=== PATIENT | female | born 1940 | race Caucasian/White ===

== ENCOUNTER → 2018-03-20 11:52 | Outpatient (CLI) | payer MEDICARE, OTHER, SELFPAY ==
[2018-03-20 12:52] LABS: Add Manual Diff / Slide Review NO; Basophils Percent Auto 1.1 % (0-2); Eosinophils Percent Auto 0.6 % (2-4); Hematocrit 41.7 % (36-46); Lymphocytes Percent Auto 20.7 % (25-40); Mean Corpuscular HGB Conc 33.5 % (30-36); Mean Corpuscular Hemoglobin 30.6 PG (26-34); Mean Corpuscular Volume 91.2 fL (80-100); Monocytes Percent Auto 4.8 % (3-14); Neutrophils Absolute Auto 6200 /uL (3000-5900); Neutrophils Percent Auto 72.8 % (50-75); Platelet Count 319 X10^3/uL (150-400); Red Blood Cell Count 4.58 X10^6/uL (4.0-5.2); White Blood Cell Count 8.6 X10^3/uL (4.5-11.0)
[2018-03-20 13:06] LABS: BUN Creatinine Ratio 25.7 (6-22); Blood Urea Nitrogen 18 mg/dL (7-17); C-Reactive Protein Quant < 0.5 mg/dL (<1.0); Carbon Dioxide 24 mmol/L (22-32); Chloride 102 mmol/L (98-107); Estimated Glomerular Filt Rate > 60.0 mL/min (>60); Glucose 119 mg/dL (80-110); HEMOLYSIS < 15 (0-50); Potassium 4.5 mmol/L (3.4-5.1); Sodium 136 mmol/L (137-145)
[2018-03-20 13:39] LABS: Erythrocyte Sedimentation Rate 5 MM/HR (0-20)
== END ==
PROVIDERS: PCP Physician Assistant Medical; Visit Provider Orthopaedic Surgery
DX: M25.551 Pain in right hip (principal)
CPT/HCPCS: 36415; 80048; 85025; 85651; 86140

== ENCOUNTER → 2018-04-17 10:44 | Outpatient (CLI) | payer MEDICARE, OTHER, SELFPAY | PROVIDERS: PCP Physician Assistant Medical; Visit Provider Orthopaedic Surgery | DX: M79.645 Pain in left finger(s) (principal); Z01.812 Encounter for preprocedural laboratory examination ==

== ENCOUNTER → 2018-05-06 09:58 | Outpatient (CLI) | payer MEDICARE, OTHER, SELFPAY ==
--- NOTE | 2018-05-06 | DI.MRI.S_ITS ---
PROCEDURE: MR HAND LT WO/W CON INDICATIONS: LEFT HAND PAIN TECHNIQUE: Coronal and axial T1 spin echo and T2 fast spin echo with fat saturation. Post-contrast coronal and axial T1 spin echo with fat saturation images through the left hand and wrist. COMPARISON: None. FINDINGS: Image quality: Excellent. Bones and cartilage: There is lateral subluxation of left thumb at the level of first CMC joint. There is complete loss of first CMC joint space with extensive subchondral sclerosis and cyst formation. Mild to moderate osteoarthritic changes are noted throughout first through fifth interphalangeal joints and MCP joints most prominent first and second MTP joints. Moderate osteophytic changes also noted throughout radiocarpal, ulnar carpal and intercarpal joints particularly involving the scaphotrapezial joint. Intraosseous cysts are noted within the trapezium, trapezoid, capitate, scaphoid and lunate. No fracture or dislocation is seen. Edema in first metacarpal base, trapezium and scaphoid are seen suggestive of changes secondary to osteoarthritis. There is suggestion of subtle bony erosive changes involving ulnar aspect of triquetrum and proximal portion of the scaphoid. Subtle erosive changes also likely present at the first CMC joint. After IV contrast infusion, no areas of intraosseous abnormal enhancement is seen. Synovium: Small amount of fluid is seen throughout wrist joints, CMC joints and MCP joints with mild contrast enhancement of the synovium suggestive of inflammatory changes. Soft tissues: Flexor and extensor tendons of left hand are grossly intact. Limited evaluation of intrinsic and extrinsic ligaments of left wrist shows no definite wrist ligament tear. Collateral ligaments of the MCP joints and interphalangeal joints are grossly intact. IMPRESSION: 1. Extensive joint space narrowing throughout left hand and wrist joints as described in detail above most prominent involving the first CMC joint with lateral subluxation. Subtle erosive changes are noted involving radiocarpal, ulnocarpal, as well as first CMC joint and scaphotrapezial joint. Enhancement of synovium throughout wrist joints suspicious for inflammatory arthropathy superimposed on extensive osteoarthritic changes in the wrist and hand. 2. Visualized tendons and ligaments are grossly intact. Dictated by: Manuel Malloy M.D. on 05/06/2018 at 14:54 Approved by: Manuel Malloy M.D. on 05/06/2018 at 15:12
[2018-05-06 10:21] LABS: BUN Creatinine Ratio 18.8 (6-22); Blood Urea Nitrogen 15 mg/dL (7-17); Estimated Glomerular Filt Rate > 60.0 mL/min (>60)
== END ==
PROVIDERS: PCP Physician Assistant Medical; Visit Provider Orthopaedic Surgery
DX: M79.645 Pain in left finger(s) (principal); Z01.812 Encounter for preprocedural laboratory examination
CPT/HCPCS: 36415; 73220; 82565; 84520

== ENCOUNTER 2019-04-29 14:08 | Observation (INO) | payer MEDICARE, OTHER, SELFPAY ==
[2019-04-29] VITALS (12 sets, daily range): BP systolic 124–157; BP diastolic 47–65; PULSE 61–80; RESP 14–23; TEMP 36.2–37.1; O2SAT 92–96; BMI 24.1
--- NOTE | 2019-04-29 15:15 | SUR.OPER ---
Supine on padded OR bed, head on pillow, right arm secured on padded arm board at <90 degrees abduction, left arm on hand table, legs uncrossed, safety belt at thigh, pillow under knees, tape over blanket over lower legs.
--- NOTE | 2019-04-29 15:30 | PM.PREOP ---
Pre-operative Note Interval Note History & Physical reviewed/Exam performed by Physician: Yes Changes to H&P: No
--- NOTE | 2019-04-29 15:36 | PM.HP.1 ---
History of Present Illness Date Patient Seen: 04/29/19 Time Patient Seen: 15:36 Chief complaint: Incision and Drainage Wound/Extremity Narrative: Patient with a 4 day history of redness and swelling and pain to the left hand. Patient gives a history of some drainage coming from the area around her basal joint Patient History Surgical History History of tonsillectomy Status post appendectomy Social History household members: none Family & Social History Social History: household members none Meds Home Medications Medication Instructions Recorded Confirmed Type Tirosint 50 mcg PO QDAY #0 cap 04/17/16 04/29/19 History leflunomide [Arava] 20 mg PO QDAY #0 04/17/16 04/29/19 History hydroxychloroquine 200 mg PO BIDCC #0 tab 07/10/16 04/29/19 History OMEGA-3 FATTY ACIDS (FISH OIL) 500 mg PO QDAY #0 09/18/16 04/29/19 History prednisone 5 mg PO QDAY #0 09/18/16 04/29/19 History acetaminophen [Tylenol Extra 2 tab PO BIDP PRN #0 12/22/17 04/29/19 History Strength] carvedilol 25 mg PO DAILY 04/29/19 04/29/19 History cephalexin 1 tab PO QID 04/29/19 04/29/19 History losartan 75 mg PO BID 04/29/19 04/29/19 History potassium chloride 10 meq PO DAILY 04/29/19 04/29/19 History spironolactone 25 mg PO DAILY 04/29/19 04/29/19 History Allergies Allergy/AdvReac Type Severity Reaction Status Date / Time celecoxib [From CELEBREX] AdvReac Severe GI UPSET Verified 04/29/19 15:12 hydrocodone [HYDROCODONE] AdvReac Severe DIZZY, GI Verified 04/29/19 15:12 UPSET levetiracetam [LEVETIRACETAM] AdvReac Severe I WAS Verified 04/29/19 15:12 BOUNCING OFF THE VILLA primidone [PRIMIDONE] AdvReac Severe DIZZY, GI Verified 04/29/19 15:12 UPSET sulfadiazine [SULFADIAZINE] AdvReac Unknown DIZZINESS, Verified 04/29/19 15:12 GI UPSET, FATIGUE Review of Systems Review of Systems All systems reviewed & are unremarkable except as noted in HPI and below Exam Vital Signs (past 8 hours): - 04/29/19 15:02 Temperature 98.3 F Pulse Rate 67 Respiratory Rate 20 Blood Pressure 144/65 H Pulse Oximetry 96 Oxygen Delivery Method Room Air Narrative Exam Narrative: Redness and swelling involving the hand. Patient is able to move the wrist but does have some difficulty moving the fingers mainly due to swelling and pain. No sign of any infection into the fingers themselves. Seems to be isolated from a possible ganglion cyst coming from the wrist. Assessment & Plan Assessment & Plan narrative: Patient with possible left hand infection. Due to the swelling and pain, patient is interested in a irrigation and debridement of the left hand. Fully understands the risks and limitations associated with the procedure.
[2019-04-29] MEDS: CEFAZOLIN 2 GM/100 ML FROZ.PIGGY IV (16:30)
[2019-04-29] MEDS: BUPIVACAINE 0.25% W/ EPI 30 ML VIAL INJ (16:36)
--- NOTE | 2019-04-29 16:54 | PM.OP.1 ---
Operative Date/Time/Diagnoses Date of procedure: 04/29/19 Time of procedure: 16:00 Pre-op diagnosis: Left hand infection Post-op diagnosis: same Procedure & Clinicians Procedure: Irrigation and debridement of left hand Same procedure as scheduled: Yes Indications: Patient with a history swelling and pain to the hand that started on Friday. Started to notice drainage yesterday. Surgeon: Truman Blevins Click Yes if Unassisted: Yes Anesthesia Type: General Operative Notes Findings: Superficial infection coming from the radial aspect of the wrist. With some tracking of both volarly and dorsally. No sign of any bony involvement. No sign of any involvement of the basal joint or radiocarpal joint. Closure Type: primary Specimen(s): other (Specimen sent for cultures and sensitivities) Applied: drain(s) Estimated Blood Loss (mL): 10 Blood products transfused: none Procedure in detail: On date of service, patient was met in the holding area. The surgeries once again discussed with the patient in remaining questions or concerns she had were answered fully. Patient was taken back to the operating theater and placed on the operating table in a supine position. Great care was taken to ensure that all bony prominences were appropriately padded. Time-out was performed verifying patient's name, procedure, and operative site. The left arm was prepped and draped in the normal sterile fashion. Patient already had a open wound to the radial aspect of the wrist just distal to the radial styloid. There was positive drainage from this open wound. This fluid was swabbed and sent to microbiology. Fifteen blade was used to extend the opening both distally and proximally. Was also used to excise some of the skin around the open wound. Bipolar electrocautery was used to achieve hemostasis. Pickups and tenotomies were then used to bluntly dissect both dorsally and volarly. There was no sign of any abscess formations or any other pockets of fluid. The wound was copiously irrigated with a L of saline. No sign of any additional drainage and no sign of any additional purulence. The wound was then packed with iodoform and then closed loosely. The hand was then cleaned, dried, and dressed patient was placed into a splint and taken to the PACU in stable condition. Complications: none Condition: stable Disposition: PACU Plan for aftercare: Patient will be admitted for IV antibiotics. Once we get final cultures results patient can be discharged home.
[2019-04-29] MEDS: LACTATED RINGERS 1,000 ML 42 ML IV (17:21)
[2019-04-29] MEDS: OXYCODONE IR 10 MG TABLET PO (18:00)
[2019-04-29] MEDS: LACTATED RINGERS 1,000 ML 125 ML IV (18:21)
[2019-04-29 19:22] LABS: Estimated Glomerular Filt Rate > 60.0 mL/min (>60)
[2019-04-29] MEDS: VANCOMYCIN 1,000 MG/200 ML PIGGYBACK 200 MG IV (19:28)
[2019-04-29] MEDS: LOSARTAN 50 MG TABLET 75 MG PO (20:58)
[2019-04-29] MEDS: DOCUSATE 100 MG CAPSULE PO (20:58)
[2019-04-30] VITALS (7 sets, daily range): BP systolic 114–163; BP diastolic 50–77; PULSE 56–74; RESP 15–20; TEMP 35.9–36.8; O2SAT 91–95
[2019-04-30] MEDS: OXYCODONE IR 10 MG TABLET PO (04:23)
[2019-04-30] MEDS: LEVOTHYROXINE 50 MCG TABLET PO (04:23)
[2019-04-30 05:18] LABS: Hematocrit 34.6 % (36-46); Hemoglobin 11.7 g/dL (12.0-16.0); Mean Corpuscular HGB Conc 33.7 % (30-36); Mean Corpuscular Hemoglobin 31.8 PG (26-34); Mean Corpuscular Volume 94.2 fL (80-100); Platelet Count 209 X10^3/uL (150-400); Red Blood Cell Count 3.68 X10^6/uL (4.0-5.2); Red Cell Distribution Width 14.3 % (11.6-14.8); White Blood Cell Count 16.5 X10^3/uL (4.5-11.0)
[2019-04-30] MEDS: VANCOMYCIN 1,000 MG/200 ML PIGGYBACK 200 MG IV (06:47)
[2019-04-30] MEDS: METOCLOPRAMIDE 10 MG/2 ML INJ IV ×2 (07:54→14:48)
--- NOTE | 2019-04-30 08:43 | P.PN_ITS ---
Subjective Date Patient Seen: 04/30/19 Time Patient Seen: 08:41 Interval history: Patient is postoperative day 1. Of an I&D of her left hand. Patient states that she has noticed significant improvement in pain. Patient was in a considerable amount of pain before surgery and right now is relatively pain-free and has not required any pain medication. Patient has also noticed a marked improvement in range of motion of her fingers. Patient's Gram stain did not show any organisms. Still waiting on cultures and sensitivities. Patient still has an elevated white count. Exam Vital Signs (past 8 hours): - 04/30/19 03:09 04/30/19 04:27 04/30/19 07:28 Temperature 98.0 F 98.2 F 97.8 F Pulse Rate 71 73 62 Respiratory Rate 16 18 18 Blood Pressure 120/50 L 137/69 163/77 H Pulse Oximetry 95 94 95 Oxygen Delivery Method Room Air Narrative Exam Narrative: On physical exam, swelling to the fingers is decreased. Patient can easily flex and extend the fingers without any pain or discomfort. Motion is greatly improved compared to preoperatively. Patient's splint is intact. Th e dressing is clean and dry. Objective Labs Result Diagrams: 04/30/19 05:05 04/29/19 19:08 Labs: Laboratory Results - last 24 hr 04/29/19 04/29/19 04/30/19 18:30 19:08 05:05 WBC 16.5 H RBC 3.68 L Hgb 11.7 L Hct 34.6 L MCV 94.2 MCH 31.8 MCHC 33.7 RDW 14.3 Plt Count 209 Creatinine 0.80 Estimated GFR > 60.0 Nasal Screen MRSA (PCR) Negative for mrsa Assessment & Plan Post-op Postoperative Procedures Operation Date: 04/29/19 15:15 Actual Procedures Side Surgeon p Incision and Drainage hand Left Truman Blevins MD Postoperative day: 1 Postoperative status: doing well Postoperative status narrative: Patient doing well after I&D of the left hand. We are awaiting culture results. Once those come back week and then discharge patient home on oral medication. Quality VTE Deep Vein Thrombosis/Pulmonary Embolism Present on Admission: No
[2019-04-30] MEDS: LEFLUNOMIDE 20 MG TABLET PO (08:45)
[2019-04-30] MEDS: CARVEDILOL 25 MG TABLET PO (08:45)
[2019-04-30] MEDS: HYDROXYCHLOROQUINE 200 MG TABLET PO (08:46)
[2019-04-30] MEDS: POTASSIUM CHLORIDE 10 MEQ TAB PO (08:46)
[2019-04-30] MEDS: DOCUSATE 100 MG CAPSULE PO (08:46)
[2019-04-30] MEDS: predniSONE 5 MG TABLET PO (08:46)
[2019-04-30] MEDS: SPIRONOLACTONE 25 MG TABLET PO (08:46)
[2019-04-30] MEDS: LOSARTAN 50 MG TABLET 75 MG PO (08:46)
[2019-04-30] MEDS: ACETAMINOPHEN 325 MG TABLET 975 MG PO (08:49)
--- NOTE | 2019-04-30 09:25 | CM.DANOTE ---
Addendum entered by Hue Mojica LPN 05/01/19 09:06: Checked on case this morning as d/c to home and HH orders noted from last night. Will alert [facility] by phone of the d/c. No d/c summary is available in EMR from Dr. Blevins so am sending the Provider dc Instructions and the Home medication list plus the specific HH orders/now clarified for RN/PT/OT/CLEAN OUT DRILLER via fax to [facility]. They plan to see pt tomorrow/05/02. Addendum entered by Hue Mojica LPN 04/30/19 13:53: Met again with pt as planned. She is now up eating lunch and nursing staff confirm that she has been able to get to the bathroom by herself. She is asking for toiletries so that she can do her basic sink hygiene/ENVIRONMENTAL SCIENTIST is updated and will provide this. Pt says she is very much hoping to stay on until Friday but knows this is likely not possible. She is considering asking another person in her community who works as a massage therapist if she can help her. Went over caregiver agency specifics/resources given Discussed specifics of HH services: choice list: given: 1: [facility] . (referral to Cas who says first opening would be [facility]. She suggested looking at other agencies first. Called [facility] with: no answer Called [facility]: Andra answered, accepted referral, can go out Friday if pt d/c's by Friday. Pt is updated and agreeable to same. Will fax initial clinical plus orders and Face/Face when obtained. Discussed Meals on Wheels and provided the specifics of this program in pt's area:[facility]: Deliveries: [id number]: hot and frozen meals. Volunteers also check on the safety of the homebound individuals and alert the office if further senior services are needed. Contacts: [facility] in [place]: [phone] or [phone]: [place]: Meals on Wheels Junior Systems Analyst or Li Hicks: Ct Manager. Pt is updated and plans to follow up on this Friday. She says that her friend Mikhail Tinoco will be picking her up at d/c and is coming later to hospital to bring her fresh clothes and some personal items. Asked about adult children: she says all of them live in different states. She does say that she had designated Jyoti Coley: son: John as her DPOA. . He does not know she is in the hospital and is in midst of traveling to be with his adult son and DIL who are expecting first child momentarily. This info provided to [facility] to include on pt's demographic information. P: at this point: likely home when stable for same....[facility]: RN/OT/PT/CLEAN OUT DRILLER (pd for by Medicare benefit) and other resource options as stated: paid for privately by patient. Addendum entered by Hue Mojica LPN 04/30/19 11:06: Met with pt as planned, introduced self and role. Pt is found lying in bed, L hand with large wrapped bandage in place, emesis bag next to her. Pt says I just threw up for the 3rd time this morning. Pt says that she does get around well at baseline without any assistive device. She has had prior hip and knee surgeries and does own a FWW. Pt also noted she has Rheumatoid Arthritis and is on medication for same. Pt confirms she is not (it's been over 6 years now...will alert [facility] to update the face sheet info) and that she does not have anyone to assist her at home during her recovery. Her primary contact Mikhail Tinoco is a friend who also lives in [place] but who is currently dealing with issues re her house a and not available to help her. Pt said she was under the impression from the care team members that Medicare would pay for caregivers in her home. Explained pvt caregiving vs the Medicare coverage for [facility] (pt would qualify for RN/OT/PT and CLEAN OUT DRILLER). Meals on Wheels may be a possibility: [facility]: [phone]. Also let her know that a short snf setting was only a possibility if she paid privately: Have now confirmed with [facility]: admission status: OBServation services. Pt did express shock that she would need to be paying privately for any services. Pt would benefit from seeing PT/OT in the hospital to help determine the extent of the services she will need at home. (not for specific work with her infected hand but to help her learn to use the rest of her body with any helpful tips and equipment as she figures out how to function safely in her home setting.) Have talked with RN Sid rascon same and she agrees to alert this DCPlanner when Dr. Blevins comes back in today. Have also discussed this with RN Cathleen Amaya: at his advice have left a vm for Dr. Blevins via triage nurse line at clinic: [phone] requesting above orders. Will be following... Addendum entered by Hue Mojica LPN 04/30/19 09:59: Just discussed case in Team Rounds. Confirmed PT/OT are not ordered. DONOR RELATIONS COORDINATOR also indicates pt wants resources to help her in the home setting. Will plan to see her now. Admission status: in review: per [facility] Original Note: Discharge Planning/Care Management DCP: assessment: case received, EMR reveiwed. Pt is a 79 year old female who admitted 04/29 to care of orthopedic team: Dr. lBevins Pt was taken to surgery 04/29 for an I & D of left hand: on antibiotics with culture and sensitivities pending.. PCP: Marilyn Lyle Payer: Medicare and [facility] Discharge Assessment Start: 04/30/19 09:24 Freq: Status: Active Protocol: Document 04/30/19 09:25 ITV (Rec: 04/30/19 09:25 ITV [id number]) Discharge Planning Assessment Advance Directives? Yes History Provided By Patient Medical Record Prior Living Arrangements House Household Members none Review Status In Process
[2019-04-30] MEDS: ONDANSETRON 4 MG ODT PO (11:28)
--- NOTE | 2019-04-30 13:42 | PC.NURSE ---
Pt c/o generalized abd achiness that is causing n/v. She relates this to taking oxycodone on an empty stomach. She reports the same thing happens with she takes hydrocodone. Her PMH includes a dx of IBS. Asked pt if symptoms felt similar to IBS. She acknowledges that it is a similar feeling. Administered IV reglan and ODT zofran without much relief in abd ache or improvement with nausea. Pt states she normally takes a home medication, librax, twice daily for IBS. Updated home med rec. Pharmacist states we do not carry this medication. Pt states she is unable to obtain from home supply as no one would be able to bring it to her. Repositioned pt for comfort and provided pt with requested osmin trena. Plan is for pt to potentially d/c home today pending cultures. On AM rounds, Dr. Blevins states he will be back to round later today. Will monitor.
--- NOTE | 2019-04-30 18:47 | PC.NURSE ---
183- Patient having difficulty finding a ride home. [employer] called and they state they do not have enough drivers to send here for a tile picker. We are currently looking for a ride for the patient.
== END 2019-04-30 19:00 | disposition home health service (06) ==
LOC: OR 14:11 → ICU 04-30 11:10
PROVIDERS: Admitting Provider Orthopaedic Surgery; PCP Physician Assistant Medical; Visit Provider Orthopaedic Surgery
PROC: (CPT 25028; principal; 2019-04-29 15:15)
DX: B99.8 Other infectious disease (principal); E03.9 Hypothyroidism, unspecified; I50.9 Heart failure, unspecified; I11.0 Hypertensive heart disease with heart failure; M18.12 Unilateral primary osteoarthritis of first carpometacarpal joint, left hand; M05.79 Rheumatoid arthritis with rheumatoid factor of multiple sites without organ or systems involvement
CPT/HCPCS: 25028; 36415; 82565; 85027; 87070; 87075; 87077; 87147; 87186; 87205; 87797; 93005; 93010; G0378; J0330; J0690; J1100; J2405; J2704; J2765; J3010

== ENCOUNTER → 2020-06-07 11:13 | Outpatient (CLI) | payer MEDICARE, OTHER, SELFPAY ==
[2019-04-29 18:30] VITALS: BMI 24.1
--- NOTE | 2020-06-07 | DI.MRI.S_ITS ---
PROCEDURE: MR LUMBAR SPINE WO CON INDICATIONS: Radiculopathy, lumbar region TECHNIQUE: Noncontrast sagittal T1 spin echo and T2 fast echo, sagittal STIR, axial T1 and T2 fast spin echo through the lumbar spine. In cases with scoliosis, additional coronal T2 fast spin echo may be performed. COMPARISON: [facility] [place], CR, XR LUMBAR SPINE 2 OR 3 VIEWS, 02/20/2018, 11:09. FINDINGS: Image quality: Excellent. Alignment and Curvature: 5 lumbar type vertebral bodies are present by plain film. There is loss of normal lumbar lordosis. There is moderate rightward curvature of the mid lumbar spine. There is mild grade 1 retrolisthesis of T11 on T12, T12 on L1, and L4 on L5. Mild grade 1 anterolisthesis of L5 on S1. Bone Marrow: Marrow is of normal overall signal. No acute vertebral body compression fractures. Bilateral L5-S1 pars interarticularis defects. Mild reactive signal throughout the endplates of the lumbar and lower thoracic spine. Spinal Cord: Conus medullaris terminates at the mid L2 level. Visualized cord demonstrates normal signal and size. Paraspinous Soft Tissues: No paravertebral masses. L1-L2: Moderate disc height loss and desiccation. Moderate diffuse disc bulge. Mild bilateral facet hypertrophy. Mild epidural lipomatosis. Mild canal stenosis. Moderate right and mild left foraminal stenosis. L2-L3: Moderate disc height loss and desiccation. Mild diffuse disc bulge/osteophyte. Mild bilateral facet hypertrophy. Mild epidural lipomatosis. Mild canal stenosis. Moderate left and mild right foraminal stenosis. L3-L4: Moderate disc height loss and desiccation. Mild diffuse disc bulge with superimposed broad-based left posterolateral protrusion. Mild bilateral facet hypertrophy. Mild epidural lipomatosis. Mild canal stenosis. Mild left greater than right foraminal stenosis. L4-L5: Moderate disc height loss and desiccation. Mild diffuse disc bulge with small superimposed broad-based right posterolateral protrusion/osteophyte. Mild bilateral facet hypertrophy. Mild canal stenosis. Mild bilateral foraminal stenosis. L5-S1: Severe disc height loss and desiccation. Mild diffuse disc bulge. Mild bilateral facet hypertrophy. Mild canal stenosis. Severe bilateral foraminal stenosis with bilateral L5 nerve root compression. IMPRESSION: 1. Multilevel degenerative disc and facet disease, as well as ligamentum flavum hypertrophy and epidural lipomatosis. 2. Grade 1 isthmic spondylolisthesis at L5-S1. 3. Mild multilevel canal stenosis. 4. Multilevel foraminal stenosis, worst at L5-S1 bilaterally where there is associated intraforaminal nerve root compression. Recommend correlation with clinical symptoms to ascertain relevance of this finding. Dictated by: Whitney Huntley M.D. on 06/07/2020 at 13:34 Approved by: Whitney Huntley M.D. on 06/07/2020 at 13:39
== END ==
PROVIDERS: PCP Physician Assistant Medical; Referring Provider Physician Assistant Medical; Visit Provider Orthopaedic Surgery
DX: M51.16 Intervertebral disc disorders with radiculopathy, lumbar region (principal); M51.17 Intervertebral disc disorders with radiculopathy, lumbosacral region; M43.17 Spondylolisthesis, lumbosacral region; M48.061 Spinal stenosis, lumbar region without neurogenic claudication; M48.07 Spinal stenosis, lumbosacral region; E88.2 Lipomatosis, not elsewhere classified
CPT/HCPCS: 72148

== ENCOUNTER → 2020-07-21 13:33 | Outpatient (CLI) | payer MEDICARE, OTHER, SELFPAY ==
[2019-04-29 18:30] VITALS: BMI 24.1
--- NOTE | 2020-07-21 | DI.MRI.S_ITS ---
PROCEDURE: MR SHOULDER RT WO CON INDICATIONS: Primary osteoarthritis, right shoulder TECHNIQUE: Noncontrast oblique coronal T2 fast spin echo with fat saturation, oblique sagittal T1 spin echo and T2 fast spin echo with fat saturation, axial T1 spin echo and T2 fast spin echo with fat saturation through the shoulder. COMPARISON: [facility], CT, CT SHOULDER RIGHT WITHOUT CONTRAST, 07/13/2020, 12:05. [facility] [place], CR, XR SHOULDER 2+ VIEWS BILATERAL, 06/12/2020, 13:51. FINDINGS: Image quality: Excellent. Rotator cuff: There is full-thickness tearing of the entire supraspinatus, infraspinatus, and subscapularis tendons, with medial retraction and atrophy the supraspinatus, infraspinatus, and subscapularis muscles. Teres minor is intact. Bones and bursae: A large, debris containing glenohumeral joint effusion is present. No acute bone marrow contusions or fractures. There is marked remodeling of the glenoid. Humeral head is subluxed superiorly. Severe acromioclavicular joint degeneration. The acromion demonstrates conventional anatomy, without an os acromiale. No pathologic subacromial-subdeltoid or subcoracoid bursal fluid is present. Capsule and soft tissues: Chronic full-thickness biceps tendon tearing. Remaining posterior glenoid labrum demonstrates severe degenerative tearing.. The rotator interval appears normal, without fibrosis. The coracohumeral ligament is normal in thickness. IMPRESSION: 1. Chronic full-thickness tearing and atrophy involving the subscapularis, supraspinatus, and infraspinatus tendons. 2. Chronic remodeling of the bony glenoid. 3. Large, debris containing glenohumeral joint effusion. 4. Severe acromioclavicular joint osteoarthritis. 5. Biceps tendon tearing. Dictated by: Whitney Huntley M.D. on 07/21/2020 at 15:37 Approved by: Whitney Huntley M.D. on 07/21/2020 at 15:42
== END ==
PROVIDERS: PCP Physician Assistant Medical; Referring Provider Orthopaedic Surgery; Visit Provider Orthopaedic Surgery
DX: M19.011 Primary osteoarthritis, right shoulder (principal); M75.121 Complete rotator cuff tear or rupture of right shoulder, not specified as traumatic; S46.211A Strain of muscle, fascia and tendon of other parts of biceps, right arm, initial encounter; M25.411 Effusion, right shoulder
CPT/HCPCS: 73221

== ENCOUNTER → 2020-08-21 13:01 | Outpatient (CLI) | payer MEDICARE, OTHER, SELFPAY ==
[2019-04-29 18:30] VITALS: BMI 24.1
[2020-08-21 14:04] LABS: COVID19 -Nasal RAPID Negative (Negative)
== END ==
PROVIDERS: PCP Physician Assistant Medical; Visit Provider Physician Assistant
DX: Z11.59 Encounter for screening for other viral diseases (principal)
CPT/HCPCS: 87635

== ENCOUNTER 2020-08-24 07:47 | Inpatient (IN) | payer MEDICARE, OTHER, SELFPAY ==
[2019-04-29 18:30] VITALS: BMI 24.1
[2020-08-09 09:44] VITALS: BMI 23.2
[2020-08-24] VITALS (16 sets, daily range): BP systolic 125–161; BP diastolic 56–99; PULSE 59–78; RESP 14–20; TEMP 36.1–36.9; O2SAT 93–98; BMI 23.2
[2020-08-24] MEDS: MELOXICAM 7.5 MG TABLET 15 MG PO (08:41)
[2020-08-24] MEDS: LACTATED RINGERS 1,000 ML 42 ML IV ×2 (09:34→12:37)
[2020-08-24] MEDS: VANCOMYCIN 1,000 MG/200 ML PIGGYBACK 200 MG IV (09:39)
--- NOTE | 2020-08-24 09:49 | PM.PREOP ---
Pre-operative Note COVID-19 COVID-19 status: Negative Result date/Date tested (Pos, Neg/Pending): 08/21/20 Interval Note History & Physical reviewed/Exam performed by Physician: Yes Changes to H&P: No
[2020-08-24] MEDS: fentaNYL 100 MCG/2 ML INJ 50 MCG IV (09:52)
--- NOTE | 2020-08-24 09:59 | PC.NURSE ---
Day shift: Dr Mon informed about Pt stating that she does not feel good (1000). Pt stated I feel the worse than I have in a few days.
--- NOTE | 2020-08-24 10:11 | SUR.PREOP ---
Block start time [0953] . Monitoring initiated and maintained throughout procedure. Oxygen and medications given per anesthesiologist instructions. Patient remained stable throughout procedure, no adverse reactions noted. Block end time [1006 ].
--- NOTE | 2020-08-24 10:12 | PC.NURSE ---
Day shift: Pt not on AC unit at this time (1015).
[2020-08-24] MEDS: GENTAMICIN 200 MG in SODIUM CHLORIDE 0.9% 100 ML 105 ML IV (10:25)
--- NOTE | 2020-08-24 10:48 | SUR.OPER ---
Beach chair with Maquet shoulder positioner. Lower body on padded OR bed. Head in foam padded head cradle, secured with straps. Non-operative arm secured <90 degrees abduction. Pillow under knees. Safety belt at thigh. Cloth tape over blanket over lower legs.
[2020-08-24] MEDS: LIDOCAINE 1% W/EPI 20 ML INJ (10:53)
--- NOTE | 2020-08-24 12:42 | PM.OP.1 ---
Operative Date/Time/Diagnoses Date of procedure: 08/24/20 Time of procedure: 10:45 Pre-op diagnosis: Right shoulder rotator cuff arthropathy Post-op diagnosis: same Procedure & Clinicians Procedure: Right reverse total shoulder arthroplasty Same procedure as scheduled: Yes Indications: Right right shoulder rotator cuff arthropathy Surgeon: Truman Blevins Chemical Preparer: Josefa Pimentel Click Yes if Unassisted: No Anesthesia Type: General and Peripheral nerve block Operative Notes Findings: Significant arthropathy to the right shoulder. Significant deformity of the glenoid as well as the humeral head. Signs of wear to the superior portion of the humeral head as well as the glenohumeral joint. Extensive reactive synovitis involving the capsule. Very large bursa to the anterior aspect of the shoulder due to the massive rotator cuff tear. Complete loss of the entire rotator cuff with a high-riding humeral head. No significant loose bodies. Limited bone stock involving the glenoid. Closure Type: primary Specimen(s): none sent Applied: implant(s) (24 mm base plate, 20 degree fully augmented, +2 lateralized; 36 neutral cup, 36+ 6 humeral insert, 30 3+4 lateralized/24 glenosphere size 6 stem) Estimated Blood Loss (mL): 100 Blood products transfused: none Procedure in detail: On date of service, Patient was met in the holding area. The operative site was signed and witnessed by the OR staff. The surgeries once again discussed with the patient and any remaining questions they had were answered fully. Patient was taken back to the operating theater and placed on the operating table in a supine position. Great care was taken to ensure that all bony prominences were properly padded. Patient was then placed into the beach chair position. The head and neck were properly positioned and secured. A timeout was performed verifying patient's name, procedure, and the operative site. The upper extremity was then prepped and draped in the normal sterile fashion. Previously, the bony anatomy and incision were marked out as well as injected with Marcaine with epinephrine. A deltopectoral approach was performed. 10 blade was used to incise the skin and fascial tissue. A deep knife was used to continue sharp dissection until the cephalic vein was visualized. The cephalic vein was dissected free allowing us to expose the deltopectoral interval. This interval was then developed. A Walters elevator was used to free up the deltoid of any scarring both superficially as well as deeply. The vein and the deltoid were taken laterally while the pectoralis was taken medially. This gave us good visualization of the strap muscles. The clavipectoral fascia was removed and the strap muscles were then retracted medially with the pectoralis. Patient had a significant high riding humeral head with articulation with the acromial arch. Patient had complete loss of the entire rotator cuff except for teres minor. The entire head was free of any soft tissue attachment. Patient had end-stage arthritic changes to the humeral head as well as the glenoid with large osteophytes anterior inferiorly as well as posteriorly. A Ronger was then used to remove the osteophytes. Patient had significant reactive synovitis involving the capsule. Quite a bit of degenerative changes throughout the entire capsule. Most of this capsular tissue was sharply excised and removed. An intramedullary guide was placed for the humeral cut. The head was removed. In a protective plate was placed to protect the osteotomy site. We then turned our attention to the glenoid. Patient has a significant deformity to the glenoid. Due to this deformity customized implants been ordered based on the CT scan templating. The degenerative anterior and inferior capsular tissue was removed. This was followed by removing the degenerative labral tissue from around the glenoid as well as the biceps insertion. This gave us good visualization of the glenoid. Using the customized glenoid guide a guide pin was placed. A customized glenoid guide allowed for the appropriate positioning on the glenoid face based on the CT scan. Once the guide pin was placed the glenoid was reamed with a customized glenoid Reamer. The glenoid was copiously irrigated removing any bony fragments in the central peg hole was drilled. The wedged glenoid base plate was impacted in position and screws were placed superiorly inferiorly as well as anteriorly. Not enough bone stock to place a screw posteriorly. Combination of locking and nonlocking screws were used. Once the base placed was securely fixated to the glenoid the glenoid sphere was impacted into place in the center screw was placed for additional fixation. The area was then copiously irrigated and we turned our attention to the humerus. We Return to our attention back to the humerus. The humerus was then reamed and broached. Trial stem was placed and then reamed for the placement of the cup. Trial liners were trialed as well and the shoulder was reduced and taken through range of motions. The +6 liner provided the most optimal stability. The trial components were removed and the final components were impacted into the humerus. A +6 liner was placed in the shoulders was reduced and taken through range of motion and was felt to be quite stable. The shoulder was copiously irrigated with pulse lavage and a drain was placed. The shoulder was closed in layered fashion and patient was extubated and taken to the PACU in stable condition. Complications: none Post-operative Condition: stable Disposition: PACU Plan for aftercare: Sling just for comfort. Since there is no subscapularis repair there was no rotator cuff repair that needs to be protected. Patient can engage in gentle range of motion mainly focusing on forward flexion and abduction. Okay to do external and internal rotation with the arm at the side. No significant extension of the shoulder.
[2020-08-24] MEDS: LACTATED RINGERS 1,000 ML 125 ML IV ×3 (13:20→22:03)
--- NOTE | 2020-08-24 13:28 | SUR.PHASEI ---
Report called to SANDEEP Mcleod on floor. Pt will be transferred to room 224 in stable condition with no c/o
[2020-08-24] MEDS: ONDANSETRON 4 MG ODT PO ×2 (13:34→18:32)
--- NOTE | 2020-08-24 14:18 | PC.NURSE ---
Pt has arrived to the AC floor at approx. 1350 via PACU. Pt is A X O x3 but sleepy. Aquacell dressing to right shoulder is CDI. Pt's right arm is in a sling and elevated on a pillow. She is currently on 2L O2 with sats 96%. She has been oriented to the room and the call light. Pt. has been instructed to call for assistance if she needs to get out of bed, Call light is within reach.
[2020-08-24] MEDS: OXYCODONE IR 10 MG TABLET PO ×2 (15:02→23:46)
--- NOTE | 2020-08-24 16:50 | PT.IIE ---
Current Diagnoses Rheumatoid arthritis with rheumatoid factor, unspecified (08/24/20) Primary osteoarthritis, right shoulder (08/24/20) Surgery Performed Operation Date: 08/24/20 09:45 Actual Procedures p Total Shoulder Arthroplasty - Reverse(Right) - Truman Blevins MD Surgical History (Last Updated 08/09/20 @ 10:39 by Michelle Silva, RN) History of arthroplasty of left knee History of bunionectomy of left great toe History of carpal tunnel release of both wrists History of reduction surgery of right breast History of tonsillectomy History of total right hip arthroplasty Hx of left mastectomy (1983) Hx of removal of cyst (04/29/19) Status post appendectomy Medical History (Last Updated 08/09/20 @ 10:32 by Michelle Silva RN) Anxiety Asthma (2019) Breast cancer, left (1982) CHF (congestive heart failure) HTN (hypertension) Pneumonia TIA (transient ischemic attack) Physical Therapy Inpatient Evaluation/Re-Eval M1 PT/OT-IP Prior Functional Status Start: 08/24/20 13:55 Freq: NEEDED Status: Active Protocol: Document 08/24/20 16:19 AW (Rec: 08/24/20 16:50 AW [id number]) Medical Review Prior Functional Status Medical History Reviewed Yes Communication WNL. Pt is an effective verbal communicator. Mobility and Gait Pt does not use any assistive device for household mobility. In the community, she ambulates from the car to the grocery store entrance and then uses a motorized cart for shopping. She states her mobility is limited by right knee pain. Activities of Daily Living and IADL's Independent with all I/ADL's Prior Functional Level (Other details) Pt reports at least two falls in the past one year. She is right hand dominant. She has history of ganglion cyst in her left thenar eminence. PMH also includes left breast cancer s/p mastectomy, CHF, and rheumatoid arthritis. Social History Household Members none Living Arrangements Mobile home Number of Floors (Floors) One Floor Number of Stairs To Enter/Railing? There is a ramp at the front entrance but pt tends to park near back entrance which has three TRISTAN with R rail ascending. Home Environment High Toilet,Walk in Shower, Built-In Shower Seat Home Equipment Front Wheel Walker,Four Wheel Walker,Straight Cane,Hand Held Shower,Business Director,Grab Bars Near Toilet,Grab Bars In Shower Additional Social History Comment Pt lives alone in a modular home in [place]. She has an adjustable bed. Her friend, Mikhail, lives nearby and will stay with the pt to provide assist until Friday. M2 PT-IP Current Condition Start: 08/24/20 13:55 Freq: NEEDED Status: Active Protocol: Document 08/24/20 16:19 AW (Rec: 08/24/20 16:50 AW [id number]) Physical Therapy Current Condition Current Condition Evaluation Date 08/24/20 Treatment Diagnosis R reverse TSA, impaired bilateral shoulder strength, dec indep with ADL's Onset Date 08/24/20 Precautions Shoulder Precautions Sling,PROM,Internal Rotation to Body,No External Rotation, Forward Flexion to 90 degrees, Pendulums Brace soft sling for comfort Other Precautions Per op note: Sling just for comfort. Since there is no subscapularis repair there was no rotator cuff repair that needs to be protected. Patient can engage in gentle range of motion mainly focusing on forward flexion and abduction. Okay to do external and internal rotation with the arm at the side. No significant extension of the shoulder. M3 PT-IP Subjective Start: 08/24/20 13:55 Freq: NEEDED Status: Active Protocol: Document 08/24/20 16:19 AW (Rec: 08/24/20 16:50 AW [id number]) Subjective Physical Therapy Visit Type Type Initial Evaluation Visit Start Time 15:54 Visit Stop Time 16:16 Total Visit Minutes 22 Physical Therapy Visit Comments Patient Comments Pt is willing to participate with PT Patient Goals To be able to take care of herself with less pain and difficulty. Therapy Pain Assessment Pain When Pain Assessed At Rest Location Right Shoulder Intensity 7 Scale Used Numeric (0 - 10) Pain Management Techniques Apply Cold,Timing of Activity with Medications M4 PT-IP Mobility and Gait Start: 08/24/20 13:55 Freq: NEEDED Status: Active Protocol: Document 08/24/20 16:19 AW (Rec: 08/24/20 16:50 AW [id number]) PT-Bed Mobility Assessment Sit to Supine Sit to Supine Standby Assistance,Head of Bed Elevated Scooting Scooting Up and Down in Bed Standby Assistance PT-Transfer Assessment Sit to and From Stand Sit to and from Stand Contact Guard Assistance,1 Person Assistance,Use of Upper Extremities Equipment Transfer Assistive Device None,Gait Belt Orthotic/Prosthetic Devices or Brace: Yes Transfers Transfer Destination Bed Transfer Technique pt ambulated without AD Transfer Ability Level of Assist Contact Guard Assistance Comments Mobility Comments Pt was sitting on the BSC as PT arrived. She completed pericare SBA and stood CGA without AD, transferring to the bedside chair set up in front of the commode CGA. She was unsteady on her feet with short steps and significant lateral lean in ipsilateral stance. BP was 141/76. Pt then stood and ambulated to the sink, reaching for the bed and countertop to steady herself with her left hand. Pt stood with UE support on the countertop as PT provided education on proper sling fitting with pt verbalizing understanding. Pt requested return to bed, reporting new onset nausea. With CGA, she ambulated to the bed and completed sit to supine SBA. Pt was positioned with HOB elevated and call light in reach. Bed alarm was armed for safety. Gait Assessment Gait Gait Assistance Required: Contact Guard Assist Distance (Feet) 10 Assistive Devices Assistive Device None,Gait Belt Orthotic/Prosthetic Devices or Brace: Yes Gait Deviations General Gait Pattern Antalgic,Decreased Stride Length,Decreased Feet Clearance,Flexed Trunk,Lateral Trunk Lean,Wide Based Gait Factors Limiting Gait Function Factors Limiting Gait Function Decreased Strength,Limited Range of Motion,Pain,Poor Balance,Poor Safety Awareness Comments Gait Comments See mobility comments for details. Pt states her gait today is close to her baseline . Stair Climbing Assessment Comments Stair Climbing Comments Not assessed. Pt will need to clear stairs prior to discharge. PT-Balance Assessment Sitting Balance and Reactions Static Sitting Balance Ability Good Dynamic Sitting Balance Ability Good Standing Balance and Reactions Static Standing Balance Ability Fair Dynamic Standing Balance Ability Fair Device Used none M5 PT-IP Objective Assessments Start: 08/24/20 13:55 Freq: NEEDED Status: Active Protocol: Document 08/24/20 16:19 AW (Rec: 08/24/20 16:50 AW [id number]) Orientation Orientation/Cognition Level of Alertness Alert Orientation Name,Age,Birthday,Month,Date, Year,Day of Week,Place, Situation Language Function Ability No Deficits Noted Safety Awareness Decreased Safety Awareness Gross Range of Motion Upper Extremity ROM Assessment Bilaterally Impaired Lower Extremity ROM Assessment Within Functional Limits Strength Upper Extremity Strength Assessment Bilaterally Impaired Shoulder L 4/5 Elbow L 4+/5 Wrist L 4-/5 Hand L 4-/5 Lower Extremity Strength Assessment Bilaterally Impaired Comments Strength Comments BLE grossly 4/5 Sensation Assessment Sensation Gross Sensation WNL Comments Sensation Comments Pt denies pain, tingling, numbness in bilateral arms. Muscle Tone Muscle Tone WNL Yes M6 PT-IP Treatment Start: 08/24/20 13:55 Freq: NEEDED Status: Active Protocol: Document 08/24/20 16:19 AW (Rec: 08/24/20 16:50 AW [id number]) Physical Therapy Treatment Exercises Exercises Shoulder Pendulums,Shoulder Flexion,Elbow Flexion/ Extension,Wrist ROM,Hand ROM Education Education Provided Precautions,Post-Op Packet, Safety Other Treatments Other Treatment Performed Provided education on role of PT, plan of care, ADL management, and shoulder precautions. M7 PT-IP Assessment and Plan Start: 08/24/20 13:55 Freq: NEEDED Status: Active Protocol: Document 08/24/20 16:19 AW (Rec: 08/24/20 16:50 AW [id number]) PT Summary Assessment and Plan Potential Rehabilitation Potential Good Status of Condition at Evaluation Evolving Summary Impairments Pain,ROM,Strength,Balance,Bed Mobility,Transfers,Gait, Activity Tolerance Assessment Summary Alize is a right-handed 80 yo woman seen for PT evaluation on POD0 following R reverse TSA. At baseline, she is independent with household mobility and uses an electric cart for shopping. She is limited in mobility due to right knee pain. On evaluation , pt required CGA for all out- of-bed mobility due to unsteadiness which pt states is near her baseline. She admits to at least two falls in the past one year. Pt was educated on sling management but will need at least one more acute PT session to review sling and precautions. She will also need to clear stairs prior to discharge. PT anticipates pt will be safe to discharge home with her friend, Mikhail, providing assist once medically cleared. She will also benefit from outpatient PT to improve shoulder ROM and strength. Goals Bed Mobility Goal Independent Transfer Goal Standby Assistance Gait Goal Standby Assistance Gait Distance 100 Other Goals - up/down 3 steps with right rail ascending with or without SPC Days to Meet Goals 3 Frequency of Treatment Frequency Of Treatment Twice a Day Treatment Plan Physical Therapy Treatment Plan Bed Mobility Training,Transfer Training,Gait Training, Therapeutic Exercise,Balance Retraining,Post Op Education, Discharge Planning,Hot or Cold Pack,Neuromuscular Re-ed Other Recommendations and Next Treatment review precautions and sling Focus management; stairs; assess gait/stairs with SPC Recommendations To Nursing Amount of Assist Needed 1 Person Assist Discharge Recommendations PT Discharge Recommendations Home with Assistance, Outpatient PT Transportation Needs at Discharge Private Vehicle
[2020-08-24] MEDS: MAGNESIUM HYDROXIDE 30 ML UDC PO (20:25)
[2020-08-24] MEDS: DOCUSATE 100 MG CAPSULE PO (20:25)
[2020-08-24] MEDS: LOSARTAN 50 MG TABLET 75 MG PO (20:26)
[2020-08-24] MEDS: carvediloL 12.5 MG TABLET PO (20:26)
[2020-08-24] MEDS: FLUTICASONE 120 SPRAY/16 GM SPRAY.SUSP NASAL (20:26)
[2020-08-24] MEDS: METOCLOPRAMIDE 10 MG/2 ML INJ IV (23:46)
[2020-08-25] VITALS (7 sets, daily range): BP systolic 109–132; BP diastolic 44–73; PULSE 61–73; RESP 13–17; TEMP 36.1–37.3; O2SAT 93–96
[2020-08-25] MEDS: ONDANSETRON 4 MG ODT PO ×2 (04:45→08:28)
[2020-08-25 05:10] LABS: Hematocrit 28.9 % (36-46); Hemoglobin 9.7 g/dL (12.0-16.0); Mean Corpuscular HGB Conc 33.4 % (30-36); Mean Corpuscular Hemoglobin 30.9 PG (26-34); Mean Corpuscular Volume 92.5 fL (80-100); Platelet Count 271 X10^3/uL (150-400); Red Blood Cell Count 3.13 X10^6/uL (4.0-5.2); Red Cell Distribution Width 14.4 % (11.6-14.8); White Blood Cell Count 11.5 X10^3/uL (4.5-11.0)
[2020-08-25] MEDS: LEVOTHYROXINE 50 MCG TABLET PO (05:35)
[2020-08-25] MEDS: LACTATED RINGERS 1,000 ML 125 ML IV (06:09)
[2020-08-25] MEDS: METOCLOPRAMIDE 10 MG/2 ML INJ IV (07:39)
[2020-08-25] MEDS: VANCOMYCIN 1,000 MG/200 ML PIGGYBACK 125 MG IV (08:29)
[2020-08-25] MEDS: FISH OIL 1,000 MG CAPSULE 1000 MG PO (08:49)
[2020-08-25] MEDS: POTASSIUM CHLORIDE 10 MEQ TAB PO (08:49)
[2020-08-25] MEDS: HYDROXYCHLOROQUINE 200 MG TABLET PO (08:50)
[2020-08-25] MEDS: FUROSEMIDE 20 MG TABLET PO (08:50)
[2020-08-25] MEDS: predniSONE 5 MG TABLET PO (08:50)
[2020-08-25] MEDS: carvediloL 12.5 MG TABLET PO ×2 (08:50→20:24)
[2020-08-25] MEDS: LOSARTAN 50 MG TABLET 75 MG PO ×2 (08:50→20:23)
[2020-08-25] MEDS: DOCUSATE 100 MG CAPSULE PO ×2 (08:50→20:23)
[2020-08-25] MEDS: SPIRONOLACTONE 25 MG TABLET PO (08:50)
--- NOTE | 2020-08-25 09:07 | P.PN_ITS ---
Subjective Subjective Date Patient Seen: 08/25/20 Time Patient Seen: 09:07 Interval history: POD #1 s/p right reverse TSA with Dr. Blevins. She has had significant nausea and vomiting since surgery. Unable to keep food down. Her pain is well controlled with oxycodone. She has been wearing her sling. Exam Vital Signs (past 8 hours): - 08/25/20 04:25 08/25/20 07:44 Temperature 96.9 F L 98.3 F Pulse Rate 66 66 Respiratory Rate 16 13 Blood Pressure 119/73 109/44 L Pulse Oximetry 93 94 Oxygen Delivery Method Room Air Oxygen Flow Rate 0 Narrative Exam Narrative: Patient sitting up in bed no acute distress. She is alert and oriented x3. Calves are soft, compressible, nontender bilaterally. Right shoulder dressingCDI. Drain in place. Radial pulses symmetrical. Special Needs Librarian strength strong and equal. Objective Labs Result Diagrams: 08/25/20 04:44 Labs: Laboratory Results - last 24 hr 08/25/20 04:44 WBC 11.5 H RBC 3.13 L Hgb 9.7 L Hct 28.9 L MCV 92.5 MCH 30.9 MCHC 33.4 RDW 14.4 Plt Count 271 PFSH Medical History Anxiety Asthma (2019) Breast cancer, left (1982) CHF (congestive heart failure) HTN (hypertension) Pneumonia TIA (transient ischemic attack) Surgical History History of arthroplasty of left knee History of bunionectomy of left great toe History of carpal tunnel release of both wrists History of reduction surgery of right breast History of tonsillectomy History of total right hip arthroplasty Hx of left mastectomy (1983) Hx of removal of cyst (04/29/19) Status post appendectomy Social History household members: none Smoking Status: Former smoker alcohol intake: former Assessment & Plan Post-op Postoperative Procedures: Procedures Operation Date: 08/24/20 09:45 Actual Procedures Side Surgeon p Total Shoulder Arthroplasty - Reverse Right Truman Blevins MD patient can mobilize with physical therapy today. Will try to get patient's nausea and vomiting under control today. Continue IV fluids well vomiting. Can DC drain today. Patient can discharge home tonight if she is feeling better, but anticipate her staying another night.
--- NOTE | 2020-08-25 09:48 | PC.NURSE ---
Day shift: Pt was not able to eat breakfast. Approx 10 minutes after having AM PO meds Pt had nausea and emesis. KLAUDIA [place] is aware of this. KLAUDIA has ordered IV Zofran. Will give if/when needed. Pt is now feeling better and is going to take a nap. Will continue to monitor and will give IV Zofran. Call light in reach. Pt agrees to not get OOB w/o help from staff. HAs not been impulsive.
[2020-08-25] MEDS: ONDANSETRON 4 MG/2 ML INJ IV ×2 (10:35→15:37)
[2020-08-25] MEDS: ACETAMINOPHEN 325 MG TABLET 975 MG PO ×2 (11:21→20:31)
[2020-08-25] MEDS: ASPIRIN EC 81 MG TABLET PO ×2 (11:59→20:23)
--- NOTE | 2020-08-25 12:06 | PT.IPTN ---
Current Diagnoses Rheumatoid arthritis with rheumatoid factor, unspecified (08/24/20) Primary osteoarthritis, right shoulder (08/24/20) Surgery Performed Operation Date: 08/24/20 09:45 Actual Procedures p Total Shoulder Arthroplasty - Reverse(Right) - Truman Blevins MD Physical Therapy Treatment Note M2 PT-IP Current Condition Start: 08/24/20 13:55 Freq: NEEDED Status: Active Protocol: Document 08/24/20 16:19 AW (Rec: 08/24/20 16:50 AW [id number]) Physical Therapy Current Condition Current Condition Evaluation Date 08/24/20 Treatment Diagnosis R reverse TSA, impaired bilateral shoulder strength, dec indep with ADL's Onset Date 08/24/20 Precautions Shoulder Precautions Sling,PROM,Internal Rotation to Body,No External Rotation, Forward Flexion to 90 degrees, Pendulums Brace soft sling for comfort Other Precautions Per op note: Sling just for comfort. Since there is no subscapularis repair there was no rotator cuff repair that needs to be protected. Patient can engage in gentle range of motion mainly focusing on forward flexion and abduction. Okay to do external and internal rotation with the arm at the side. No significant extension of the shoulder. M3 PT-IP Subjective Start: 08/24/20 13:55 Freq: NEEDED Status: Active Protocol: Document 08/25/20 11:38 KS (Rec: 08/25/20 13:36 KS [id number]) Subjective Physical Therapy Visit Type Type Treatment Note Visit Start Time 11:38 Visit Stop Time 12:06 Total Visit Minutes 28 Notes Pts friend Coralee present during treatment. Number of RIDES ATTENDANT Visits 1 Physical Therapy Visit Comments Patient Comments Pt is willing to participate with PT Patient Goals To be able to take care of herself with less pain and difficulty. M4 PT-IP Mobility and Gait Start: 08/24/20 13:55 Freq: NEEDED Status: Active Protocol: Document 08/25/20 11:38 KS (Rec: 08/25/20 13:36 KS [id number]) PT-Bed Mobility Assessment Sit to Supine Sit to Supine Standby Assistance,Head of Bed Elevated Scooting Scooting to Edge of Bed Standby Assistance Scooting Up and Down in Bed Moderate Assistance PT-Transfer Assessment Sit to and From Stand Sit to and from Stand Contact Guard Assistance,1 Person Assistance,Use of Upper Extremities Equipment Transfer Assistive Device None,Gait Belt Orthotic/Prosthetic Devices or Brace: Yes Transfers Transfer Destination Bed Transfer Technique Stand Step Pivot Transfer Ability Level of Assist Contact Guard Assistance Comments Mobility Comments Pt sitting EOB upon arrival from therapy w/ friend in room and sling donned. Pt CGA for sit<>stand w/o AD, pt used IV pole occasionally for balance when standing. Reviewed precautions and donning doffing of sling w/ pt and pts friend. Pt unable to scott/ doff sling for R shoulder d/t weakness and pain in L hand. Provided written instruction and illustration of correct way to scott sling. Pt and friend verbalized understanding. Pt c/o of slight nausea and did not want to ambulate today, but was able to take two small lateral steps towards HOB and stated she has been ambulating to the bathroom w/o assistance. Gait Assessment Gait Gait Assistance Required: Contact Guard Assist Distance (Feet) 2 Assistive Devices Assistive Device None,Gait Belt Orthotic/Prosthetic Devices or Brace: Yes Comments Gait Comments Please refer to mobility section for details. 2 small lateral steps only this AM. Stair Climbing Assessment Comments Stair Climbing Comments Not assessed. Pt will need to clear stairs prior to discharge. PT-Balance Assessment Sitting Balance and Reactions Static Sitting Balance Ability Good Dynamic Sitting Balance Ability Good Standing Balance and Reactions Static Standing Balance Ability Fair Dynamic Standing Balance Ability Fair Device Used none M5 PT-IP Objective Assessments Start: 08/24/20 13:55 Freq: NEEDED Status: Active Protocol: Document 08/24/20 16:19 AW (Rec: 08/24/20 16:50 AW [id number]) Orientation Orientation/Cognition Level of Alertness Alert Orientation Name,Age,Birthday,Month,Date, Year,Day of Week,Place, Situation Language Function Ability No Deficits Noted Safety Awareness Decreased Safety Awareness Gross Range of Motion Upper Extremity ROM Assessment Bilaterally Impaired Lower Extremity ROM Assessment Within Functional Limits Strength Upper Extremity Strength Assessment Bilaterally Impaired Shoulder L 4/5 Elbow L 4+/5 Wrist L 4-/5 Hand L 4-/5 Lower Extremity Strength Assessment Bilaterally Impaired Comments Strength Comments BLE grossly 4/5 Sensation Assessment Sensation Gross Sensation WNL Comments Sensation Comments Pt denies pain, tingling, numbness in bilateral arms. Muscle Tone Muscle Tone WNL Yes M6 PT-IP Treatment Start: 08/24/20 13:55 Freq: NEEDED Status: Active Protocol: Document 08/25/20 11:38 KS (Rec: 08/25/20 13:36 KS [id number]) Physical Therapy Treatment Exercises Exercises Elbow Flexion/Extension,Wrist ROM,Hand ROM Education Education Provided Precautions,Post-Op Packet, Safety Other Treatments Other Treatment Performed Provided sling donning/doffing education to pt and friend who will be staying w/ her temporarily. M7 PT-IP Assessment and Plan Start: 08/24/20 13:55 Freq: NEEDED Status: Active Protocol: Document 08/25/20 11:38 KS (Rec: 08/25/20 13:36 KS [id number]) PT Summary Assessment and Plan Potential Rehabilitation Potential Good Status of Condition at Evaluation Evolving Summary Impairments Pain,ROM,Strength,Balance,Bed Mobility,Transfers,Gait, Activity Tolerance Assessment Summary Pt CGA for transfers, Mod A for scooting up in bed. Pt unable to scott/doff her own sling at this time d/t pain and weakness in L hand. Provided reivew of donning/ doffing to pt and pts friend who will be staying w/ her temporarily as well as written instructions and illustrations for donning sling. Pt unwilling to ambulate or complete stair training today d/t nausea, but able to perform wrist and elbow flexion and extension and IR ER w/ some increase in pain. Pt verbalized understanding of no shoulder extension or excessive flexiob /abduction. Pt will need to complete stair training and will need to assess carryover/ friends ability to assist pt w / sling prior to d/c. Goals Bed Mobility Goal Independent Transfer Goal Standby Assistance Gait Goal Standby Assistance Gait Distance 100 Other Goals - up/down 3 steps with right rail ascending with or without SPC Days to Meet Goals 3 Frequency of Treatment Frequency Of Treatment Twice a Day Treatment Plan Physical Therapy Treatment Plan Bed Mobility Training,Transfer Training,Gait Training, Therapeutic Exercise,Balance Retraining,Post Op Education, Discharge Planning,Hot or Cold Pack,Neuromuscular Re-ed Other Recommendations and Next Treatment review precautions and sling Focus management; stairs; assess gait/stairs with SPC Recommendations To Nursing Amount of Assist Needed 1 Person Assist Discharge Recommendations PT Discharge Recommendations Home with Assistance, Outpatient PT Transportation Needs at Discharge Private Vehicle
--- NOTE | 2020-08-25 12:24 | CM.DANOTE ---
Discharge Planning/Care Management DCP: assessment: case received, EMR reviewed and occupational health manager d/c order was noted. This was then cancelled late morning by marjorie Kim as pt was continuing to have nausea/vomiting and this was slowing her ability to work with therapy. Met now with pt and her friend Mikhail Tinoco. Introduced self and role. Pt is an 80 year old female who admitted 08/24 for a scheduled R shoulder surgery. She is R hand dominent and has a sling in place. Per Dr. Humphrey: for comfort. Medicare and [employer] Admission status: INPT: confirmed by UR SANDEEP Adler Pt and Mikhail confirm the dc plan as home and with Mikhail planning to stay with pt for about 3 days. She says she does live only 10 minutes away and that she can extend her stay if needed. PT has worked just now with pt and Mikhail and notes that she is progressing toward home plan but that sling management is very difficult for pt at this time. Asked about OT need, especially to give pt pointer on ADL specific (to include toileting). PT agreed this would be helpful. Have left a vm now with Marjorie Kim to request OT order if appropriate. SANDEEP Yee is updated P: home when stable for same. Mikhail will take pt home at d/c. Pt has a ramp in front her manufacture home and a few steps with rail in back. Pt says he has an Outpt PT appt set up for Tuesday 08/28. Advanced directive, confirm from FAMILY Start: 08/24/20 14:41 Freq: Q24H Status: Active Protocol: Document 08/24/20 14:41 YAD (Rec: 08/24/20 14:42 YAD [id number]) Advance Directive, confirm on record Time 14:42 Person contacted patient Copy received No CM Discharge Assessment Start: 08/25/20 12:21 Freq: Status: Active Protocol: Document 08/25/20 12:22 ITV (Rec: 08/25/20 12:24 ITV [id number]) Discharge Planning Assessment Advance Directives? Yes History Provided By Patient,Medical Record Prior Living Arrangements Mobile home Household Members none Type of transportation used prior to Drives own vehicle admit Independent with ADL's Yes Is patient alert and oriented? Yes DME Already Rented / Owned FWW / Walker,Cane,Other Comment uses no assistive device in her home. uses motorized scooter at store Patient/Family Preference OP PT Therapy Review Status In Process Pre-Anesthesia Assessment Start: 08/09/20 09:44 Freq: Status: Active Protocol: Document 08/09/20 09:44 [facility] (Rec: 08/09/20 10:48 CAB [id number]) Pre-Anesthesia Assessment Preferred Name [facility]ize Patient Information Reviewed Via Phone Assessment Assessment Completed With Patient Comment Pt needs to do labs/EKG, COVID screen @ 08/21/20 Primary Care Provider Marilyn Lyle Seen Specialist in Last 12 Months Yes Specialist Seen Mass Spectrometry Specialist,Orthopedist,Other Comment Rheumatology Primary Language Telugu Preferred Language Telugu Core Java Software Engineer Required No Height 160.02 cm Weight 59.421 kg Body Mass Index (BMI) 23.2 Hearing Ability Normal Visual Assist Glasses Dentition Type Teeth, Natural Present,Partial - Lower,Full- Upper Barriers to Learning None,Memory Hx Anesthesia Reactions Yes: PONV Hx Family Anesthesia Reaction No Hx Malignant Hyperthermia No Hx Blood Transfusions No Hx Blood Transfusion Reaction No Anesthesia Review Requested No alcohol intake former Smoking Status Former smoker how long ago did patient quit smoking Quit in the 60's Substance Use Type does not use Pain Present Pain Reported Musculoskeletal Symptoms Abnormal Gait,Difficulty Walking,Joint Pain,Joint Stiffness,Limited Range of Motion,Neck Pain,Radiating Pain into Limb History of Falling (Recent or History of Yes ) Patient is completely paralyzed or No completely immobile Prosthesis or Orthotic Device Cane,Front Wheel Walker Mental Status Oriented to own ability Is patient on oxygen? No Does patient have TODD/SOB Yes: r/t Asthma Hx Sleep Apnea No CPAP/BIPAP use not prescribed Currently Taking a Beta Ayush Yes: Carvedilol Can You Climb a Flight of Stairs Without No SOB Hx Chest Pain No Hx SOB Yes: r/t Asthma Hx Syncope or Dizziness Yes: Occasional dizziness Anti-Coagulant Therapy No Has a Mass Spectrometry Specialist Yes: Dr. Perez Hx Pacemaker/ICD No Pacemaker Rep Required? No Cardiac Clearance Received Yes Comment Cardiac records scanned Diet Type At Home Regular dysphagia No Gastrointestinal Symptoms Abdominal Pain,Constipation, Diarrhea,Reflux Comment Hx IBS Urinary Catheter Present No Hx Urinary Self Catheterization No Diabetes No Patient No Presence of External or Internal Medical Yes: Lt knee, Rt hip Devices prosthesis Have you had any close contact with No someone diagnosed with COVID-19? Marital Status / Lives With none Prior Living Arrangements Mobile home Support System Friend(s) Does the Patient Have Assistance After Yes: Friend will stay w/pt to Surgery assist w/care Patient Discharge Plan Description Return Home Comment Pt advised overnight length of stay per surgeon Feels Safe in Current Environment Yes Been Physically Hurt or Threatened By a No Person in Current Environment Do you have thoughts of harming yourself None or others? Are you currently considering suicide? No Do you have a plan to hurt yourself or No Plan others? Do You Have Any Spiritual Beliefs That No May Affect Your HC Choices? Do You Have Any Cultural Practices That No May Affect Your HC Choices? Comment [employer] Who Can We Speak to About Patient's Care Family, friends Identifying Code for Release of Patient Declines to issue Information Health Care Proxy/Next of Kin Devyn (son) Health Care Proxy Emergency Contact Name [facility] Emergency Contact or [phone] Advance Directives? Yes Power of Box Covering Machine Operator No PAC Instructions Durable medical equipment, Medications to take/avoid, Nasal antibiotic,No ETOH/ petroleum product on skin DOS, NPO,Post-op transportation, Sturdy shoes/comfortable clothes,Do not bring valuables and remove jewelry
--- NOTE | 2020-08-25 13:27 | PC.NURSE ---
Day shift: Pt tolerated her lunch ok today. Reports some nausea but able to not have any emesis. Pt does have Hx of CHF and IV fluids stopped at approx 1330. KLAUDIA Salinas called and left message regaurding Pt Hx CHF. Pt not having any trouple breathing. No SOB. Lung sounds clear at this time. Encouraged Pt to take PO fluids as tolerated. Will continue to monitor. Call light in reach. Aquacel remains CDI. Pt's CMS intact with good radial pulse and cap refill. Pt's RUE is warm to the touch.
--- NOTE | 2020-08-25 14:23 | OT.IP.TRT ---
Current Diagnoses Rheumatoid arthritis with rheumatoid factor, unspecified (08/24/20) Primary osteoarthritis, right shoulder (08/24/20) Surgery Performed Operation Date: 08/24/20 09:45 Actual Procedures p Total Shoulder Arthroplasty - Reverse(Right) - Truman Blevins MD Occupational Therapy Treatment Note M3 OT- IP Subjective and Pain Start: 08/25/20 14:22 Freq: Status: Active Protocol: Document 08/25/20 14:22 CGR (Rec: 08/25/20 14:23 CGR [id number]) OT- Subjective Occupational Therapy Visit Type Type Administrative Note Notes Attempted to see pt for OT services. Pt declined stating that she wanted a nap. Will hold at this time and follow up tomorrow.
[2020-08-25] MEDS: ALBUTEROL HFA MDI 60 PUFF/8 GM INHALER INH (14:46)
--- NOTE | 2020-08-25 14:55 | PT.IPTN ---
Current Diagnoses Rheumatoid arthritis with rheumatoid factor, unspecified (08/24/20) Primary osteoarthritis, right shoulder (08/24/20) Surgery Performed Operation Date: 08/24/20 09:45 Actual Procedures p Total Shoulder Arthroplasty - Reverse(Right) - Truman Blevins MD Physical Therapy Treatment Note M2 PT-IP Current Condition Start: 08/24/20 13:55 Freq: NEEDED Status: Active Protocol: Document 08/24/20 16:19 AW (Rec: 08/24/20 16:50 AW [id number]) Physical Therapy Current Condition Current Condition Evaluation Date 08/24/20 Treatment Diagnosis R reverse TSA, impaired bilateral shoulder strength, dec indep with ADL's Onset Date 08/24/20 Precautions Shoulder Precautions Sling,PROM,Internal Rotation to Body,No External Rotation, Forward Flexion to 90 degrees, Pendulums Brace soft sling for comfort Other Precautions Per op note: Sling just for comfort. Since there is no subscapularis repair there was no rotator cuff repair that needs to be protected. Patient can engage in gentle range of motion mainly focusing on forward flexion and abduction. Okay to do external and internal rotation with the arm at the side. No significant extension of the shoulder. M3 PT-IP Subjective Start: 08/24/20 13:55 Freq: NEEDED Status: Active Protocol: Document 08/25/20 14:20 KS (Rec: 08/25/20 15:40 KS [id number]) Subjective Physical Therapy Visit Type Type Treatment Note Visit Start Time 14:20 Visit Stop Time 14:55 Total Visit Minutes 25 Number of ACRYLIC FABRICATOR Visits 2 Physical Therapy Visit Comments Patient Comments Pt is willing to participate with PT Patient Goals To be able to take care of herself with less pain and difficulty. M4 PT-IP Mobility and Gait Start: 08/24/20 13:55 Freq: NEEDED Status: Active Protocol: Document 08/25/20 14:20 KS (Rec: 08/25/20 15:40 KS [id number]) PT-Bed Mobility Assessment Supine to Sit Supine to Sit Standby Assistance,Head of Bed Elevated Sit to Supine Sit to Supine Standby Assistance,Head of Bed Elevated Scooting Scooting to Edge of Bed Standby Assistance PT-Transfer Assessment Sit to and From Stand Sit to and from Stand Contact Guard Assistance,1 Person Assistance,Use of Upper Extremities Equipment Transfer Assistive Device None,Gait Belt Orthotic/Prosthetic Devices or Brace: Yes Transfers Transfer Destination Bed Transfer Technique pt ambulated w/ FWW Transfer Ability Level of Assist Contact Guard Assistance Comments Mobility Comments Pt in bed upon arrival from therapy. SBA for sup<>sit and scooting EOB. CGA for sit<> Stand w/ FWW. Pt then ambulated ~50 ft w/o AD and CGA. Pt expressed fatigue and slight shortness of breath, but able to return to bed CGA. Nursing notifed and pt left in room w/ all needs in reach and SCDs on. Gait Assessment Gait Gait Assistance Required: Contact Guard Assist Distance (Feet) 50 Assistive Devices Assistive Device None,Gait Belt Orthotic/Prosthetic Devices or Brace: Yes Gait Deviations General Gait Pattern Antalgic,Decreased Stride Length,Decreased Feet Clearance,Flexed Trunk,Lateral Trunk Lean,Wide Based Gait Factors Limiting Gait Function Factors Limiting Gait Function Decreased Strength,Limited Range of Motion,Pain,Poor Balance,Poor Safety Awareness Comments Gait Comments Pt ambulated ~50 ft w/o AD and CGA. Stair Climbing Assessment Comments Stair Climbing Comments Not assessed. Pt will need to clear stairs prior to discharge. PT-Balance Assessment Sitting Balance and Reactions Static Sitting Balance Ability Good Dynamic Sitting Balance Ability Good Standing Balance and Reactions Static Standing Balance Ability Fair Dynamic Standing Balance Ability Fair Device Used none M5 PT-IP Objective Assessments Start: 08/24/20 13:55 Freq: NEEDED Status: Active Protocol: Document 08/24/20 16:19 AW (Rec: 08/24/20 16:50 AW [id number]) Orientation Orientation/Cognition Level of Alertness Alert Orientation Name,Age,Birthday,Month,Date, Year,Day of Week,Place, Situation Language Function Ability No Deficits Noted Safety Awareness Decreased Safety Awareness Gross Range of Motion Upper Extremity ROM Assessment Bilaterally Impaired Lower Extremity ROM Assessment Within Functional Limits Strength Upper Extremity Strength Assessment Bilaterally Impaired Shoulder L 4/5 Elbow L 4+/5 Wrist L 4-/5 Hand L 4-/5 Lower Extremity Strength Assessment Bilaterally Impaired Comments Strength Comments BLE grossly 4/5 Sensation Assessment Sensation Gross Sensation WNL Comments Sensation Comments Pt denies pain, tingling, numbness in bilateral arms. Muscle Tone Muscle Tone WNL Yes M6 PT-IP Treatment Start: 08/24/20 13:55 Freq: NEEDED Status: Active Protocol: Document 08/25/20 14:20 KS (Rec: 12/04/20 15:40 KS [id number]) Physical Therapy Treatment Exercises Exercises Elbow Flexion/Extension,Wrist ROM,Hand ROM Education Education Provided Precautions,Post-Op Packet, Safety Other Treatments Other Treatment Performed Reviewed UE exercises M7 PT-IP Assessment and Plan Start: 08/24/20 13:55 Freq: NEEDED Status: Active Protocol: Document 08/25/20 14:20 KS (Rec: 08/25/20 15:40 KS [id number]) PT Summary Assessment and Plan Potential Rehabilitation Potential Good Status of Condition at Evaluation Evolving Summary Impairments Pain,ROM,Strength,Balance,Bed Mobility,Transfers,Gait, Activity Tolerance Assessment Summary Pt SBA to CGA for bed mobility and transfers. Pt able to tolerate ~50 ft ambulation w/ CGA and no AD but reported fatigue and SOB following. Reviewed appropriate UE exercises w/ pt to complete w/ o sling. Will need to complete stairs and assess carryover w / friend for donning/doffing sling prior to d/c. Goals Bed Mobility Goal Independent Transfer Goal Standby Assistance Gait Goal Standby Assistance Gait Distance 100 Other Goals - up/down 3 steps with right rail ascending with or without SPC Days to Meet Goals 3 Frequency of Treatment Frequency Of Treatment Twice a Day Treatment Plan Physical Therapy Treatment Plan Bed Mobility Training,Transfer Training,Gait Training, Therapeutic Exercise,Balance Retraining,Post Op Education, Discharge Planning,Hot or Cold Pack,Neuromuscular Re-ed Other Recommendations and Next Treatment review precautions and sling Focus management; stairs; assess gait/stairs with SPC Recommendations To Nursing Amount of Assist Needed 1 Person Assist Discharge Recommendations PT Discharge Recommendations Home with Assistance, Outpatient PT Transportation Needs at Discharge Private Vehicle
[2020-08-25] MEDS: FLUTICASONE 120 SPRAY/16 GM SPRAY.SUSP NASAL (20:23)
[2020-08-25] MEDS: SODIUM CHLORIDE 0.9% FLUSH 10 ML IV (20:23)
[2020-08-25] MEDS: MAGNESIUM HYDROXIDE 30 ML UDC PO (20:23)
[2020-08-26 00:02] VITALS: BP 100/56; PULSE 64; RESP 18; TEMP 36.3; O2SAT 94
[2020-08-26] MEDS: LORazepam 2 MG/ML INJ 0.5 MG IV (02:22)
[2020-08-26] MEDS: LEVOTHYROXINE 50 MCG TABLET PO (05:02)
[2020-08-26] MEDS: ACETAMINOPHEN 325 MG TABLET 975 MG PO (05:02)
[2020-08-26 05:15] VITALS: BP 131/69; PULSE 62; RESP 16; TEMP 35.9; O2SAT 93
[2020-08-26 08:08] VITALS: PULSE 78; RESP 16; O2SAT 96
[2020-08-26] MEDS: ALBUTEROL HFA MDI 60 PUFF/8 GM INHALER INH (08:12)
[2020-08-26 08:15] VITALS: BP 133/76; PULSE 70; RESP 16; TEMP 36.7; O2SAT 95
--- NOTE | 2020-08-26 08:43 | P.DS_ITS ---
History of Present Illness History of Present Illness Date Patient Seen: 08/26/20 Time Patient Seen: 08:43 Chief complaint: INPT Narrative: Right right shoulder rotator cuff arthropathy Discharge Providers Provider Date of admission: 08/24/20 07:47 Discharge Date: 08/26/20 Primary care physician: Marilyn Lyle PA-C Consults: 08/24/20 12:35 Consult to Discharge Planning Routine Comment: Consult to Physical Therapy Evaluate & Treat Comment: Patient is status post reverse TSA Physician Instructions: Evaluate and Treat Consult to Respiratory Therapy Evaluate & Treat Comment: Physician Instructions: Evaluate and treat 08/25/20 12:43 Consult to Occupational Therapy Evaluate & Treat Comment: Physician Instructions: Evaluate and treat Discharge provider: Ruby Salinas PA-C Summary Hospital Course Discharge Diagnosis: s/p Reverse TSA Hospital Course: Shelbi was admitted for a right reverse total shoulder a rthroplasty wtih Dr. Blevins. Hospital course was remarkable for significant nausea and vomiting. This resolved POD #1 afternoon but limited how much she was able to do during the day. On POD #2 she was feeling much better and ready to DC home. Exam Vital Signs (past 8 hours): - 08/26/20 05:15 08/26/20 08:08 Temperature 96.6 F L Pulse Rate 62 78 Respiratory Rate 16 16 Blood Pressure 131/69 Pulse Oximetry 93 96 Oxygen Delivery Method Room Air Oxygen Flow Rate 0 Narrative Exam Narrative: Patient sitting in bedside chair in NAD. She is alert and oriented X3. Calves are soft, compressible, and nontender bilaterally. Radial pulses are symmetrical. 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 Aquacel over right shoulder is CDI. Drain was removed with tegederm over drain site. She is feeling much better this morning. Objective Labs Result Diagrams: 08/25/20 04:44 COUNTS INCLUDE 234 BEDS AT THE [facility] Medical History Anxiety Asthma (2019) Breast cancer, left (1982) CHF (congestive heart failure) HTN (hypertension) Pneumonia TIA (transient ischemic attack) Surgical History History of arthroplasty of left knee History of bunionectomy of left great toe History of carpal tunnel release of both wrists History of reduction surgery of right breast History of tonsillectomy History of total right hip arthroplasty Hx of left mastectomy (1983) Hx of removal of cyst (04/29/19) Status post appendectomy Social History household members: none Smoking Status: Former smoker alcohol intake: former Discharge Plan Discharge Plan Patient Disposition: Home Discharge orders & Medications Prescriptions: New acetaminophen 325 mg Tablet 975 mg PO TID PRN (Reason: Headache) Qty: 30 RF: 0 docusate sodium [DOK] 100 mg Capsule 100 mg PO BID Qty: 30 RF: 0 ondansetron HCl [Zofran] 4 mg tablet 4 mg PO Q6H PRN (Reason: nausea and vomiting) Qty: 20 RF: 0 hydrocodone-acetaminophen [Ralls] 5-325 mg tablet 1 tab PO Q4-6H PRN (Reason: pain) Qty: 40 RF: 0 aspirin 81 mg Tablet,Delayed Release (Dr/Ec) 81 mg PO BID Qty: 20 RF: 0 Continued leflunomide [Arava] 20 MG tablet 20 mg PO QDAY Qty: 0 RF: 0 hydroxychloroquine 200 MG tablet 200 mg PO DAILY Qty: 0 RF: 0 prednisone 5 MG tablet 5 mg PO QDAY Qty: 0 RF: 0 omega-3 fatty acids Capsule 1,000 mg PO DAILY Qty: 0 RF: 0 acetaminophen [Tylenol Extra Strength] 500 MG tablet 2 tab PO BIDP PRN (Reason: Pain (Scale Score 1-3)) Qty: 0 RF: 0 amitriptyline 10 mg Tablet 10 mg PO BEDTIME RF: 0 albuterol sulfate 90 mcg/actuation Hfa Aerosol Inhaler 1 inh INHALATION TID PRN (Reason: Shortness Of Breath) RF: 0 fluticasone propionate 50 mcg/actuation [place],Suspension 2 spray INTRANASAL BID RF: 0 levothyroxine 50 mcg Capsule 50 mcg PO DAILY RF: 0 PreserVision AREDS-2 [id number] Capsule 1 tab PO BID RF: 0 carvedilol 25 mg Tablet 12.5 mg PO BID RF: 0 potassium chloride 10 mEq Tablet Extended Release 10 meq PO DAILY RF: 0 spironolactone 25 mg Tablet 25 mg PO DAILY RF: 0 losartan 100 mg Tablet 75 mg PO BID RF: 0 chlordiazepoxide-clidinium [Librax (with clidinium)] 5-2.5 mg Capsule 1 cap PO BID RF: 0 furosemide 20 mg Tablet 1 tab PO DAILY RF: 0 Discontinued hydrocodone-acetaminophen 5-325 mg Tablet 1 tab PO Q4-6H PRN (Reason: Pain) RF: 0 Follow up/Referrals: Truman Blevins MD [Physician] - Marilyn Lyle PA-C [Primary Care Provider] - Skin/Wound/Dressing Care Dressing: leave in place until appointment Visit Report/Discharge Packet Instructions: How to Use a Sling, DI for Heart Failure, DI for Constipation, How to Prevent Falls, DI for Shoulder Replacement Discharge Data Primary Care Provider: Marilyn Lyle
[2020-08-26] MEDS: SPIRONOLACTONE 25 MG TABLET PO (08:56)
[2020-08-26] MEDS: FISH OIL 1,000 MG CAPSULE 1000 MG PO (08:56)
[2020-08-26] MEDS: POTASSIUM CHLORIDE 10 MEQ TAB PO (08:56)
[2020-08-26] MEDS: DOCUSATE 100 MG CAPSULE PO (08:56)
[2020-08-26] MEDS: predniSONE 5 MG TABLET PO (08:56)
[2020-08-26] MEDS: carvediloL 12.5 MG TABLET PO (08:56)
[2020-08-26] MEDS: LOSARTAN 50 MG TABLET 75 MG PO (08:57)
[2020-08-26] MEDS: HYDROXYCHLOROQUINE 200 MG TABLET PO (08:57)
[2020-08-26] MEDS: ASPIRIN EC 81 MG TABLET PO (08:57)
[2020-08-26] MEDS: FUROSEMIDE 20 MG TABLET PO (08:57)
--- NOTE | 2020-08-26 10:25 | PT.IPTN ---
Current Diagnoses Rheumatoid arthritis with rheumatoid factor, unspecified (08/24/20) Primary osteoarthritis, right shoulder (08/24/20) Surgery Performed Operation Date: 08/24/20 09:45 Actual Procedures p Total Shoulder Arthroplasty - Reverse(Right) - Truman Blevins MD Physical Therapy Treatment Note M2 PT-IP Current Condition Start: 08/24/20 13:55 Freq: NEEDED Status: Active Protocol: Document 08/24/20 16:19 AW (Rec: 08/24/20 16:50 AW [id number]) Physical Therapy Current Condition Current Condition Evaluation Date 08/24/20 Treatment Diagnosis R reverse TSA, impaired bilateral shoulder strength, dec indep with ADL's Onset Date 08/24/20 Precautions Shoulder Precautions Sling,PROM,Internal Rotation to Body,No External Rotation, Forward Flexion to 90 degrees, Pendulums Brace soft sling for comfort Other Precautions Per op note: Sling just for comfort. Since there is no subscapularis repair there was no rotator cuff repair that needs to be protected. Patient can engage in gentle range of motion mainly focusing on forward flexion and abduction. Okay to do external and internal rotation with the arm at the side. No significant extension of the shoulder. M3 PT-IP Subjective Start: 08/24/20 13:55 Freq: NEEDED Status: Active Protocol: Document 08/26/20 10:05 KS (Rec: 08/26/20 11:43 KS [id number]) Subjective Physical Therapy Visit Type Type Treatment Note Visit Start Time 10:05 Visit Stop Time 10:25 Total Visit Minutes 20 Number of FLOORWALKER Visits 3 Physical Therapy Visit Comments Patient Comments Pt is willing to participate with PT Patient Goals To be able to take care of herself with less pain and difficulty. M4 PT-IP Mobility and Gait Start: 08/24/20 13:55 Freq: NEEDED Status: Active Protocol: Document 08/26/20 10:05 KS (Rec: 08/26/20 11:43 KS [id number]) PT-Bed Mobility Assessment Scooting Scooting to Edge of Bed Standby Assistance PT-Transfer Assessment Sit to and From Stand Sit to and from Stand Standby Assistance,1 Person Assistance,Use of Upper Extremities Equipment Transfer Assistive Device None,Gait Belt Orthotic/Prosthetic Devices or Brace: Yes Transfers Transfer Destination Chair Transfer Technique Pt ambulated w/o AD Transfer Ability Level of Assist Standby Assistance Comments Mobility Comments Pt in chair upon arrival from therapy. SBA for scooting to EOC and sit<>stand w/o AD. Pt then ambulated ~20 ft to w/c in hallway to be taken to stairs for energy conservation SBA. Pt ascended/descended 3 steps w/ R rail and step to pattern SBA w/ no LOB. Pt taken back to room in w/c and ambulated additional 20 ft back to chair SBA. Pt left in chair w/ OT in room. Gait Assessment Gait Gait Assistance Required: Standby Assistance Distance (Feet) 50 Assistive Devices Assistive Device None,Gait Belt Orthotic/Prosthetic Devices or Brace: Yes Gait Deviations General Gait Pattern Antalgic,Decreased Stride Length,Decreased Feet Clearance,Flexed Trunk,Lateral Trunk Lean,Wide Based Gait Factors Limiting Gait Function Factors Limiting Gait Function Decreased Strength,Limited Range of Motion,Pain,Poor Balance Comments Gait Comments Please refer to mobility section for details. Stair Climbing Assessment Evaluation Level of Assist On Stairs Standby Assistance Devices Stair Climbing Assistive Devices Right Railing Technique/Endurance Stair Climbing Direction Ascend and Descend Stair Climbing Technique Step to Step Number of Steps Climbed 3 Stair Climbing Set # Repetitions (reps) 1 Comments Stair Climbing Comments Pt ascended/descended 3 steps w/ R rail and step to pattern SBA. Pt able to hold onto R rail w/ L hand ascending and when descending L hand on L rail. Pt stated she does not need to perform stairs to enter home, only to feed her cats. Pt states she feels safe to complete stairs at home when necessary. PT-Balance Assessment Sitting Balance and Reactions Static Sitting Balance Ability Good Dynamic Sitting Balance Ability Good Standing Balance and Reactions Static Standing Balance Ability Fair Dynamic Standing Balance Ability Fair Device Used none M5 PT-IP Objective Assessments Start: 08/24/20 13:55 Freq: NEEDED Status: Active Protocol: Document 08/24/20 16:19 AW (Rec: 08/24/20 16:50 AW [id number]) Orientation Orientation/Cognition Level of Alertness Alert Orientation Name,Age,Birthday,Month,Date, Year,Day of Week,Place, Situation Language Function Ability No Deficits Noted Safety Awareness Decreased Safety Awareness Gross Range of Motion Upper Extremity ROM Assessment Bilaterally Impaired Lower Extremity ROM Assessment Within Functional Limits Strength Upper Extremity Strength Assessment Bilaterally Impaired Shoulder L 4/5 Elbow L 4+/5 Wrist L 4-/5 Hand L 4-/5 Lower Extremity Strength Assessment Bilaterally Impaired Comments Strength Comments BLE grossly 4/5 Sensation Assessment Sensation Gross Sensation WNL Comments Sensation Comments Pt denies pain, tingling, numbness in bilateral arms. Muscle Tone Muscle Tone WNL Yes M6 PT-IP Treatment Start: 08/24/20 13:55 Freq: NEEDED Status: Active Protocol: Document 08/26/20 10:05 KS (Rec: 08/26/20 11:43 MO [id number]) Physical Therapy Treatment Education Education Provided Precautions,Post-Op Packet, Safety Other Treatments Other Treatment Performed Reviewed UE exercises and safety M7 PT-IP Assessment and Plan Start: 08/24/20 13:55 Freq: NEEDED Status: Active Protocol: Document 08/26/20 10:05 KS (Rec: 08/26/20 11:43 MO [id number]) PT Summary Assessment and Plan Potential Rehabilitation Potential Good Status of Condition at Evaluation Evolving Summary Impairments Pain,ROM,Strength,Balance,Bed Mobility,Transfers,Gait, Activity Tolerance Progress Towards Goals Progressing Toward Goals Assessment Summary Pt is SBA for all bed mobility , transfers, and ambulation as well as stairs. Pt ambulated ~50 ft total and ascended/ descended 3 steps w/ R rail ascending/L rail descending SBA w/ step to pattern. Pt states she feels safe to return home w/ friend supporting her and is scheduled to begin outpatient rehab next week. Goals Bed Mobility Goal Independent Transfer Goal Standby Assistance Gait Goal Standby Assistance Gait Distance 100 Other Goals - up/down 3 steps with right rail ascending with or without SPC Days to Meet Goals 3 Frequency of Treatment Frequency Of Treatment Twice a Day Treatment Plan Physical Therapy Treatment Plan Bed Mobility Training,Transfer Training,Gait Training, Therapeutic Exercise,Balance Retraining,Post Op Education, Discharge Planning,Hot or Cold Pack,Neuromuscular Re-ed Other Recommendations and Next Treatment review precautions and sling Focus management; stairs; assess gait/stairs with SPC Recommendations To Nursing Amount of Assist Needed 1 Person Assist Discharge Recommendations PT Discharge Recommendations Home with Assistance, Outpatient PT Transportation Needs at Discharge Private Vehicle
--- NOTE | 2020-08-26 10:37 | OT.IP.EVAL ---
Current Diagnoses Rheumatoid arthritis with rheumatoid factor, unspecified (08/24/20) Primary osteoarthritis, right shoulder (08/24/20) Surgery Performed Operation Date: 08/24/20 09:45 Actual Procedures p Total Shoulder Arthroplasty - Reverse(Right) - Truman Blevins MD Past Medical History (Last Reviewed 08/26/20 @ 08:47 by Ruby Salinas PA-C) Anxiety Asthma (2019) Breast cancer, left (1982) CHF (congestive heart failure) HTN (hypertension) Pneumonia TIA (transient ischemic attack) Surgical History (Last Reviewed 08/26/20 @ 08:47 by Ruby Salinas PA-C) History of arthroplasty of left knee History of bunionectomy of left great toe History of carpal tunnel release of both wrists History of reduction surgery of right breast History of tonsillectomy History of total right hip arthroplasty Hx of left mastectomy (1983) Hx of removal of cyst (04/29/19) Status post appendectomy Occupational Therapy Inpatient Evaluation/Re-Eval M1 PT/OT-IP Prior Functional Status Start: 08/24/20 13:55 Freq: NEEDED Status: Active Protocol: Document 08/26/20 12:05 CGR (Rec: 08/26/20 12:18 CGR [email or web address]) Medical Review Prior Functional Status Medical History Reviewed Yes Communication WNL. Pt is an effective verbal communicator. Mobility and Gait Pt does not use any assistive device for household mobility. In the community, she ambulates from the car to the grocery store entrance and then uses a motorized cart for shopping. She states her mobility is limited by right knee pain. Activities of Daily Living and IADL's Independent with all I/ADL's Prior Functional Level (Other details) Pt reports at least two falls in the past one year. She is right hand dominant. She has history of ganglion cyst in her left thenar eminence. PMH also includes left breast cancer s/p mastectomy, CHF, and rheumatoid arthritis. Social History Household Members none Living Arrangements Mobile home Number of Floors (Floors) One Floor Number of Stairs To Enter/Railing? Pt has 3 stairs to enter with railing on R from the back of her home but has a ramp on the front. Home Environment High Toilet,Walk in Shower, Built-In Shower Seat Home Equipment Front Wheel Walker,Four Wheel Walker,Straight Cane,Hand Held Shower,Ophthalmic Asst,Sock Aid,Grab Bars Near Toilet,Grab Bars In Shower Employment Status Retired Additional Social History Comment Pts friend Mikhail plans to stay with her for a few days after her sx. M2 OT-IP Current Condition Start: 08/25/20 14:22 Freq: Status: Active Protocol: Document 08/26/20 12:05 CGR (Rec: 08/26/20 12:18 CGR [email or web address]) Occupational Therapy Current Condition Current Condition Evaluation Date 08/26/20 Treatment Diagnosis R reverse total shoulder Diagnosis Onset Date 08/24/20 Post Operative Precautions Shoulder Precautions Sling,Internal Rotation to Body,Forward Flexion to 90 degrees,Pendulums Other Precautions Restrict shld extention M3 OT- IP Subjective and Pain Start: 08/25/20 14:22 Freq: Status: Active Protocol: Document 08/26/20 12:05 CGR (Rec: 08/26/20 12:18 CGR [email or web address]) OT- Subjective Occupational Therapy Visit Type Type Initial Evaluation Visit Start Time 09:08 Visit Stop Time 09:42 Total Visit Minutes 43 Notes 2 part session, second session [id number] OT Pain Assessment Pain When Pain Assessed At Rest Pain Present Pain Present Pain Reported Location Right Shoulder Intensity 4 Scale Used Numeric (0 - 10) Management Techniques Distraction,Modification of Treatment,Re-positioning M4 OT- IP ADL's Start: 08/25/20 14:22 Freq: Status: Active Protocol: Document 08/26/20 12:05 CGR (Rec: 08/26/20 12:18 CGR [email or web address]) OT [id number] General Evaluation Self-Feeding Ability Independent Comments OT Self-Feeding Comments breakfast OT ADL-Grooming General Evaluation Grooming Ability Standby Assistance Areas Needing Assistance Retrieving/Set-up of Grooming Items,Combing/Brushing Hair, Face Washing OT ADL-Oral Care Comments Oral Care Comments Not performed OT ADL-Dressing General Eval Upper Body Dressing Ability Minimal Assistance Lower Body Dressing Ability Minimal Assistance,Maximum Assistance Areas Needing Assistance Retrieving/Set-up of Clothing, Pull-Over Shirt,Pants/Shorts, Socks Comments OT Dressing Comments Pt educated on dressing given R shld sling. Pt able to perform with very little help and states that she will have help for the first few days at home. Pt states and demonstrates understanding of LB dressing, UE dressing, and donning/doffing of the sling. Pt was unable to don socks without max a and unable to use the sock aid given her R arm and states she is ok with using house shoes till she can perform her socks without assist. OT ADL-Toileting General Evaluation Toileting Ability Standby Assistance OT ADL-Bathing Comments OT Bathing Comments Not performed M5 OT- IP IADL's Start: 08/25/20 14:22 Freq: Status: Active Protocol: Document 08/26/20 12:05 CGR (Rec: 08/26/20 12:18 CGR [email or web address]) OT-Instrumental Activities of Daily Living Deficits IADL Deficits Identified No Deficits Home Safety Awareness Awareness of Need for Assistance at Home Good Awareness Ability to Problem Solve Emergency Able to Problem Solve Situations Medication Management Medication Management No Deficits Identified Money Management Money Management No Deficits Identified Meal Preparation Meal Preparation Caregiver Provides Assist Medicaid Plan Compliance Director Medicaid Plan Compliance Director Caregiver Provides Assist Driving Driving Caregiver Provides Assist M6 OT- IP Functional Cognition Start: 08/25/20 14:22 Freq: Status: Active Protocol: Document 08/26/20 12:05 CGR (Rec: 08/26/20 12:18 CGR [email or web address]) Cognitive Factors Limiting Selfcare Function Cognitive Ability Level of Alertness Alert Patient Orientation Name,Age,Birthday,Month,Date, Year,Day of Week,Place, Situation Attention Span Ability Capable of Focused Attention, Capable of Sustained Attention Ability to Follow Commands Able to Follow One Step Commands with Increased Time, Able to Follow One Step Commands with Repetition Memory Description No Deficits Noted Safety Awareness No Deficits Noted Problem Solving Ability No deficits Noted OT- Vision and Hearing OT- Hearing Assessment OT- Hearing Assessment WFL OT- Vision Assessment Visual Acuity Glasses All The Time Visual Attentiveness WFL Occular Pursuits WFL Visual Convergence WFL Vision Assessment Comments Pt wears bifocals M7 OT- IP Mobility and Balance Start: 08/25/20 14:22 Freq: Status: Active Protocol: Document 08/26/20 12:05 CGR (Rec: 08/26/20 12:18 CGR [email or web address]) OT-Transfer Assessment Sit to and From Stand Sit to and from Stand Standby Assistance Transfers Transfer Ability Standby Assistance Technique Transfer Destination Chair,Toilet Transfer Technique Stand Step Pivot Devices Transfer Assistive Devices Gait Belt Comments Mobility Comments Mobility around the room without AD. OT- Balance Assessment Sitting Balance and Reactions Static Sitting Balance Ability Normal Dynamic Sitting Balance Ability Good M8 OT- IP Objective Assessments Start: 08/25/20 14:22 Freq: Status: Active Protocol: Document 08/26/20 12:05 CGR (Rec: 08/26/20 12:18 CGR [email or web address]) OT Gross Range of Motion Upper Extremity Range of Motion Assessment Right Impaired OT Strength Upper Extremity Strength Assessment Right Impaired OT- Coordination Assessment Upper Extremity Finger to Nose Test Right UE Impaired Finger Tapping Test Right UE Impaired OT-Muscle Tone Assessment Muscle Tone WNL Yes OT Sensation Assessment Edema Edema Absent M9 OT- IP Assessment and Plan Start: 08/25/20 14:22 Freq: Status: Active Protocol: Document 08/26/20 12:05 CGR (Rec: 08/26/20 12:18 CGR [email or web address]) OT Summary Assessment and Plan Potential Rehabilitation Potential Excellent Analytic Complexity at Evaluation Low Summary OT Impairments Pain,Range of Motion,Strength, Dressing,Bathing Progress Towards Goals Progressing Toward Goals Assessment Summary Pt presents as a low complexity evaluation s/p admit for R reverse total shoulder arthroplasty. Pt educated on toileting, dressing, and other ADLs. Pt states understanding and is planned for discharge home with a friend for assist. Pt is safe for home discharge. Goals Dressing Goal Independent Toileting Goal Independent Bathing Goal Independent Days to Meet Goals 1 Frequency of Treatment Frequency Of Treatment Once a Day Treatment Plan OT Treatment Plan ADL Training,Patient/Family Education,Discharge Planning Discharge Recommendations OT Discharge Recommendations Home with Assistance Home Equipment Needs None at this time Transportation Needs at Discharge Private Vehicle
--- NOTE | 2020-08-26 12:42 | PC.NURSE ---
Discharge: Pt feels ready to d/c home. Seen by OT/PT and given their final instructions. Seen by KLAUDIA Kim and given d/c instructions. Pt has no nausea today and has been able to tolerate diet. No use of pain meds, however pt reports the block is wearing off and she can feel her shoulder now. Enc pt when she goes home the block will wear off more and more and she should consider taking something sooner rather than later even if it is tylenol. Reviewed d/c packet and rx scripts given. Questions answered. Pt d/c home via auto w/a friend.
== END 2020-08-26 12:30 | disposition home or self-care (01) | DRG 483 ==
PROVIDERS: Admitting Provider Orthopaedic Surgery; PCP Physician Assistant Medical; Referring Provider Physician Assistant Medical; Visit Provider Orthopaedic Surgery
PROC: 0RRJ00Z Replacement of Right Shoulder Joint with Reverse Ball and Socket Synthetic Substitute, Open Approach (ICD-10-PCS; CPT 23472; principal; 2020-08-24 09:45)
DX: M12.811 Other specific arthropathies, not elsewhere classified, right shoulder (principal); I11.0 Hypertensive heart disease with heart failure; I50.9 Heart failure, unspecified; F41.9 Anxiety disorder, unspecified; M65.811 Other synovitis and tenosynovitis, right shoulder; M05.9 Rheumatoid arthritis with rheumatoid factor, unspecified; E03.9 Hypothyroidism, unspecified; J45.909 Unspecified asthma, uncomplicated; R11.2 Nausea with vomiting, unspecified; Z87.891 Personal history of nicotine dependence; Z85.3 Personal history of malignant neoplasm of breast; Z86.73 Personal history of transient ischemic attack (TIA), and cerebral infarction without residual deficits; Z11.59 Encounter for screening for other viral diseases
CPT/HCPCS: 36415; 64450; 85027; 87635; 94640; 94760; 97110; 97116; 97162; 97165; 97530; 97535; C1776; A9270; J0330; J1100; J2060; J2250; J2405; J2704; J2765; J3010

== ENCOUNTER → 2020-11-20 14:26 | Outpatient (CLI) | payer MEDICARE, OTHER, SELFPAY ==
[2020-08-24 14:27] VITALS: BMI 23.2
[2020-11-20 17:07] LABS: COVID19 -Nasal RAPID Negative (Negative)
== END ==
PROVIDERS: PCP Physician Assistant Medical; Visit Provider Nurse Practitioner
DX: Z01.812 Encounter for preprocedural laboratory examination (principal); Z20.822 Contact with and (suspected) exposure to COVID-19
CPT/HCPCS: 87635

== ENCOUNTER 2020-11-23 08:24 | Inpatient (IN) | payer MEDICARE, OTHER, SELFPAY ==
[2020-08-24 14:27] VITALS: BMI 23.2
[2020-11-23] VITALS (15 sets, daily range): BP systolic 112–140; BP diastolic 50–86; PULSE 60–77; RESP 10–21; TEMP 36.1–37.1; O2SAT 92–98; BMI 21.6
--- NOTE | 2020-11-23 | DI.RAD.S_ITS ---
PROCEDURE: XR SHOULDER RT MIN 2V INDICATIONS: POST OP RIGHT SHOULDER TECHNIQUE: 2 views of the shoulder were acquired. COMPARISON: [facility], XR SHOULDER MIN 2VW RT, 04/23/2017, 15:40. FINDINGS: Bones: Postsurgical changes are seen from shoulder arthroplasty with hardware components in expected positions. There is postsurgical widening of the acromioclavicular joint. Dextroconvex curvature is noted in the included portions of the spine. Soft tissues: Postsurgical changes are seen in the soft tissues overlying the shoulder. IMPRESSION: Status post right shoulder arthroplasty with expected postoperative findings. Dictated by: Cole Patel M.D. on 11/23/2020 at 14:18 Approved by: Cole Patel M.D. on 11/23/2020 at 14:21
--- NOTE | 2020-11-23 | PATH_ITS ---
[facility] Accession Number: [id number] . 01 Material submitted: . shoulder - RIGHT SHOULDER TISSUE . 01 Clinical history: . INPT . 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 Note: The findings are not entirely specific. Crystal deposition disease is not definitively identified in sections examined. Please note, evaluation of fresh material is the most sensitive test for crystalline arthropathies. Clinical and radiographic correlation is recommended. MRV 12/01/2020 1054 Local . 01 Comment: This case has been reviewed by Dr. Francisca Chan. . 01 Electronically signed: . eYmi Mancia MD, Dermatopathologist NPI- [id number] . 01 Gross description: . Received in formalin, labeled right shoulder tissue, are two pieces bah, friable tissue measuring 2.0 x 1.5 x 0.5 cm to 0.7 x 0.4 x 0.2 cm. The first piece is inked, serially sectioned into six slices, and entirely submitted in cassettes A1 and A2, with three slices per cassette. The tissue may further fragment during processing. The second piece is inked, trisected, and entirely submitted in cassette A3. The tissue may further fragment during processing. ([id number]) /FRR 11/28/2020 0228 Local . 01 Pathologist provided ICD-10: M12.9 . 01 CPT . 220221 Performed at: [address] [facility], [place], [place] [id number] MD Mp Dean MD Phone: [phone]
[2020-11-23] MEDS: LACTATED RINGERS 1,000 ML 42 ML IV ×2 (09:33→11:56)
--- NOTE | 2020-11-23 09:43 | PM.PREOP ---
Pre-operative Note COVID-19 COVID-19 status: Negative Result date/Date tested (Pos, Neg/Pending): 11/21/20 Interval Note History & Physical reviewed/Exam performed by Physician: Yes Changes to H&P: No
[2020-11-23] MEDS: VANCOMYCIN 1,000 MG/200 ML PIGGYBACK 200 MG IV ×2 (09:47→22:09)
[2020-11-23] MEDS: APREPITANT 40 MG CAPSULE PO (10:25)
[2020-11-23] MEDS: SCOPOLAMINE 1 PATCH TOP (10:25)
--- NOTE | 2020-11-23 10:34 | SUR.PREOP ---
Block start time [0956] . Monitoring initiated and maintained throughout procedure. Oxygen and medications given per anesthesiologist instructions. Patient remained stable throughout procedure, no adverse reactions noted. Block end time [1010].
[2020-11-23] MEDS: GENTAMICIN 200 MG in SODIUM CHLORIDE 0.9% 100 ML 105 ML IV (10:52)
[2020-11-23] MEDS: LIDOCAINE 1% W/EPI 20 ML INJ (11:21)
--- NOTE | 2020-11-23 12:13 | P.OP_ITS ---
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 Patient had loosening of the glenosphere and base plate. No broken screws. The glenoid component were still attached to the glenoid but had loosened and the glenosphere was rotated superiorly. Closure Type: primary Specimen(s): other (Tissue sent for pathology as well as microbiology) Estimated Blood Loss (mL): 20 Blood products transfused: none Procedure in detail: On date of service, Patient was met in the holding area. The operative site was signed and witnessed by the OR staff. The surgeries once again discussed with the patient and any remaining questions they had were answered fully. Patient was taken back to the operating theater and placed on the operating table in a supine position. Great care was taken to ensure that all bony prominences were properly padded. Patient was then placed into the beach chair position. The head and neck were properly positioned and secured. A timeout was performed verifying patient's name, procedure, and the operative site. The upper extremity was then prepped and draped in the normal sterile fashion. Previously, the bony anatomy and incision were marked out as well as injected with Marcaine with epinephrine. The previous incision was used. Ten blade was used to incise through skin and fascial tissue. Patient had nonabsorbable sutures that were used to close the deltopectoral interval and those were easily identified. This allowed us to reopen the deltopectoral interval giving us good exposure to the proximal humerus. The humerus was displaced superiorly and anteriorly. We were able to dissect the tissue off the humerus giving us good visualization of the humeral component. Using an osteotome we were able to remove the poly cup from the humeral component. The rest of the humeral component was left and did not need to be removed. Next we turned our attention to the glenoid. The humerus was retracted using a posterior glenoid retractor giving us good visualization of the glenoid. The screw in the glenosphere was removed in 1 piece and then we were able to screw in a impactor guide and then removed the glenosphere without any difficulty or damage to the base plate or glenoid. The glenosphere and base plate before removal was loose and had been displaced and angulated superiorly. No sign of any bending or breaking of any of the screws. Next, the screws in the base plates were removed and they came out all in 1 piece. Once the screws were out we were able to remove the base plate without any difficulty. Patient had central hole from where the PEG from the base plate was located. This was then debrided and irrigated and then packed with bony allograft to fill up the central hole. This was tamped down with the tamp to compress the allograft until that whole area was filled with allograft bone chips. Next we turned our attention back to the humerus. We trialed various sizes of a CTA head and the 47 mm provided the best fit and stability. So at this point a CTA head was impacted onto the humeral component shoulder was reduced taken through range of motion was felt to be rather stable with a CTA head. The wound was copiously irrigated and the wounds closed in a layered fashion with 2. Ethibond followed by 3-0 Vicryl and 4-0 Monocryl. The shoulder was cleaned, dried, and dressed and patient was taken to the PACU in stable condition. Patient being in the sling for the next 4-6 weeks. Initially we will do is have her work on pendulum motions to the shoulder. Active and passive range of motion to the elbow is allowed as well. No extension of the shoulder joint in order to protect the anterior structures. Complications: none Post-operative Disposition: Acute Care Plan for aftercare: Due to patient's multiple medical issues and fragile state patient will need to go to SNF after surgery. Patient at this point is unsafe to be discharged home after surgery. Due to Medicare rules patient will be admitted and kept for 72 hours before being transferred to a fpc facility. Patient is scheduled to go to [facility].
--- NOTE | 2020-11-23 15:50 | PT.IIE ---
Current Diagnoses Rheumatoid arthritis with rheumatoid factor, unspecified (11/23/20) Primary osteoarthritis, right shoulder (11/23/20) Surgery Performed Operation Date: 11/23/20 09:45 Actual Procedures p Removal of reverse total shoulder arthroplasty w/replacement w/total shoulder w/cuff tear arthropathy head(Right) - Truman Blevins MD Surgical History (Last Updated 11/08/20 @ 13:16 by Florencia Flynn, RN) History of arthroplasty of left knee History of bunionectomy of left great toe History of carpal tunnel release of both wrists History of reduction surgery of right breast History of tonsillectomy History of total right hip arthroplasty Hx of left mastectomy (1983) Hx of removal of cyst (04/29/19) Status post appendectomy Status post total shoulder arthroplasty Medical History (Last Updated 11/08/20 @ 13:40 by Florencia Flynn, SANDEEP) Anxiety Asthma (2019) Breast cancer, left (1982) CHF (congestive heart failure) History of left breast cancer HTN (hypertension) Pneumonia Primary osteoarthritis, right shoulder Rheumatoid arthritis with rheumatoid factor TIA (transient ischemic attack) Physical Therapy Inpatient Evaluation/Re-Eval M1 PT/OT-IP Prior Functional Status Start: 11/23/20 15:17 Freq: NEEDED Status: Active Protocol: Document 11/23/20 15:50 AW (Rec: 11/23/20 16:54 AW [id number]) Medical Review Prior Functional Status Medical History Reviewed Yes Communication WNL. Pt is an effective verbal communicator. Mobility and Gait Pt uses no assistive device for household mobility. In the community, she is able to walk parking lot distances and then uses a motorized cart for shopping. Her mobility is limited by hip and knee pain - right worse than left. Pt reports two falls in the past year but she states she has not fallen since surgery in August. Activities of Daily Living and IADL's Independent with all I/ADL's. Prior Functional Level (Other details) Pt had right reverse TSA on . She had assist from a friend staying with her for two weeks following that surgery and she was attending outpatient PT. As her components failed, she discharged from PT and began to plan for surgical revision. Pt is RHD. She has history of ganglion cyst on her left thenar eminence. PMH also includes left breast cancer s/ p mastectomy, CHF, and rheumatoid arthritis. Social History Household Members none Living Arrangements Mobile home Number of Floors (Floors) One Floor Number of Stairs To Enter/Railing? Ramped entry at the front of the house. Home Environment High Toilet,Walk in Shower, Built-In Shower Seat,Ramp Home Equipment Front Wheel Walker,Four Wheel Walker,Bedside Commode,Hand Held Shower,Bung Sewer,Grab Bars Near Toilet,Grab Bars In Shower Additional Social History Comment Pt has a tripod cane and an adjustable bed at home. She lives alone in [place]. M2 PT-IP Current Condition Start: 11/23/20 15:17 Freq: NEEDED Status: Active Protocol: Document 11/23/20 15:50 AW (Rec: 11/23/20 16:54 AW [id number]) Physical Therapy Current Condition Current Condition Evaluation Date 11/23/20 Treatment Diagnosis revision R TSA; dec indep with ADL's; difficulty in walking Onset Date 11/23/20 Precautions Shoulder Precautions Sling,PROM,Pendulums Other Precautions Per op note: Patient being in the sling for the next 4-6 weeks. Initially we will do is have her work on pendulum motions to the shoulder. Active and passive range of motion to the elbow is allowed as well. No extension of the shoulder joint in order to protect the anterior structures. Weight Bearing Status Weight Bearing Status Non-Weight Bearing Allowed Weight Bearing Amount (enter % NWB RUE or #) (%) M3 PT-IP Subjective Start: 11/23/20 15:17 Freq: NEEDED Status: Active Protocol: Document 11/23/20 15:50 AW (Rec: 11/23/20 16:54 AW [id number]) Subjective Physical Therapy Visit Type Type Initial Evaluation Visit Start Time 15:32 Visit Stop Time 15:50 Total Visit Minutes 18 Physical Therapy Visit Comments Patient Comments Pt would like to use the BS. Therapy Pain Assessment Pain When Pain Assessed During Mobility Pain Present Pain Present Denied Pain M4 PT-IP Mobility and Gait Start: 11/23/20 15:17 Freq: NEEDED Status: Active Protocol: Document 11/23/20 15:50 AW (Rec: 11/23/20 16:54 AW [id number]) PT-Bed Mobility Assessment Supine to Sit Supine to Sit Contact Guard Assistance,1 Person Assistance,Head of Bed Elevated Sit to Supine Sit to Supine Contact Guard Assistance Scooting Scooting to Edge of Bed Contact Guard Assistance PT-Transfer Assessment Sit to and From Stand Sit to and from Stand Contact Guard Assistance Equipment Transfer Assistive Device None,Gait Belt Orthotic/Prosthetic Devices or Brace: Yes Transfers Transfer Destination Bed,Bedside Commode Transfer Technique Stand Step Pivot Transfer Ability Level of Assist Contact Guard Assistance, Minimal Assistance,1 Person Assistance,Use of Upper Extremities Comments Mobility Comments Pt was reclined in the bed as PT arrived. With HOB elevated (pt has an adjustable bed at home), she completed supine to sit CGA and cues for awareness of her RUE. As she sat EOB, PT assisted to properly fit and adjust her sling. She stood from the bed in lowest position as PT provided CGA due to unsteadiness in initial standing. She recovered and transferred to the [facility] CGA. After voiding, she was able to complete pericare without assist. She stood from the commode and managed her briefs min assist. With markedly unsteady gait, she walked to the sink to wash her hands, requiring CGA for balance. Pt then returned to bed, transferring back to supine CGA. She was positioned with call light and all needs in reach with pillow to support her RUE and under her knees. Gait Assessment Gait Gait Assistance Required: Contact Guard Assist Distance (Feet) 10 Able to Maintain Weight Bearing Status Yes During Gait Assistive Devices Assistive Device None,Gait Belt Orthotic/Prosthetic Devices or Brace: No Gait Deviations General Gait Pattern Antalgic,Decreased Stride Length,Decreased Feet Clearance,Flexed Trunk,Lateral Trunk Lean,Step-to Gait Factors Limiting Gait Function Factors Limiting Gait Function Decreased Activity Tolerance, Decreased Strength,Limited Range of Motion,Pain,Poor Balance,Poor Safety Awareness Comments Gait Comments Unsteady gait was characterized by decreased right knee extension and significant lateral lean in ipsilateral stance phase. Stair Climbing Assessment Comments Stair Climbing Comments Not assessed. PT-Balance Assessment Sitting Balance and Reactions Static Sitting Balance Ability Good Dynamic Sitting Balance Ability Fair Standing Balance and Reactions Static Standing Balance Ability Poor Dynamic Standing Balance Ability Poor Device Used no AD M5 PT-IP Objective Assessments Start: 11/23/20 15:17 Freq: NEEDED Status: Active Protocol: Document 11/23/20 15:50 AW (Rec: 11/23/20 16:54 AW [id number]) Orientation Orientation/Cognition Level of Alertness Alert Orientation Name,Day of Week,Place, Situation Language Function Ability No Deficits Noted Safety Awareness Decreased Safety Awareness Gross Range of Motion Upper Extremity ROM Assessment Right Impaired Lower Extremity ROM Assessment Within Functional Limits Strength Upper Extremity Strength Assessment Bilaterally Impaired Shoulder L 4/5 Elbow L 4+/5 Lower Extremity Strength Assessment Bilaterally Impaired Hip 4-/5 Knee 4-/5 Ankle 4+/5 Comments Strength Comments RUE not assessed. Sensation Assessment Sensation Gross Sensation Right UE Impaired Light Touch Impaired Sensation Description Numbness Muscle Tone Muscle Tone WNL Yes M6 PT-IP Treatment Start: 11/23/20 15:17 Freq: NEEDED Status: Active Protocol: Document 11/23/20 15:50 AW (Rec: 11/23/20 16:54 AW [id number]) Physical Therapy Treatment Education Education Provided Precautions,Weight Bearing Status,Safety Brace Education [place],Pelican,Patient Other Treatments Other Treatment Performed Provided education on role of PT, plan of care, and weightbearing status. M7 PT-IP Assessment and Plan Start: 11/23/20 15:17 Freq: NEEDED Status: Active Protocol: Document 11/23/20 15:50 AW (Rec: 11/23/20 16:54 AW [id number]) PT Summary Assessment and Plan Potential Rehabilitation Potential Good Status of Condition at Evaluation Evolving Summary Impairments Pain,ROM,Strength,Balance,Bed Mobility,Transfers,Gait Assessment Summary Alize is a right hand dominant 80 yo woman seen for PT evaluation on POD0 following revision of right TSA. She had her original surgery on . Pt does not use an assistive device at baseline but has limited mobility due to hip and knee pain. She reports two falls in the past one year. On evaluation, pt required CGA to min assist for limited mobility in her room due to poor balance and unsteady gait. Pt lives alone and has no assist after surgery. She will require SNF rehab vs home with assist and home health therapy at discharge. Pt states she prefers to go to SNF. PT will continue to assess and refine discharge recommendation. Goals Bed Mobility Goal Independent Transfer Goal Independent Gait Goal Independent Gait Distance 150 Frequency of Treatment Frequency Of Treatment Twice a Day Treatment Plan Physical Therapy Treatment Plan Bed Mobility Training,Transfer Training,Gait Training, Therapeutic Exercise,Balance Retraining,Post Op Education, Discharge Planning,Hot or Cold Pack Other Recommendations and Next Treatment review precautins; perform Focus PROM elbow; mobility as tolerated Precautions Shoulder Precautions Sling,PROM,Pendulums Other Precautions Per op note: Patient being in the sling for the next 4-6 weeks. Initially we will do is have her work on pendulum motions to the shoulder. Active and passive range of motion to the elbow is allowed as well. No extension of the shoulder joint in order to protect the anterior structures. Recommendations To Nursing Amount of Assist Needed 1 Person Assist Discharge Recommendations PT Discharge Recommendations Home with Assistance,Home Health,SNF Rehab Transportation Needs at Discharge Private Vehicle,Wheelchair/ Cabulance
--- NOTE | 2020-11-23 16:26 | CM.DPNOTE ---
Addendum entered by WILBERTO Post 11/24/20 16:07: February, [facility] asks if patient's home med Librax will be brought in by sister? SNF cannot provide ...and if patient's infusion (every 4 weeks) will continue? Patient cannot receive this infusion ([place] sp?) while admitted to [facility] H+R. Met w/patient this afternoon, introduced role and reviewed DCP. Patient is POD#1 from her shoulder surgery and planning on discharging to [facility] Friday. 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 Patient appreciative and planning to transport via [facility]'s facility van on Friday SUKHDEEP Original Note: Provided referral to [facility] at [facility] SNF per patient's request. Patient POD 0 from shoulder surgery w/ Dr Blevins and inpatient status as of today; expected to DC to [facility] H+R 3.7.21. Need acceptance and PASRR SUKHDEEP
[2020-11-23] MEDS: MAGNESIUM HYDROXIDE 30 ML UDC PO (20:33)
[2020-11-23] MEDS: AMITRIPTYLINE 10 MG TABLET PO (20:33)
[2020-11-23] MEDS: carvediloL 12.5 MG TABLET PO (20:34)
[2020-11-23] MEDS: DOCUSATE 100 MG CAPSULE PO (20:34)
[2020-11-23] MEDS: LOSARTAN 50 MG TABLET PO (20:34)
[2020-11-23] MEDS: SODIUM CHLORIDE 0.9% FLUSH 10 ML IV ×2 (20:36→22:10)
[2020-11-23] MEDS: ACETAMINOPHEN 325 MG TABLET 975 MG PO (20:37)
--- NOTE | 2020-11-23 23:09 | PC.NURSE ---
Assumed care of pt at 1500. Pt resting in bed during bedside hand-off report. Orientedx4. R. arm in sling. Aquacel C/D/I. Arm numb r/t surgical block. Radial pulse palpable. Denies pain. Bed alarm on. Pt verbalized she will call for needs. Pt up to BSC to void a few times this shift. Steady on feet, gait belt used for transfer. Tolerating diet. Denies nausea. Reports numbness is subsiding, now able to wiggle fingers. Medicating with Tylenol and ice pack applied for 3/10 post-op shoulder pain. Refused SCD's at approx 1800. VTE risks advised. Cooperative and pleasant with care this shift.
[2020-11-24] VITALS (9 sets, daily range): BP systolic 113–156; BP diastolic 54–92; PULSE 50–61; RESP 18–20; TEMP 36.4–37; O2SAT 94–98
--- NOTE | 2020-11-24 00:41 | PC.NURSE ---
2336: patient is alert and oriented. Breath sounds CTA with RA sat of 92%. HRR. Denies nausea. BT present and states she is passing flatus. Voiding on BSC; denies dysuria, frequency or urgency. Is able to move self in bed but due to weakness/unsteadiness is assisted to BSC. Aquacel dressing to right shoulder is CDI. Right UE is in sling with good CMS. States pain is tolerable at 2/10 and declines pain medication but ice applied. Refusing SCD's at night due to being unable to sleep with them on; reminded to ankle wave and patient demonstrates understanding. Reports having fallen a couple months ago so fall risk score is high and bed alarm is activated.
[2020-11-24] MEDS: ACETAMINOPHEN 325 MG TABLET 975 MG PO ×3 (03:58→23:28)
[2020-11-24] MEDS: LEVOTHYROXINE 50 MCG TABLET PO (05:56)
[2020-11-24 06:03] LABS: Hemoglobin 10.8 g/dL (12.0-16.0); Mean Corpuscular HGB Conc 32.9 % (30-36); Mean Corpuscular Hemoglobin 29.1 PG (26-34); Mean Corpuscular Volume 88.6 fL (80-100); Platelet Count 286 X10^3/uL (150-400); Red Blood Cell Count 3.72 X10^6/uL (4.0-5.2); White Blood Cell Count 11.2 X10^3/uL (4.5-11.0)
--- NOTE | 2020-11-24 07:33 | PM.PNPO.1 ---
Subjective Subjective Date Patient Seen: 11/24/20 Time Patient Seen: 07:33 Interval history: POD #1 s/p removal of previous reverse total shoulder components and replacement with a CTA head with bone grafting of the glenoid with Dr. Blevins. Her pain is well controlled this Am with Tylenol. The block has worn off. She has been keeping her nausea under control. Exam Vital Signs (past 8 hours): - 11/23/20 23:56 11/24/20 04:13 11/24/20 04:44 Temperature 97.3 F L 97.6 F Pulse Rate 60 50 L Respiratory Rate 16 18 Blood Pressure 112/50 L 141/62 H Pulse Oximetry 92 98 Oxygen Delivery Method Room Air Oxygen Flow Rate 0 Narrative Exam Narrative: Sitting up in bed no acute distress. Alert orient x3. Calves are soft, compressible, nontender bilaterally. Right anterior shoulder dressing CDI. Wildlife Protector strength strong equal. Radial pulses symmetrical. Full sensation throughout right upper extremity. Objective Labs Result Diagrams: 11/24/20 05:35 Labs: Laboratory Results - last 24 hr 11/24/20 05:35 WBC 11.2 H RBC 3.72 L Hgb 10.8 L Hct 33.0 L MCV 88.6 MCH 29.1 MCHC 32.9 RDW 18.0 H Plt Count 286 PFSH Medical History Anxiety Asthma (2019) Breast cancer, left (1982) CHF (congestive heart failure) History of left breast cancer HTN (hypertension) Pneumonia Primary osteoarthritis, right shoulder Rheumatoid arthritis with rheumatoid factor TIA (transient ischemic attack) Surgical History History of arthroplasty of left knee History of bunionectomy of left great toe History of carpal tunnel release of both wrists History of reduction surgery of right breast History of tonsillectomy History of total right hip arthroplasty Hx of left mastectomy (1983) Hx of removal of cyst (04/29/19) Status post appendectomy Status post total shoulder arthroplasty Social History household members: none Smoking Status: Former smoker alcohol intake: former Assessment & Plan Post-op Postoperative Procedures: Procedures Operation Date: 11/23/20 09:45 Actual Procedures Side Surgeon p 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 Follow Dr. Blevins TSA protocol. Continue current pain control. If she develops pain today she could try the [place] or Oxycodone. Previous issue with [place] was vomiting but this is likely with narcotics in general. Will start ASA 81 mg BID for VTE prophylaxis. Patient will require SNF for continued care after surgery.
--- NOTE | 2020-11-24 08:58 | PT.IPTN ---
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 Initially we will do is have her work on pendulum motions to the shoulder. Active and passive range of motion to the elbow is allowed as well. No extension of the shoulder joint in order to protect the anterior structures. Weight Bearing Status Weight Bearing Status Non-Weight Bearing Allowed Weight Bearing Amount (enter % NWB RUE or #) (%) M3 PT-IP Subjective Start: 11/23/20 15:17 Freq: NEEDED Status: Active Protocol: Document 11/24/20 08:50 HH (Rec: 11/24/20 08:58 HH [email or web address]) Subjective Physical Therapy Visit Type Type Treatment Note Visit Start Time 08:30 Visit Stop Time 08:42 Total Visit Minutes 12 Number of ENTERPRISE RESOURCE PLANNER Visits 0 Physical Therapy Visit Comments Patient Comments pt requested to transfer to bedside chair to have breakfast.She statedI feel so much better today. Therapy Pain Assessment Pain When Pain Assessed During Mobility Pain Present Pain Present Denied Pain M4 PT-IP Mobility and Gait Start: 11/23/20 15:17 Freq: NEEDED Status: Active Protocol: Document 11/24/20 08:50 HH (Rec: 11/24/20 08:58 HH [id number]) PT-Bed Mobility Assessment Supine to Sit Supine to Sit Standby Assistance,1 Person Assistance,Head of Bed Elevated Scooting Scooting to Edge of Bed Contact Guard Assistance PT-Transfer Assessment Sit to and From Stand Sit to and from Stand Contact Guard Assistance Equipment Transfer Assistive Device None,Gait Belt Orthotic/Prosthetic Devices or Brace: Yes Transfers Transfer Destination Bed,Chair Transfer Technique Stand Step Pivot Transfer Ability Level of Assist Contact Guard Assistance, Minimal Assistance,1 Person Assistance,Use of Upper Extremities Comments Mobility Comments Pt was reclined in bed with HOB upon PT arrival. She requested to sit in chair to have breakfast. Bed was flattended initially and she was able to complete supine to long sit followed by pivoting to R side EOB slowly with L UE pulled on bedrail. She then stood up with CGA. Pt was unsteady and needed to take small steps to find balance. Pt then walked with PT CGA around the room without AD. She has signifciant trendelenburg sign on L LE and only able to take small steps with WBOS. Pt was overall somewhat unsteady. Pt then c/o fatigue and requested to sit down. She was able to descend properly with L UE on armrest. Pt sat in chair comfortably, call light and ice pack provided. Gait Assessment Gait Gait Assistance Required: Contact Guard Assist Distance (Feet) 20 Able to Maintain Weight Bearing Status Yes During Gait Assistive Devices Assistive Device None,Gait Belt Orthotic/Prosthetic Devices or Brace: No Gait Deviations General Gait Pattern Antalgic,Decreased Stride Length,Decreased Feet Clearance,Flexed Trunk,Lateral Trunk Lean,Step-to Gait Factors Limiting Gait Function Factors Limiting Gait Function Decreased Activity Tolerance, Decreased Strength,Limited Range of Motion,Pain,Poor Balance,Poor Safety Awareness Comments Gait Comments Unsteady gait was characterized by decreased right knee extension and significant lateral lean in ipsilateral stance phase. Stair Climbing Assessment Comments Stair Climbing Comments Not assessed. PT-Balance Assessment Sitting Balance and Reactions Static Sitting Balance Ability Good Dynamic Sitting Balance Ability Fair Standing Balance and Reactions Static Standing Balance Ability Poor Dynamic Standing Balance Ability Poor Device Used no AD M5 PT-IP Objective Assessments Start: 11/23/20 15:17 Freq: NEEDED Status: Active Protocol: Document 11/23/20 15:50 AW (Rec: 11/23/20 16:54 AW [id number]) Orientation Orientation/Cognition Level of Alertness Alert Orientation Name,Day of Week,Place, Situation Language Function Ability No Deficits Noted Safety Awareness Decreased Safety Awareness Gross Range of Motion Upper Extremity ROM Assessment Right Impaired Lower Extremity ROM Assessment Within Functional Limits Strength Upper Extremity Strength Assessment Bilaterally Impaired Shoulder L 4/5 Elbow L 4+/5 Lower Extremity Strength Assessment Bilaterally Impaired Hip 4-/5 Knee 4-/5 Ankle 4+/5 Comments Strength Comments RUE not assessed. Sensation Assessment Sensation Gross Sensation Right UE Impaired Light Touch Impaired Sensation Description Numbness Muscle Tone Muscle Tone WNL Yes M6 PT-IP Treatment Start: 11/23/20 15:17 Freq: NEEDED Status: Active Protocol: Document 11/23/20 15:50 AW (Rec: 11/23/20 16:54 AW [id number]) Physical Therapy Treatment Education Education Provided Precautions,Weight Bearing Status,Safety Brace Education [place],Patient Other Treatments Other Treatment Performed Provided education on role of PT, plan of care, and weightbearing status. M7 PT-IP Assessment and Plan Start: 11/23/20 15:17 Freq: NEEDED Status: Active Protocol: Document 11/24/20 08:50 HH (Rec: 11/24/20 08:58 HH [email or web address]) PT Summary Assessment and Plan Potential Rehabilitation Potential Good Status of Condition at Evaluation Evolving Summary Impairments Pain,ROM,Strength,Balance,Bed Mobility,Transfers,Gait Assessment Summary Pt stated she feels better today but her gait cont to be unsteady and fatigue quickly. pt may benefit using a SPC for amb to improve her balance. Will attempt next visit. Pt lives alone and has no assist after surgery. She will require SNF rehab vs home with assist and home health therapy at discharge. Pt states she prefers to go to SNF. PT will continue to assess and refine discharge recommendation. Goals Bed Mobility Goal Independent Transfer Goal Independent Gait Goal Independent Gait Distance 150 Frequency of Treatment Frequency Of Treatment Twice a Day Treatment Plan Physical Therapy Treatment Plan Bed Mobility Training,Transfer Training,Gait Training, Therapeutic Exercise,Balance Retraining,Post Op Education, Discharge Planning,Hot or Cold Pack Other Recommendations and Next Treatment review precautins; perform Focus PROM elbow; mobility as tolerated Precautions Shoulder Precautions Sling,PROM,Pendulums Other Precautions Per op note: Patient being in the sling for the next 4-6 weeks. Initially we will do is have her work on pendulum motions to the shoulder. Active and passive range of motion to the elbow is allowed as well. No extension of the shoulder joint in order to protect the anterior structures. Recommendations To Nursing Amount of Assist Needed 1 Person Assist Discharge Recommendations PT Discharge Recommendations Home with Assistance,Home Health,SNF Rehab Transportation Needs at Discharge Private Vehicle,Wheelchair/ Cabulance
[2020-11-24] MEDS: LOSARTAN 50 MG TABLET PO ×2 (09:06→20:59)
[2020-11-24] MEDS: HYDROXYCHLOROQUINE 200 MG TABLET PO (09:06)
[2020-11-24] MEDS: FUROSEMIDE 20 MG TABLET PO (09:07)
[2020-11-24] MEDS: SPIRONOLACTONE 25 MG TABLET PO (09:07)
[2020-11-24] MEDS: OXYCODONE IR 5 MG TABLET PO (09:07)
[2020-11-24] MEDS: carvediloL 12.5 MG TABLET PO ×2 (09:07→20:58)
[2020-11-24] MEDS: ASPIRIN EC 81 MG TABLET PO ×2 (09:07→20:59)
[2020-11-24] MEDS: POTASSIUM CHLORIDE 10 MEQ TAB PO (09:07)
[2020-11-24] MEDS: DOCUSATE 100 MG CAPSULE PO ×2 (09:07→20:58)
[2020-11-24] MEDS: predniSONE 5 MG TABLET PO (09:08)
[2020-11-24] MEDS: SODIUM CHLORIDE 0.9% FLUSH 10 ML IV ×2 (09:09→21:01)
--- NOTE | 2020-11-24 15:21 | PT.IPTN ---
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 Initially we will do is have her work on pendulum motions to the shoulder. Active and passive range of motion to the elbow is allowed as well. No extension of the shoulder joint in order to protect the anterior structures. Weight Bearing Status Weight Bearing Status Non-Weight Bearing Allowed Weight Bearing Amount (enter % NWB RUE or #) (%) M3 PT-IP Subjective Start: 11/23/20 15:17 Freq: NEEDED Status: Active Protocol: Document 11/24/20 15:14 HH (Rec: 11/24/20 15:21 HH [id number]) Subjective Physical Therapy Visit Type Type Treatment Note Visit Start Time 13:35 Visit Stop Time 13:49 Total Visit Minutes 14 Number of CORPORATE GENERAL MANAGER Visits 0 Physical Therapy Visit Comments Patient Comments IM ready to move again! Therapy Pain Assessment Pain When Pain Assessed During Mobility Pain Present Pain Present Denied Pain M4 PT-IP Mobility and Gait Start: 11/23/20 15:17 Freq: NEEDED Status: Active Protocol: Document 11/24/20 15:14 HH (Rec: 11/24/20 15:21 HH [id number]) PT-Bed Mobility Assessment Supine to Sit Supine to Sit Standby Assistance,1 Person Assistance,Head of Bed Elevated Scooting Scooting to Edge of Bed Standby Assistance PT-Transfer Assessment Sit to and From Stand Sit to and from Stand Contact Guard Assistance Equipment Transfer Assistive Device None,Gait Belt Orthotic/Prosthetic Devices or Brace: Yes Transfers Transfer Destination Bed,Chair Transfer Technique Stand Step Pivot Transfer Ability Level of Assist Contact Guard Assistance, Minimal Assistance,1 Person Assistance,Use of Upper Extremities Comments Mobility Comments Pt was in bed upon PT arrival. She then got up from supine to long sit and pivoted to R EOB with SBA. She stood up with CGA and began gait training trial with SPC. Pt initially walked within the room with SPC on her LUE but she was very unsteady and LOB x 1 and needed assistance to recover. Pt then walked to hallway without SPC and she completed 60 ft with an antalgic gait. Pt occasionally uses wall for support d/t unsteadiness but she did not LOB. She then returned to her bedside chair slowly. Call light placed within reach Gait Assessment Gait Gait Assistance Required: Contact Guard Assist Distance (Feet) 120 Able to Maintain Weight Bearing Status Yes During Gait Assistive Devices Assistive Device None,Gait Belt Orthotic/Prosthetic Devices or Brace: No Gait Deviations General Gait Pattern Antalgic,Decreased Stride Length,Decreased Feet Clearance,Flexed Trunk,Lateral Trunk Lean,Step-to Gait Factors Limiting Gait Function Factors Limiting Gait Function Decreased Activity Tolerance, Decreased Strength,Limited Range of Motion,Pain,Poor Balance,Poor Safety Awareness Comments Gait Comments Unsteady gait was characterized by decreased right knee extension and significant lateral lean in ipsilateral stance phase. Stair Climbing Assessment Comments Stair Climbing Comments Not assessed. PT-Balance Assessment Sitting Balance and Reactions Static Sitting Balance Ability Good Dynamic Sitting Balance Ability Fair Standing Balance and Reactions Static Standing Balance Ability Fair Dynamic Standing Balance Ability Poor Device Used no AD M5 PT-IP Objective Assessments Start: 11/23/20 15:17 Freq: NEEDED Status: Active Protocol: Document 11/23/20 15:50 AW (Rec: 11/23/20 16:54 AW [id number]) Orientation Orientation/Cognition Level of Alertness Alert Orientation Name,Day of Week,Place, Situation Language Function Ability No Deficits Noted Safety Awareness Decreased Safety Awareness Gross Range of Motion Upper Extremity ROM Assessment Right Impaired Lower Extremity ROM Assessment Within Functional Limits Strength Upper Extremity Strength Assessment Bilaterally Impaired Shoulder L 4/5 Elbow L 4+/5 Lower Extremity Strength Assessment Bilaterally Impaired Hip 4-/5 Knee 4-/5 Ankle 4+/5 Comments Strength Comments RUE not assessed. Sensation Assessment Sensation Gross Sensation Right UE Impaired Light Touch Impaired Sensation Description Numbness Muscle Tone Muscle Tone WNL Yes M6 PT-IP Treatment Start: 11/23/20 15:17 Freq: NEEDED Status: Active Protocol: Document 11/23/20 15:50 AW (Rec: 11/23/20 16:54 AW [id number]) Physical Therapy Treatment Education Education Provided Precautions,Weight Bearing Status,Safety Brace Education [place],Patient Other Treatments Other Treatment Performed Provided education on role of PT, plan of care, and weightbearing status. M7 PT-IP Assessment and Plan Start: 11/23/20 15:17 Freq: NEEDED Status: Active Protocol: Document 11/24/20 15:14 HH (Rec: 11/24/20 15:21 HH [id number]) PT Summary Assessment and Plan Potential Rehabilitation Potential Good Status of Condition at Evaluation Evolving Summary Impairments Pain,ROM,Strength,Balance,Bed Mobility,Transfers,Gait Assessment Summary Pt shows increased amb distance this session upto 120 ft without AD. She attempted SPC but unsuccessful. Might consider to try quad cane for next session. However, d/t pt poor balance, limited UE mobility, pt will need constant supervision for any out of bed mobility so SNF rehab would be an ideal option for her at this point. Goals Bed Mobility Goal Independent Transfer Goal Independent Gait Goal Independent Gait Distance 150 Frequency of Treatment Frequency Of Treatment Twice a Day Treatment Plan Physical Therapy Treatment Plan Bed Mobility Training,Transfer Training,Gait Training, Therapeutic Exercise,Balance Retraining,Post Op Education, Discharge Planning,Hot or Cold Pack Other Recommendations and Next Treatment review precautins; perform Focus PROM elbow; mobility as tolerated Precautions Shoulder Precautions Sling,PROM,Pendulums Other Precautions Per op note: Patient being in the sling for the next 4-6 weeks. Initially we will do is have her work on pendulum motions to the shoulder. Active and passive range of motion to the elbow is allowed as well. No extension of the shoulder joint in order to protect the anterior structures. Recommendations To Nursing Amount of Assist Needed 1 Person Assist Discharge Recommendations PT Discharge Recommendations Home with Assistance,Home Health,SNF Rehab Transportation Needs at Discharge Private Vehicle,Wheelchair/ Cabulance
[2020-11-24] MEDS: AMITRIPTYLINE 10 MG TABLET PO (20:59)
[2020-11-24] MEDS: MAGNESIUM HYDROXIDE 30 ML UDC PO (21:00)
[2020-11-25] VITALS (8 sets, daily range): BP systolic 111–142; BP diastolic 51–73; PULSE 52–65; RESP 17–18; TEMP 36.6–37.4; O2SAT 94–96
--- NOTE | 2020-11-25 02:45 | PC.NURSE ---
2335: patient is alert and oriented. Breath sounds CTA with RA sat of 97%. HRR but bradycardic at 40-50 bpm. BP 136/60. Denies nausea. BT present and is passing flatus. Denies dysuria, frequency or urgency with urination. Is able to move self in bed but due to unsteadiness is provided assistance when up to bathroom; not using assistive device in room. Sling to right UE. Aquacel dressing is CDI. CMS is intact. Does admit to 3/10 right shoulder pain so medicated with Tylenol and ice pack applied. Applied bilateral calf SCD's. Fall risk score is high and bed alarm is activated.
[2020-11-25] MEDS: LEVOTHYROXINE 50 MCG TABLET PO (06:07)
--- NOTE | 2020-11-25 08:12 | PM.PNPO.1 ---
Subjective Subjective Date Patient Seen: 11/25/20 Time Patient Seen: 08:12 Interval history: POD #2 s/p removal of previous reverse total shoulder components and replacement with a CTA head with bone grafting of the glenoid with Dr. Blevins. Her pain is well controlled this Am with Tylenol, and she has taken 1/2 tab of Oxycodone and did well with it. She has been keeping her nausea under control. She has been working with PT. Exam Vital Signs (past 8 hours): - 11/25/20 03:11 Temperature 98.1 F Pulse Rate 52 L Respiratory Rate 18 Blood Pressure 142/73 H Pulse Oximetry 95 Oxygen Delivery Method Room Air Oxygen Flow Rate 0 Narrative Exam Narrative: Patient lying in bed in NAD. She is alert and oriented X3. Calves are soft, compressible, and nontender bilaterally. Sensation intact light touch throughout bilateral upper extremities. [place] strength strong and equal. Radial pulses symmetrical. Objective Labs Result Diagrams: 11/24/20 05:35 [facility] Medical History Anxiety Asthma (2019) Breast cancer, left (1982) CHF (congestive heart failure) History of left breast cancer HTN (hypertension) Pneumonia Primary osteoarthritis, right shoulder Rheumatoid arthritis with rheumatoid factor TIA (transient ischemic attack) Surgical History History of arthroplasty of left knee History of bunionectomy of left great toe History of carpal tunnel release of both wrists History of reduction surgery of right breast History of tonsillectomy History of total right hip arthroplasty Hx of left mastectomy (1983) Hx of removal of cyst (04/29/19) Status post appendectomy Status post total shoulder arthroplasty Social History household members: none Smoking Status: Former smoker alcohol intake: former Assessment & Plan Post-op Postoperative Procedures: Procedures Operation Date: 11/23/20 09:45 Actual Procedures Side Surgeon p 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 Follow Dr. Blevins TSA protocol. Continue current pain control. Continue ASA 81 mg BID for VTE prophylaxis. Patient will require SNF for continued care after surgery.
[2020-11-25] MEDS: FUROSEMIDE 20 MG TABLET PO (08:41)
[2020-11-25] MEDS: DOCUSATE 100 MG CAPSULE PO ×2 (08:41→20:30)
[2020-11-25] MEDS: HYDROXYCHLOROQUINE 200 MG TABLET PO (08:41)
[2020-11-25] MEDS: SPIRONOLACTONE 25 MG TABLET PO (08:41)
[2020-11-25] MEDS: POTASSIUM CHLORIDE 10 MEQ TAB PO (08:41)
[2020-11-25] MEDS: ASPIRIN EC 81 MG TABLET PO ×2 (08:42→20:28)
[2020-11-25] MEDS: carvediloL 12.5 MG TABLET PO ×2 (08:42→20:28)
[2020-11-25] MEDS: LOSARTAN 50 MG TABLET PO ×2 (08:42→20:30)
[2020-11-25] MEDS: predniSONE 5 MG TABLET PO (08:42)
[2020-11-25] MEDS: ACETAMINOPHEN 325 MG TABLET 975 MG PO ×2 (08:43→20:31)
[2020-11-25 10:32] LABS: COVID19 -Nasal RAPID Negative (Negative)
--- NOTE | 2020-11-25 10:35 | PT.IPTN ---
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 Initially we will do is have her work on pendulum motions to the shoulder. Active and passive range of motion to the elbow is allowed as well. No extension of the shoulder joint in order to protect the anterior structures. Weight Bearing Status Weight Bearing Status Non-Weight Bearing Allowed Weight Bearing Amount (enter % NWB RUE or #) (%) M3 PT-IP Subjective Start: 11/23/20 15:17 Freq: NEEDED Status: Active Protocol: Document 11/25/20 10:12 CLB (Rec: 11/25/20 13:40 CLB [id number]) Subjective Physical Therapy Visit Type Type Treatment Note Visit Start Time 10:12 Visit Stop Time 10:35 Total Visit Minutes 23 Number of PLATE ROLLER Visits 1 Physical Therapy Visit Comments Patient Comments Pt willing to get up with therapy. Therapy Pain Assessment Pain When Pain Assessed During Mobility Pain Present Pain Present Denied Pain M4 PT-IP Mobility and Gait Start: 11/23/20 15:17 Freq: NEEDED Status: Active Protocol: Document 11/25/20 10:12 CLB (Rec: 11/25/20 13:40 CLB [id number]) PT-Transfer Assessment Sit to and From Stand Sit to and from Stand Contact Guard Assistance Equipment Transfer Assistive Device None,Gait Belt Orthotic/Prosthetic Devices or Brace: Yes Transfers Transfer Destination Chair Transfer Technique Stand Step Pivot Transfer Ability Level of Assist Contact Guard Assistance,1 Person Assistance,Use of Upper Extremities Comments Mobility Comments Pt in chair upon arrival. Pt performed elbow, wrist hand ther ex. Pt stood CGA from chair with QC and ambulated in room ~40ft w/CGA/QC. Pt c/o dizziness and nausea and requested to sit down. Pt BP in sitting 134/73. Pt left in chair with all needs within reach. RN informed of pt status. Gait Assessment Gait Gait Assistance Required: Contact Guard Assist Distance (Feet) 40 Able to Maintain Weight Bearing Status Yes During Gait Assistive Devices Assistive Device Gait Belt,Large Based Quad Cane Orthotic/Prosthetic Devices or Brace: No Gait Deviations General Gait Pattern Antalgic,Decreased Stride Length,Decreased Feet Clearance,Flexed Trunk,Lateral Trunk Lean,Step-to Gait Factors Limiting Gait Function Factors Limiting Gait Function Decreased Activity Tolerance, Decreased Strength,Limited Range of Motion,Pain,Poor Balance,Poor Safety Awareness Comments Gait Comments see mobility comments Stair Climbing Assessment Comments Stair Climbing Comments Not assessed. PT-Balance Assessment Sitting Balance and Reactions Static Sitting Balance Ability Good Dynamic Sitting Balance Ability Fair Standing Balance and Reactions Static Standing Balance Ability Fair Dynamic Standing Balance Ability Poor Device Used WBQC M5 PT-IP Objective Assessments Start: 11/23/20 15:17 Freq: NEEDED Status: Active Protocol: Document 11/23/20 15:50 AW (Rec: 11/23/20 16:54 AW [id number]) Orientation Orientation/Cognition Level of Alertness Alert Orientation Name,Day of Week,Place, Situation Language Function Ability No Deficits Noted Safety Awareness Decreased Safety Awareness Gross Range of Motion Upper Extremity ROM Assessment Right Impaired Lower Extremity ROM Assessment Within Functional Limits Strength Upper Extremity Strength Assessment Bilaterally Impaired Shoulder L 4/5 Elbow L 4+/5 Lower Extremity Strength Assessment Bilaterally Impaired Hip 4-/5 Knee 4-/5 Ankle 4+/5 Comments Strength Comments RUE not assessed. Sensation Assessment Sensation Gross Sensation Right UE Impaired Light Touch Impaired Sensation Description Numbness Muscle Tone Muscle Tone WNL Yes M6 PT-IP Treatment Start: 11/23/20 15:17 Freq: NEEDED Status: Active Protocol: Document 11/25/20 10:12 CLB (Rec: 11/25/20 13:40 CLB [id number]) Physical Therapy Treatment Education Brace Education Zeynep Booker,Patient M7 PT-IP Assessment and Plan Start: 11/23/20 15:17 Freq: NEEDED Status: Active Protocol: Document 11/25/20 10:12 CLB (Rec: 11/25/20 13:40 CLB [id number]) PT Summary Assessment and Plan Potential Rehabilitation Potential Good Status of Condition at Evaluation Evolving Summary Impairments Pain,ROM,Strength,Balance,Bed Mobility,Transfers,Gait Assessment Summary Pt with nausea and dizziness during ambulation. Pt ambulated ~40ft with QC/CGA improving stablility. Pt will need 24/7 assistance for any out of bed mobility. SNF rehab would be an ideal option for her at this point. Goals Bed Mobility Goal Independent Transfer Goal Independent Gait Goal Independent Gait Distance 150 Frequency of Treatment Frequency Of Treatment Twice a Day Treatment Plan Physical Therapy Treatment Plan Bed Mobility Training,Transfer Training,Gait Training, Therapeutic Exercise,Balance Retraining,Post Op Education, Discharge Planning,Hot or Cold Pack Other Recommendations and Next Treatment review precautions; perform Focus ther ex, mobility as tolerated with quad cane. Precautions Shoulder Precautions Sling,PROM,Pendulums Other Precautions Per op note: Patient being in the sling for the next 4-6 weeks. Initially we will do is have her work on pendulum motions to the shoulder. Active and passive range of motion to the elbow is allowed as well. No extension of the shoulder joint in order to protect the anterior structures. Recommendations To Nursing Amount of Assist Needed 1 Person Assist Discharge Recommendations PT Discharge Recommendations Home with 24/7 Assist Available,Home Health,SNF Rehab Transportation Needs at Discharge Private Vehicle,Wheelchair/ Cabulance
--- NOTE | 2020-11-25 11:04 | PC.NURSE ---
Patient has an aquacel to her r.shoulder that is cdi. She is a one person assist to ambulate. Tylenol 975mg has been effective for pain control. Patient will be going to SNF tomorrow and her covid swab has been done.
--- NOTE | 2020-11-25 14:29 | CM.DPC ---
DCP SNF Planning SW spoke to [facility] and confirmed that they can accept pt tomorrow if medically stable and RN got updated COVID today in anticipation of d/c tomorrow to SNF. 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 Plan: SW to follow for likely d/c to [facility] tomorrow around 1100 if medically stable. COVID updated already. WILBERTO Ayala
--- NOTE | 2020-11-25 14:42 | PT.IPTN ---
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 Initially we will do is have her work on pendulum motions to the shoulder. Active and passive range of motion to the elbow is allowed as well. No extension of the shoulder joint in order to protect the anterior structures. Weight Bearing Status Weight Bearing Status Non-Weight Bearing Allowed Weight Bearing Amount (enter % NWB RUE or #) (%) M3 PT-IP Subjective Start: 11/23/20 15:17 Freq: NEEDED Status: Active Protocol: Document 11/25/20 14:25 CLB (Rec: 11/25/20 15:21 CLB [id number]) Subjective Physical Therapy Visit Type Type Treatment Note Visit Start Time 14:25 Visit Stop Time 14:42 Total Visit Minutes 17 Number of BOTTLER Visits 2 Physical Therapy Visit Comments Patient Comments Pt willing to get up with therapy. Therapy Pain Assessment Pain When Pain Assessed During Mobility Pain Present Pain Present Pain Reported M4 PT-IP Mobility and Gait Start: 11/23/20 15:17 Freq: NEEDED Status: Active Protocol: Document 11/25/20 14:25 CLB (Rec: 11/25/20 15:21 CLB [id number]) PT-Transfer Assessment Sit to and From Stand Sit to and from Stand Contact Guard Assistance Equipment Transfer Assistive Device None,Gait Belt Orthotic/Prosthetic Devices or Brace: Yes Transfer Ability Level of Assist Contact Guard Assistance,1 Person Assistance,Use of Upper Extremities Comments Mobility Comments Pt sitting on EOB visiting with her friend. Pt stood CGA ambulated in room ~45ft w/QC/ CGA. Pt requires cues to take smaller steps keeping cane closer to increase stability during ambulation. Pt returned to EOB CGA and performed elbow, wrist finger ther ex. Left pt on EOB visiting with friend all needs within reach. Gait Assessment Gait Gait Assistance Required: Contact Guard Assist Distance (Feet) 45 Able to Maintain Weight Bearing Status Yes During Gait Assistive Devices Assistive Device Gait Belt,Large Based Quad Cane Orthotic/Prosthetic Devices or Brace: No Gait Deviations General Gait Pattern Antalgic,Decreased Stride Length,Decreased Feet Clearance,Flexed Trunk,Lateral Trunk Lean,Step-to Gait Factors Limiting Gait Function Factors Limiting Gait Function Decreased Activity Tolerance, Decreased Strength,Limited Range of Motion,Pain,Poor Balance,Poor Safety Awareness Comments Gait Comments see mobility comments Stair Climbing Assessment Comments Stair Climbing Comments Not assessed. PT-Balance Assessment Sitting Balance and Reactions Static Sitting Balance Ability Good Dynamic Sitting Balance Ability Fair Standing Balance and Reactions Static Standing Balance Ability Fair Dynamic Standing Balance Ability Poor Device Used WBQC M5 PT-IP Objective Assessments Start: 11/23/20 15:17 Freq: NEEDED Status: Active Protocol: Document 11/23/20 15:50 AW (Rec: 11/23/20 16:54 AW [id number]) Orientation Orientation/Cognition Level of Alertness Alert Orientation Name,Day of Week,Place, Situation Language Function Ability No Deficits Noted Safety Awareness Decreased Safety Awareness Gross Range of Motion Upper Extremity ROM Assessment Right Impaired Lower Extremity ROM Assessment Within Functional Limits Strength Upper Extremity Strength Assessment Bilaterally Impaired Shoulder L 4/5 Elbow L 4+/5 Lower Extremity Strength Assessment Bilaterally Impaired Hip 4-/5 Knee 4-/5 Ankle 4+/5 Comments Strength Comments RUE not assessed. Sensation Assessment Sensation Gross Sensation Right UE Impaired Light Touch Impaired Sensation Description Numbness Muscle Tone Muscle Tone WNL Yes M6 PT-IP Treatment Start: 11/23/20 15:17 Freq: NEEDED Status: Active Protocol: Document 11/25/20 14:25 CLB (Rec: 11/25/20 15:22 CLB [id number]) Physical Therapy Treatment Exercises Exercises Elbow Flexion/Extension,Wrist ROM,Hand ROM M7 PT-IP Assessment and Plan Start: 11/23/20 15:17 Freq: NEEDED Status: Active Protocol: Document 11/25/20 14:25 CLB (Rec: 11/25/20 15:21 CLB [id number]) PT Summary Assessment and Plan Potential Rehabilitation Potential Good Status of Condition at Evaluation Evolving Summary Impairments Pain,ROM,Strength,Balance,Bed Mobility,Transfers,Gait Assessment Summary Pt ambulated CGA with quad cane. Pt required CGA for sit< >stand from EOB. Pt remains unsafe to ambulate w/o AD at this time and will need assist with dynamic mobility. Pt lives alone and is unsafe at this time to d/c home alone. Pt will benefit from SNF rehab to increase activity tolerance. Goals Bed Mobility Goal Independent Transfer Goal Independent Gait Goal Independent Gait Distance 150 Frequency of Treatment Frequency Of Treatment Twice a Day Treatment Plan Physical Therapy Treatment Plan Bed Mobility Training,Transfer Training,Gait Training, Therapeutic Exercise,Balance Retraining,Post Op Education, Discharge Planning,Hot or Cold Pack Other Recommendations and Next Treatment review precautions; perform Focus ther ex, mobility as tolerated with quad cane. Precautions Shoulder Precautions Sling,PROM,Pendulums Other Precautions Per op note: Patient being in the sling for the next 4-6 weeks. Initially we will do is have her work on pendulum motions to the shoulder. Active and passive range of motion to the elbow is allowed as well. No extension of the shoulder joint in order to protect the anterior structures. Recommendations To Nursing Amount of Assist Needed 1 Person Assist Discharge Recommendations PT Discharge Recommendations Home with 14/04 Assist Available,Home Health,SNF Rehab Transportation Needs at Discharge Private Vehicle,Wheelchair/ Cabulance
[2020-11-25] MEDS: AMITRIPTYLINE 10 MG TABLET PO (20:28)
[2020-11-25] MEDS: SODIUM CHLORIDE 0.9% FLUSH 10 ML IV (20:31)
--- NOTE | 2020-11-26 01:11 | PC.NURSE ---
2329: patient is alert and oriented. Breath sounds CTA with RA sat of 95%. HRR but bradycardic with rate of 55 bpm. Denies nausea. BT present and abdomen is soft; reports having had BM. Denies dysuria, frequency or urgency with urination. Moving self in bed. Due to unsteadiness is being assisted when out of bed and now using quad cane for more stability. Sling to right UE. CMS is intact. Aquacel dressing is CDI. States pain in right shoulder is minimal and rates severity as 2/10; had Tylenol at 2030 and feels pain is tolerable but agreeable to ice pack. Refusing SCD's tonight and is noted to be ankle waving as previously instructed. Fall risk score is high as patient reports having fallen in past 3 months so bed alarm is activated.
[2020-11-26] MEDS: LEVOTHYROXINE 50 MCG TABLET PO (05:44)
[2020-11-26] MEDS: SPIRONOLACTONE 25 MG TABLET PO (08:17)
[2020-11-26] MEDS: LOSARTAN 50 MG TABLET PO (08:17)
[2020-11-26] MEDS: FUROSEMIDE 20 MG TABLET PO (08:17)
[2020-11-26] MEDS: predniSONE 5 MG TABLET PO (08:17)
[2020-11-26] MEDS: POTASSIUM CHLORIDE 10 MEQ TAB PO (08:17)
[2020-11-26] MEDS: DOCUSATE 100 MG CAPSULE PO (08:17)
[2020-11-26] MEDS: HYDROXYCHLOROQUINE 200 MG TABLET PO (08:18)
[2020-11-26] MEDS: ASPIRIN EC 81 MG TABLET PO (08:18)
[2020-11-26] MEDS: carvediloL 12.5 MG TABLET PO (08:19)
[2020-11-26 09:00] VITALS: BP 135/85; PULSE 69; RESP 19; TEMP 36.7; O2SAT 97
--- NOTE | 2020-11-26 09:26 | PM.DS.1 ---
History of Present Illness History of Present Illness Date Patient Seen: 11/26/20 Time Patient Seen: 09:27 Chief complaint: INPT Narrative: History and physical is contained in the chart previously completed note. Please refer to that note for this information. Discharge Providers Provider Date of admission: 11/23/20 08:24 Discharge Date: 11/26/20 Primary care physician: Marilyn Lyle PA-C Consults: 11/23/20 12:06 Consult to Discharge Planning Routine Comment: Consult to Physical Therapy Evaluate & Treat Comment: Just pendulums to the shoulder. Physician Instructions: Evaluate and Treat Consult to Respiratory Therapy Evaluate & Treat Comment: Physician Instructions: Evaluate and treat Discharge provider: Joni Plummer MD Summary Hospital Course Discharge Diagnosis: 1. 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 She tolerated this well. She is elderly and medically debilitated and unable to care for herself so the plan is for discharge to assisted facility. Status at Discharge Cognitive/behavioral status at discharge: oriented Functional status at discharge: independent ambulation Overall status at discharge: patient is progressing back to baseline Time Spent with Patient Time spent: Less than 30 minutes Exam Vital Signs (past 8 hours): - 11/26/20 09:00 Temperature 98.0 F Pulse Rate 69 Respiratory Rate 19 Blood Pressure 135/85 Pulse Oximetry 97 Oxygen Delivery Method Room Air Oxygen Flow Rate 0 Narrative Exam Narrative: Right upper extremity wound is dressed with no drainage on the bandage. Light touch is intact in the axillary, muscular cutaneous, radial, ulnar, and median nerve distribution. She can extend her thumb, abduct her thumb, abduct her fingers and can fire her biceps and deltoid. Objective Labs Result Diagrams: 11/24/20 05:35 Labs: Laboratory Results - last 24 hr 11/25/20 10:21 SARS-CoV-2 (PCR) Negative [facility] Medical History Anxiety Asthma (2019) Breast cancer, left (1982) CHF (congestive heart failure) History of left breast cancer HTN (hypertension) Pneumonia Primary osteoarthritis, right shoulder Rheumatoid arthritis with rheumatoid factor TIA (transient ischemic attack) Surgical History History of arthroplasty of left knee History of bunionectomy of left great toe History of carpal tunnel release of both wrists History of reduction surgery of right breast History of tonsillectomy History of total right hip arthroplasty Hx of left mastectomy (1983) Hx of removal of cyst (04/29/19) Status post appendectomy Status post total shoulder arthroplasty Social History household members: none Smoking Status: Former smoker alcohol intake: former Discharge Assessment & Plan Assessment and Plan Assessment: Patient is stable status post revision of her right total shoulder. She is unable to care for herself at home. She has a mild post hemorrhagic anemia. Plan of Treatment: Discharged today to assisted. Follow up in 10-[address] Blevins. Discharge packet and prescriptions have been filled out. Discharge Plan Discharge Plan Patient Disposition: SNF Transfer to: [facility] Consult as needed: Dental, Hearing, Mental health, Podiatry and Vision Discharge orders & Medications Prescriptions: New docusate sodium [DOK] 100 mg Capsule 100 mg PO BID Qty: 20 RF: 0 oxycodone 5 mg Tablet 5 mg PO Q4-6H PRN (Reason: Pain, Moderate (4-6)) Qty: 30 RF: 0 Continued leflunomide [Arava] 20 MG tablet 20 mg PO QDAY Qty: 0 RF: 0 hydroxychloroquine 200 MG tablet 200 mg PO DAILY Qty: 0 RF: 0 prednisone 5 MG tablet 5 mg PO QDAY Qty: 0 RF: 0 omega-3 fatty acids Capsule 1,000 mg PO DAILY Qty: 0 RF: 0 amitriptyline 10 mg Tablet 10 mg PO BEDTIME RF: 0 albuterol sulfate 90 mcg/actuation Hfa Aerosol Inhaler 1 inh INHALATION TID PRN (Reason: Shortness Of Breath) RF: 0 levothyroxine 50 mcg Capsule 50 mcg PO DAILY RF: 0 PreserVision AREDS-2 [id number] Capsule 1 tab PO BID RF: 0 losartan 50 mg tablet 50 mg PO BID RF: 0 acetaminophen 650 mg Tablet Extended Release 1,300 mg PO Q8H RF: 0 carvedilol 25 mg Tablet 12.5 mg PO BID RF: 0 potassium chloride 10 mEq Tablet Extended Release 10 meq PO DAILY RF: 0 spironolactone 25 mg Tablet 25 mg PO DAILY RF: 0 chlordiazepoxide-clidinium [Librax (with clidinium)] 5-2.5 mg Capsule 1 cap PO BID RF: 0 furosemide 20 mg Tablet 1 tab PO DAILY RF: 0 Follow up/Referrals: Truman Blevins MD [Physician] - Marilyn Lyle PA-C [Primary Care Provider] - Discharge Health Status Multidrug resistant organism: No MDRO Precautions: [place] Diet/Activity/Treatments Diet: Diet as Tolerated and Regular Liquid consistency: Normal/Thin Food texture: Regular Activity: You may walk as tolerated. You may do physical therapy exercises with your right arm. You should remain in the sling when not exercising with physical therapy. Cold/Heat Therapy: Apply ice to the right shoulder for 15 minutes every hour as needed for pain control. Skin/Wound/Dressing Care Report to your healthcare provider any signs of infection, such as:: chills, fever, night sweats, increased pain, unusual drainage and unusual redness Dressing: Leave the dressing in place until your follow-up in our office. You may shower with the dressing in place. If the central strip of the dressing becomes saturated with either water or blood, please call the office. Special Rehabilitation Services Reason for rehabilitation: Post-operative therapy Rehab type: Physical therapy and Occupational therapy Visit Report/Discharge Packet Instructions: DI for Prescription Opioid Use, DI for Shoulder Replacement Stand Alone Forms: Surgery Discharge Discharge Data Primary Care Provider: Marilyn Lyle
--- NOTE | 2020-11-26 09:44 | PC.NURSE ---
Patients jeffery is wnl and freddy wnl. She is going to be transferred to [facility] at 11am.
--- NOTE | 2020-11-26 10:49 | CM.DANOTE ---
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 She was in agreement and expressed understanding. Provided the Important Message from Medicare to patient. Orders completed and faxed to [facility]. [facility] in admission confirmed patient to be picked-up at 1100am. PLAN: D/C to [facility] this date.
--- NOTE | 2020-11-26 11:47 | PT.IPTN ---
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 Initially we will do is have her work on pendulum motions to the shoulder. Active and passive range of motion to the elbow is allowed as well. No extension of the shoulder joint in order to protect the anterior structures. Weight Bearing Status Weight Bearing Status Non-Weight Bearing Allowed Weight Bearing Amount (enter % NWB RUE or #) (%) M3 PT-IP Subjective Start: 11/23/20 15:17 Freq: NEEDED Status: Active Protocol: Document 11/26/20 11:34 AW (Rec: 11/26/20 11:47 AW [id number]) Subjective Physical Therapy Visit Type Type Treatment Note Visit Start Time 10:11 Visit Stop Time 10:25 Total Visit Minutes 14 Number of CANTEEN OPERATOR Visits 0 Physical Therapy Visit Comments Patient Comments Pt is preparing for discharge to SNF. Therapy Pain Assessment Pain When Pain Assessed During Mobility Pain Present Pain Present Pain Reported M4 PT-IP Mobility and Gait Start: 11/23/20 15:17 Freq: NEEDED Status: Active Protocol: Document 11/26/20 11:34 AW (Rec: 11/26/20 11:47 AW [id number]) PT-Transfer Assessment Sit to and From Stand Sit to and from Stand Contact Guard Assistance Equipment Transfer Assistive Device None,Gait Belt,Large Based Quad Cane Orthotic/Prosthetic Devices or Brace: No Transfers Transfer Destination Chair Transfer Technique Stand Step Pivot Transfer Ability Level of Assist Contact Guard Assistance,1 Person Assistance,Use of Upper Extremities Comments Mobility Comments Pt was sitting up in the chair as PT arrived. She was able to scoot forward on the chair and stand with LBQC CGA before ambulating a total of 75feet with quad cane CGA. On return to the room, she transferred back to the chair and participated in ROM exercises. PT left her with call light in reach. Gait Assessment Gait Gait Assistance Required: Contact Guard Assist Distance (Feet) 75 Able to Maintain Weight Bearing Status Yes During Gait Assistive Devices Assistive Device Gait Belt,Large Based Quad Cane Orthotic/Prosthetic Devices or Brace: No Gait Deviations General Gait Pattern Antalgic,Decreased Stride Length,Decreased Feet Clearance,Flexed Trunk,Lateral Trunk Lean,Step-to Gait Factors Limiting Gait Function Factors Limiting Gait Function Decreased Activity Tolerance, Decreased Strength,Limited Range of Motion,Pain,Poor Balance,Poor Safety Awareness Comments Gait Comments see mobility comments Stair Climbing Assessment Comments Stair Climbing Comments Not assessed. PT-Balance Assessment Sitting Balance and Reactions Static Sitting Balance Ability Good Dynamic Sitting Balance Ability Fair Standing Balance and Reactions Static Standing Balance Ability Fair Dynamic Standing Balance Ability Poor Device Used WBQC M5 PT-IP Objective Assessments Start: 11/23/20 15:17 Freq: NEEDED Status: Active Protocol: Document 11/23/20 15:50 AW (Rec: 11/23/20 16:54 AW [id number]) Orientation Orientation/Cognition Level of Alertness Alert Orientation Name,Day of Week,Place, Situation Language Function Ability No Deficits Noted Safety Awareness Decreased Safety Awareness Gross Range of Motion Upper Extremity ROM Assessment Right Impaired Lower Extremity ROM Assessment Within Functional Limits Strength Upper Extremity Strength Assessment Bilaterally Impaired Shoulder L 4/5 Elbow L 4+/5 Lower Extremity Strength Assessment Bilaterally Impaired Hip 4-/5 Knee 4-/5 Ankle 4+/5 Comments Strength Comments RUE not assessed. Sensation Assessment Sensation Gross Sensation Right UE Impaired Light Touch Impaired Sensation Description Numbness Muscle Tone Muscle Tone WNL Yes M6 PT-IP Treatment Start: 11/23/20 15:17 Freq: NEEDED Status: Active Protocol: Document 11/26/20 11:34 AW (Rec: 11/26/20 11:47 AW [id number]) Physical Therapy Treatment Exercises Exercises Elbow Flexion/Extension,Wrist ROM,Hand ROM Education Brace Education Zeynep Booker,Patient M7 PT-IP Assessment and Plan Start: 11/23/20 15:17 Freq: NEEDED Status: Active Protocol: Document 11/26/20 11:34 AW (Rec: 11/26/20 11:47 AW [id number]) PT Summary Assessment and Plan Potential Rehabilitation Potential Good Status of Condition at Evaluation Stable Summary Impairments Pain,ROM,Strength,Balance,Bed Mobility,Transfers,Gait Assessment Summary Pt continues to require CGA for all mobility and cues for sequencing gait pattern with WBQC. Pt is steadier with AD. Pt remains unsafe to ambulate w/o AD at this time and will need assist with dynamic mobility. Pt lives alone and is unsafe at this time to d/c home alone. Pt will benefit from SNF rehab to improve functional mobility. Goals Bed Mobility Goal Independent Transfer Goal Independent Gait Goal Independent Gait Distance 150 Frequency of Treatment Frequency Of Treatment Twice a Day Treatment Plan Physical Therapy Treatment Plan Bed Mobility Training,Transfer Training,Gait Training, Therapeutic Exercise,Balance Retraining,Post Op Education, Discharge Planning,Hot or Cold Pack Other Recommendations and Next Treatment review precautions; perform Focus ther ex, mobility as tolerated with quad cane. Precautions Shoulder Precautions Sling,PROM,Pendulums Other Precautions Per op note: Patient being in the sling for the next 4-6 weeks. Initially we will do is have her work on pendulum motions to the shoulder. Active and passive range of motion to the elbow is allowed as well. No extension of the shoulder joint in order to protect the anterior structures. Recommendations To Nursing Amount of Assist Needed Standby Assistance Discharge Recommendations PT Discharge Recommendations Home with 24/ Assist Available,Home Health,SNF Rehab Transportation Needs at Discharge Private Vehicle,Wheelchair/ Cabulance
== END 2020-11-26 11:00 | DRG 483 ==
PROVIDERS: Physician Assistant Surgical; Admitting Provider Orthopaedic Surgery; PCP Physician Assistant Medical; Referring Provider Orthopaedic Surgery; Visit Provider Orthopaedic Surgery
PROC: 0RQJ0ZZ Repair Right Shoulder Joint, Open Approach (ICD-10-PCS; CPT 23472; principal; 2020-11-23 09:45)
DX: T84.038A Mechanical loosening of other internal prosthetic joint, initial encounter (principal); I50.9 Heart failure, unspecified; I11.0 Hypertensive heart disease with heart failure; M06.9 Rheumatoid arthritis, unspecified; E03.9 Hypothyroidism, unspecified; M19.011 Primary osteoarthritis, right shoulder; Z87.891 Personal history of nicotine dependence; Z20.822 Contact with and (suspected) exposure to COVID-19
CPT/HCPCS: 36415; 64450; 73030; 85027; 87070; 87075; 87176; 87205; 87635; 97110; 97116; 97162; C1776; C9803; A9270; J0330; J1100; J2250; J2405; J2704; J3010; J8501

== ENCOUNTER → 2021-06-21 12:25 | Outpatient (CLI) | payer MEDICARE, OTHER, SELFPAY ==
[2020-11-23 13:45] VITALS: BMI 21.6
--- NOTE | 2021-06-21 | DI.MRI.S_ITS ---
PROCEDURE: MR KNEE RT WO CON INDICATIONS: Unilateral primary osteoarthritis, right knee TECHNIQUE: Noncontrast sagittal PD fast spin echo and T2 fast spin echo with fat saturation, sagittal 3-D FLASH with fat saturation; coronal T1 spin echo and PD fast spin echo with fat saturation, and axial PD fast spin echo with fat saturation through the knee. COMPARISON: [facility], MR, KNEE WITHOUT CONTRAST, 08/30/2016, 10:42. FINDINGS: Image quality: Excellent. Menisci: Diminutive appearance of medial meniscus is seen suggestive of chronic complex tear of medial meniscus. Peripheral displacement of medial meniscal remanent is seen bowing medial collateral ligament. There is also suggestion of complex tear versus prior partial meniscectomy involving anterior horn and body of lateral meniscus. Posterior horn of lateral meniscus is intact. Chronic high-grade partial-thickness tear involving posterior meniscal root ligament is again seen. Cruciate ligaments: There is nonvisualization of normal ACL fibers consistent with chronic ACL rupture unchanged from prior study. Markedly thickened PCL with intrasubstance T2 hyperintense signal consistent with sprain/low to moderate grade intrasubstance partial-thickness tear. No full-thickness PCL rupture. Medial structures: Moderate grade MCL sprain/partial-thickness tear is seen. The posterior oblique ligament, semimembranosus tendon insertions, oblique popliteal ligament, and meniscocapsular junction appear intact. Visualized portions of the pes anserinus tendons appear normal. No abnormal bursal fluid. Lateral structures: Low to moderate grade LCL sprain/partial-thickness tear is noted. The long and short heads of the biceps femoris tendon appear intact. The popliteus tendon appears normal; the popliteofibular ligament appears intact. The posterosuperior and anteroinferior popliteomeniscal fascicles appear intact. The arcuate and fabellofibular ligaments appear intact, on either side of the lateral inferior geniculate artery. Iliotibial band appears normal. Anterior structures: The quadriceps and patellar tendons appear intact. Patellar alignment is normal. No femoral trochlear dysplasia or ventral trochlear prominence. No edema in the infrapatellar fat pad. Bones and cartilage: Severe medial and lateral femoral tibial compartment osteoarthritis and chondromalacia is seen. Moderate patellofemoral compartment osteoarthritis and low-grade chondromalacia is also noted. Extensive marrow edema involving weight-bearing portion of medial femoral condyle. Adjacent medial tibial plateau, and throughout lateral femoral condyle and adjacent lateral tibial plateau is seen. No discrete fracture line is noted. Joint space: There is moderate to large joint effusion, no gross intra-articular loose body. A popliteal cyst is seen measures 2.8 x 1.7 x 4.5 cm in size. Normal appearing synovial plicae are incidentally noted. IMPRESSION: 1. Severe medial and lateral femoral tibial compartment osteoarthritis and chondromalacia with extensive bony contusion in both medial and lateral femoral tibial compartments without discrete fracture line. Moderate osteoarthritis and chondromalacia in patellofemoral compartment. Moderate to large joint effusion and popliteal cyst as above. No gross loose body. 2. Chronic complex tear throughout medial meniscus and chronic high-grade partial-thickness tear involving posterior meniscal root ligament. Absence of normal anterior horn and body of lateral meniscus suggestive of partial meniscectomy versus chronic complex tear. Posterior horn of lateral meniscus is grossly intact. 3. Chronic full-thickness ACL rupture. Sprain/low to moderate grade partial-thickness intrasubstance tear involving posterior cruciate ligament. No full-thickness PCL rupture. 4. Moderate grade MCL sprain/partial-thickness tear and low to moderate grade LCL sprain/partial-thickness tear. Dictated by: Manuel Malloy M.D. on 06/21/2021 at 17:21 Approved by: Manuel Malloy M.D. on 06/21/2021 at 17:30
== END ==
PROVIDERS: PCP Physician Assistant Medical; Referring Provider Orthopaedic Surgery; Visit Provider Orthopaedic Surgery
DX: M17.11 Unilateral primary osteoarthritis, right knee (principal); S83.231A Complex tear of medial meniscus, current injury, right knee, initial encounter; S83.511A Sprain of anterior cruciate ligament of right knee, initial encounter; S83.411A Sprain of medial collateral ligament of right knee, initial encounter; S83.421A Sprain of lateral collateral ligament of right knee, initial encounter; M22.41 Chondromalacia patellae, right knee; M25.461 Effusion, right knee; M71.21 Synovial cyst of popliteal space [Baker], right knee
CPT/HCPCS: 73721

== ENCOUNTER → 2021-08-06 11:10 | Outpatient (CLI) | payer MEDICARE, OTHER, SELFPAY ==
[2020-11-23 13:45] VITALS: BMI 21.6
[2021-08-06 16:05] LABS: COVID19 -Nasal RAPID Negative (Negative)
== END ==
PROVIDERS: PCP Physician Assistant Medical; Referring Provider Physician Assistant; Visit Provider Physician Assistant
DX: Z01.812 Encounter for preprocedural laboratory examination (principal); Z20.822 Contact with and (suspected) exposure to COVID-19
CPT/HCPCS: 87635

== ENCOUNTER 2021-08-07 12:52 | Day surgery (SDC) | payer MEDICARE, OTHER, SELFPAY ==
[2020-11-23 13:45] VITALS: BMI 21.6
[2021-08-01 08:18] VITALS: BMI 21.2
[2021-08-07] VITALS (14 sets, daily range): BP systolic 143–166; BP diastolic 46–98; PULSE 60–74; RESP 12–18; TEMP 36.1–36.6; O2SAT 96–98; BMI 21.2
[2021-08-07] MEDS: LACTATED RINGERS 1,000 ML 42 ML IV (13:25)
[2021-08-07] MEDS: ACETAMINOPHEN 325 MG TABLET 975 MG PO (13:46)
[2021-08-07] MEDS: PREGABALIN 75 MG CAPSULE PO (13:50)
[2021-08-07] MEDS: VANCOMYCIN 1,000 MG/200 ML PIGGYBACK 200 MG IV (14:30)
--- NOTE | 2021-08-07 15:00 | DI.RAD.S_ITS ---
PROCEDURE: XR KNEE RT 1TO2V INDICATIONS: RIGHT TOTAL KNEE TECHNIQUE: 2 view(s) of the knee acquired. COMPARISON: [facility] [place], CR, XR KNEE 4+ VIEWS RIGHT, 01/24/2021, 10:43. [facility], MR, MR KNEE RT WO CON, 06/21/2021, 12:54. [facility], CR, KNEE 1-2 VIEWS LEFT, 10/03/2016, 14:19. FINDINGS: Bones: Patient is status post knee joint arthroplasty. Hardware components are in expected positions. Visualized bony structures are intact. Soft tissues: Overlying postoperative changes are noted. Atherosclerotic calcification is noted. IMPRESSION: Normal postoperative examination. Dictated by: Froilan Stephen M.D. on 08/07/2021 at 22:16 Approved by: Frolian Stephen M.D. on 08/07/2021 at 22:17
--- NOTE | 2021-08-07 15:28 | PM.PREOP ---
Pre-operative Note COVID-19 COVID-19 status: Negative Interval Note History & Physical reviewed/Exam performed by Physician: Yes Changes to H&P: No H&P completed within 30 days and has changed as indicated here:: also left shoulder pain with rheumatoid arthritis, will do a left shoulder cortisone injection
--- NOTE | 2021-08-07 15:30 | PM.OP.1 ---
Operative Date/Time/Diagnoses Date of procedure: 08/07/21 Time of procedure: 15:40 Pre-op diagnosis: right knee rheumatoid arthritis Post-op diagnosis: same Procedure & Clinicians Procedure: Right total knee arthroplasty Same procedure as scheduled: Yes Indications: This is 81 year old with rheumatoid arthritis and severe right knee disease as well as some left shoulder disease. The plan is for a right total knee arthroplasty and a left shoulder cortisone injection. The patient has had progressively worsening right knee pain with radiographic changes consistent with arthritis. Non-operative management has failed and the patient has requested total knee replacement. The risks, benefits and alternatives to surgery were discussed with the patient prior to proceeding. Risks discussed included, but were not limited to, failure to relieve pain, stiffness, infection, nerve damage, deep venous thrombosis, pulmonary embolism, stroke, coma, heart attack, permanent paralysis and , as well as the potential need for eventual revision of the prosthetic. Surgeon: Erika Cornelius Community Living Instructor: Jen Brown Anesthesia Type: General Operative Notes Findings: Severe right knee osteoarthritis, some softening of the right proximal tibia Closure Type: primary Specimen(s): none sent Prosthetic devices, grafts, tissues, transplants, or devices: Size 4 [employer] Journey BCS 2, patella 32 x 7.5 mm round, +11 poly, size 3 tibia with a 10 x 100 mm stem Applied: drain(s) Estimated Blood Loss (mL): 250 Blood products transfused: none Tourniquet time (min): 69 Procedure in detail: The patient was seen in the pre-operative area, where the patient identified the right knee as the operative site and this was marked with my initials. The patient received pre-operative antibiotics, and was taken to the operating room and placed on the operative table in the supine position. After satisfactory anesthesia, a second time worker out was performed. The right leg was encircled with a tourniquet about the proximal thigh, and the leg was prepared from the toes to the tourniquet with ChloroPrep in the usual fashion and draped through sterile drapes. The leg was elevated and exsanguinated with Eschmark bandage and the tourniquet inflated to [250] mmHg pressure. The knee was approached through an approximately 18 cm incision centered over the patella and carried into the knee through a medial parapatellar arthrotomy. Portion of the medial and lateral meniscus was resected. Soft tissue was carefully mobilized around the patella the patella was measured with a caliper. Bone was resected from the patella and the patellar height was reconstituted with up an appropriate sized patellar component. For a cover was then placed on the patella. A small amount of additional medial and lateral meniscus was resected. The visionare guide fit well to the distal femur. It looked like an appropriate distal femoral cut and the cut was made without difficulty. The rotation was assessed and the appropriate size femoral guide was placed on the distal femur and finishing cuts were made. There was no evidence of notching. The anterior, posterior and chamfer cuts were then made. The posterior osteophytes and soft tissues were then removed. The posterior capsule was injected with part of a mixture of 60 ml 0.25% Marcaine mixed with 20 ml Exparel for post operative pain control. The remainder of this mixture was injected into the capsule and subcutaneous tissues during cement curing. The tibia was prepared and the visionaire guide fit well to the distal tibia. The rotation was assessed. The patient was placed in extension residual medial and lateral meniscus as well as any residual bone was carefully resected. [No] additional tibia was resected. She did have moderate softening of the tibia. Hemostasis was achieved especially posteriorly. Additional local was injected into the posterior capsule. The extension gap was assessed and additional releases for gap balancing were performed as necessary. It was checked with the gap patient access representative. The femoral component was trial was placed and the notch was finished. Trial tibial and femoral components were then placed and the knee placed through a range of motion. Range of motion was [0-130], with good stability throughout the range. The trials were then removed, and the tibia was finished. It was felt that it would be beneficial to supplement the tibia with a short extension stem. It was reamed for a 10 mm by 100 mm stem. The bone was prepared with pulsatile lavage, and dried with a sponge. Cement was applied and the final prosthetics placed. Excess cement was removed during and after cement curing. A brief Betadine soak was performed. After confirming there was no extruded cement posteriorly, the final tibial insert was placed. The knee was copiously irrigated and the tourniquet deflated. Hemostasis was obtained with the bovie. A drain was placed and brought out superolaterally. The capsule was closed with interrupted vicryl suture. The subcutaneous layer was closed with barbed sutures, and the skin with a running 3-0 V-Lock suture and Surgical glue. An Aquacel Ag dressing was applied and the patient was taken to recovery having tolerated the procedure well. Complications: none Post-operative Condition: stable Disposition: Acute Care Plan for aftercare: The patient will be maintained on a standard total knee replacement protocol with weight bearing as tolerated. The patient will receive aspirin and sequential compression devices for DVT prophylaxis. The patient will be discharged home when safe for the home environment.
[2021-08-07] MEDS: TRANEXAMIC ACID 1,000 MG VIAL 1000 MG INJ ×2 (16:04→17:28)
[2021-08-07] MEDS: CEFAZOLIN 1 GM VIAL 2 GM IV (16:15)
--- NOTE | 2021-08-07 16:23 | SUR.OPER ---
Supine on padded OR bed. Pillow under head, arms secured on padded armboards <90 degree abduction. Safety belt across torso. Non-operative leg secured with tape over blanket over lower leg. Operative leg secured in DeMayo/Angel/Nathe positioner. Foam padded brace at thigh of operative leg.
[2021-08-07] MEDS: BUPIVACAINE LIPOSOME 266 MG/20 ML VIAL INJ (16:33)
[2021-08-07] MEDS: BUPIVACAINE 0.25% (PF) 60 ML, EPINEPHrine 0.3 MG INJ (16:33)
[2021-08-07] MEDS: DEXAMETHASONE 10 MG/ML VIAL IV (16:57)
[2021-08-07] MEDS: LACTATED RINGERS 1,000 ML 100 ML IV (18:39)
[2021-08-07] MEDS: carvediloL 12.5 MG TABLET PO (20:53)
[2021-08-07] MEDS: ASPIRIN EC 81 MG TABLET PO (20:53)
[2021-08-07] MEDS: ACETAMINOPHEN 325 MG TABLET 650 MG PO (20:54)
[2021-08-07] MEDS: DOCUSATE 100 MG CAPSULE PO (20:54)
[2021-08-07] MEDS: MULTIVITAMIN 1 TABLET 1 TAB PO (20:54)
[2021-08-07] MEDS: LOSARTAN 50 MG TABLET PO (20:54)
--- NOTE | 2021-08-07 23:58 | PC.NURSE ---
Patient is alert and oriented. Breath sounds CTA with RA sat of 97%. HRR. Denied nausea. BT present and is passing flatus. Had not yet voided since return from surgery and reported she last urinated around 1300 so gotten up to [facility] with walker and 1 assist but unable to void. Bladder scan indicated 441cc in bladder but patient requested additional time as feels she will be able to urinate shortly. Allowed her additional time and was able to urinate 250cc at 2200; urine was dark yellow. Is able to turn herself in bed. Aquacel dressing to right knee covered with home wrap is CDI; hemovac is intact and compressed and was unclamped at 1945 as per order. Has some swelling in left shoulder; patient reports she was given cortisone injection earlier today. CMS is intact to bilateral LE; unable to lift right leg more than 1 off bed. Stated pain was 2-3/10 and was medicated with scheduled Tylenol and is currently asleep. Fall risk score is high and bed alarm is activated.
[2021-08-08] MEDS: CEFAZOLIN 1 GM VIAL 2 GM IV ×2 (00:17→09:26)
[2021-08-08 02:00] VITALS: BP 154/64; PULSE 53; RESP 17; TEMP 36.6; O2SAT 98
[2021-08-08] MEDS: OXYCODONE IR 5 MG TABLET PO ×3 (04:38→12:14)
[2021-08-08] MEDS: ONDANSETRON 4 MG ODT PO ×3 (04:46→12:14)
[2021-08-08] MEDS: LEVOTHYROXINE 50 MCG TABLET PO (05:29)
[2021-08-08 06:00] VITALS: BP 144/58; PULSE 63; RESP 17; TEMP 36.6; O2SAT 96
[2021-08-08 07:17] LABS: Hematocrit 33.3 % (36-46); Hemoglobin 11.2 g/dL (12.0-16.0)
--- NOTE | 2021-08-08 07:57 | P.DS_ITS ---
History of Present Illness History of Present Illness Date Patient Seen: 08/08/21 Time Patient Seen: 07:57 Chief complaint: Right knee pain Narrative: Patient's pain is mild. Denies fever or chills. Some mild nausea this morning but no vomiting. She does have assistance at home. Discharge Providers Provider Discharge Date: 08/08/21 Primary care physician: Marilyn Lyle PA-C Consults: 08/07/21 09:02 Consult to Anesthesiology Routine Comment: Consulting Provider: Anesthesiologist Reason for consultation: Regional block for post operative pain control 08/07/21 18:29 Consult to Discharge Planning Routine Comment: Consult to Physical Therapy Evaluate & Treat Comment: Physician Instructions: postop TKA protocol Consult to Respiratory Therapy Evaluate & Treat Comment: Physician Instructions: Evaluate and treat Discharge provider: Attila Johnson PA-C Summary Hospital Course Discharge Diagnosis: Right knee rheumatoid arthritis Hospital Course: Procedure: Right total knee arthroplasty Same procedure as scheduled: Yes Indications: This is 81 year old with rheumatoid arthritis and severe right knee disease as well as some left shoulder disease.? The plan is for a right total knee arthroplasty and a left shoulder cortisone injection.? The patient has had progressively worsening right knee pain with radiographic changes consistent with arthritis. Non-operative management has failed and the patient has requested total knee replacement. The risks, benefits and alternatives to surgery were discussed with the patient prior to proceeding. Risks discussed included, but were not limited to, failure to relieve pain, stiffness, infection, nerve damage, deep venous thrombosis, pulmonary embolism, stroke, coma, heart attack, permanent paralysis and , as well as the potential need for eventual revision of the prosthetic. Surgeon: Erika Cornelius Commercial Artist Lettering: Jen Brown Anesthesia Type: General Operative Notes Findings: Severe right knee osteoarthritis, some softening of the right proximal tibia Closure Type: primary Specimen(s): none sent Prosthetic devices, grafts, tissues, transplants, or devices: Size 4 [employer] BCS 2, patella 32 x 7.5 mm round, +11 poly, size 3 tibia with a 10 x 100 mm stem Applied: drain(s) Estimated Blood Loss (mL): 250 Blood products transfused: none Tourniquet time (min): 69 Patient admitted for right total knee arthroplasty. Patient consented to the same. Patient taken to the operating room on August 07, 2021 underwent right total knee arthroplasty. Patient back in her room recovering well and is in stable condition. Patient will be discharged home today after physical therapy if safe for home environment. Status at Discharge Cognitive/behavioral status at discharge: at baseline, oriented Functional status at discharge: uses cane/walker Overall status at discharge: patient is progressing back to baseline Exam Vital Signs (past 8 hours): - 08/08/21 02:00 08/08/21 06:00 Temperature 97.8 F 97.9 F Pulse Rate 53 L 63 Respiratory Rate 17 17 Blood Pressure 154/64 H 144/58 H Pulse Oximetry 98 96 Oxygen Delivery Method Room Air Oxygen Flow Rate 0 Narrative Exam Narrative: Pleasant 81-year-old female resting comfortably in bed in no apparent distress. Dressing is Clean, dry, intact.. Motor functions intact distal right lower extremity. Sensation grossly intact to light touch distal right lower extremity. Objective Labs Result Diagrams: 08/08/21 06:15 Labs: Laboratory Results - last 24 hr 08/08/21 06:15 Hgb 11.2 L Hct 33.3 L PFSH Medical History Anxiety Asthma (2019) Breast cancer, left (1982) CHF (congestive heart failure) History of left breast cancer HTN (hypertension) Pneumonia Primary osteoarthritis, right shoulder Rheumatoid arthritis with rheumatoid factor TIA (transient ischemic attack) Surgical History History of arthroplasty of left knee History of bunionectomy of left great toe History of carpal tunnel release of both wrists History of reduction surgery of right breast History of tonsillectomy History of total right hip arthroplasty Hx of left mastectomy (1983) Hx of removal of cyst (04/29/19) Hx of shoulder surgery (11/23/20) Status post appendectomy Status post total shoulder arthroplasty Social History household members: none Smoking Status: Former smoker alcohol intake: former Discharge Assessment & Plan Assessment and Plan Assessment: Patient progressing as expected status post right total knee arthroplasty Plan of Treatment: Weight-bearing as tolerated Discharge home today after physical therapy if safe for home environment Discharge Plan Discharge Plan Patient Disposition: Home Provider Discharge Comment: Discharge home today after physical therapy if safe for home environment Discharge orders & Medications Discharge Orders: Discharge (Order); Ordered 08/08/21 Ordered By: Attila Johnson Prescriptions: New acetaminophen 325 mg Tablet 650 mg PO TID Qty: 60 0RF polyethylene glycol 3350 17 gram Powder In Packet 17 gm PO DAILY PRN (Reason: Constipation) Qty: 10 0RF aspirin 81 mg Tablet,Delayed Release (Dr/Ec) 81 mg PO BID Qty: 60 0RF ondansetron 4 mg Tablet,Disintegrating 4 mg PO Q4HR PRN (Reason: Nausea) Qty: 20 0RF Continued hydroxychloroquine 200 MG tablet 200 mg PO DAILY Qty: 0 0RF Rx Instructions: With Food prednisone 5 MG tablet 5 mg PO QDAY Qty: 0 0RF amitriptyline 10 mg Tablet 10 mg PO BEDTIME 0RF albuterol sulfate 90 mcg/actuation Hfa Aerosol Inhaler 1 inh INHALATION TID PRN (Reason: Shortness Of Breath) 0RF levothyroxine 50 mcg Capsule 50 mcg PO DAILY 0RF PreserVision AREDS-2 [id number] Capsule 1 tab PO BID 0RF losartan 50 mg tablet 50 mg PO BID 0RF docusate sodium [DOK] 100 mg Capsule 100 mg PO BID Qty: 20 0RF oxycodone 5 mg Tablet 5 mg PO Q4-6H PRN (Reason: Pain, Moderate (4-6)) Qty: 30 0RF carvedilol 25 mg Tablet 12.5 mg PO BID 0RF potassium chloride 10 mEq Tablet Extended Release 10 meq PO DAILY 0RF spironolactone 25 mg Tablet 25 mg PO DAILY 0RF chlordiazepoxide-clidinium [Librax (with clidinium)] 5-2.5 mg Capsule 1 cap PO BID 0RF furosemide 20 mg Tablet 1 tab PO DAILY 0RF Discontinued acetaminophen 650 mg Tablet Extended Release 1,300 mg PO Q8H 0RF Follow up/Referrals: Erika Cornelius MD [Physician] - (2 weeks) Marilyn Lyle PA-C [Primary Care Provider] - Diet/Activity/Treatments Diet: Diet as Tolerated Activity: Weight-bearing as tolerated Cold/Heat Therapy: Apply ice to knee as needed Skin/Wound/Dressing Care Report to your healthcare provider any signs of infection, such as:: chills, fever, increased pain, unusual drainage and unusual redness Dressing: Keep dressing clean and dry, may remove Tyrel wrap in 48-72 hours, leave dressing in place Visit Report/Discharge Packet Instructions: DI for Knee Replacement Stand Alone Forms: Surgery Discharge Discharge Data Primary Care Provider: Marilyn Lyle Attending Provider: Erika Cornelius VTE Deep Vein Thrombosis/Pulmonary Embolism Present on Admission: No
[2021-08-08] MEDS: SPIRONOLACTONE 25 MG TABLET PO (09:10)
[2021-08-08] MEDS: MULTIVITAMIN 1 TABLET 1 TAB PO (09:10)
[2021-08-08] MEDS: POTASSIUM CHLORIDE 10 MEQ TAB PO (09:10)
[2021-08-08] MEDS: FUROSEMIDE 20 MG TABLET PO (09:10)
[2021-08-08] MEDS: DOCUSATE 100 MG CAPSULE PO (09:10)
[2021-08-08] MEDS: LOSARTAN 50 MG TABLET PO (09:11)
[2021-08-08] MEDS: predniSONE 5 MG TABLET PO (09:11)
[2021-08-08] MEDS: carvediloL 12.5 MG TABLET PO (09:11)
[2021-08-08] MEDS: ASPIRIN EC 81 MG TABLET PO (09:11)
[2021-08-08] MEDS: ACETAMINOPHEN 325 MG TABLET 650 MG PO (09:12)
[2021-08-08] MEDS: SODIUM CHLORIDE 0.9% FLUSH 10 ML IV (09:13)
[2021-08-08] MEDS: HYDROXYCHLOROQUINE 200 MG TABLET PO (09:14)
--- NOTE | 2021-08-08 11:36 | PT.IIE ---
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 Used cane or walker. Has FWW at home. Activities of Daily Living and IADL's modified independent Social History Household Members none Living Arrangements House Number of Floors (Floors) One Floor Number of Stairs To Enter/Railing? has ramp Home Environment Standard Height Toilet,Walk in Shower Home Equipment Front Wheel Walker,Straight Cane,Grab Bars Near Toilet, Grab Bars In Shower Employment Status Retired M2 PT-IP Current Condition Start: 08/08/21 10:19 Freq: NEEDED Status: Active Protocol: Document 08/08/21 11:25 SAK (Rec: 08/08/21 11:36 [facility] [id number]) Physical Therapy Current Condition Current Condition Evaluation Date 08/08/21 Treatment Diagnosis s/p right TKA Onset Date 10/07/20 M3 PT-IP Subjective Start: 08/08/21 10:19 Freq: NEEDED Status: Active Protocol: Document 08/08/21 11:25 SAK (Rec: 08/08/21 11:36 [facility] [id number]) Subjective Physical Therapy Visit Type Visit Start Time 10:20 Visit Stop Time 10:49 Total Visit Minutes 29 Physical Therapy Visit Comments Patient Comments Patient reports has minimal pain, but has had some nausea this am. Patient Goals Return home with assist of friend for first few days. Therapy Pain Assessment Location Right Knee Intensity 2 Scale Used Numeric (0 - 10) M4 PT-IP Mobility and Gait Start: 08/08/21 10:19 Freq: NEEDED Status: Active Protocol: Document 08/08/21 11:25 SAK (Rec: 08/08/21 11:36 [facility] [id number]) PT-Bed Mobility Assessment Sit to Supine Sit to Supine Standby Assistance PT-Transfer Assessment Sit to and From Stand Sit to and from Stand Minimal Assistance Equipment Transfer Assistive Device Front Wheeled Walker Transfer Ability Level of Assist Minimal Assistance Gait Assessment Gait Gait Assistance Required: Contact Guard Assist Distance (Feet) 70 Able to Maintain Weight Bearing Status Yes During Gait Assistive Devices Assistive Device Front Wheeled Walker Gait Deviations General Gait Pattern Antalgic Factors Limiting Gait Function Factors Limiting Gait Function Decreased Strength,Pain Comments Gait Comments lack of heelstrike on right, improved some with cues Stair Climbing Assessment Comments Stair Climbing Comments stairs not done; none at home, has ramp PT-Balance Assessment Sitting Balance and Reactions Static Sitting Balance Ability Normal Standing Balance and Reactions Static Standing Balance Ability Fair Device Used FWW M5 PT-IP Objective Assessments Start: 08/08/21 10:19 Freq: NEEDED Status: Active Protocol: Document 08/08/21 11:25 SAK (Rec: 08/08/21 11:36 [facility] [id number]) Orientation Orientation/Cognition Level of Alertness Alert Orientation Name,Age,Date,Place,Situation Safety Awareness Understands Safety Issues Memory Description No Deficits Noted Gross Range of Motion Lower Extremity ROM Assessment Right Impaired Impairments right knee 10-75 Sensation Assessment Sensation Gross Sensation WNL M6 PT-IP Treatment Start: 08/08/21 10:19 Freq: NEEDED Status: Active Protocol: Document 08/08/21 11:25 SAK (Rec: 08/08/21 11:36 [facility] [id number]) Physical Therapy Treatment Exercises Exercises Ankle Pumps,Quad Sets,Heel Slides,Straight Leg Raises, Short Arc Quads,Passive Knee Extension Hang Education Education Provided Weight Bearing Status,Post-Op Packet,Safety M7 PT-IP Assessment and Plan Start: 08/08/21 10:19 Freq: NEEDED Status: Active Protocol: Document 08/08/21 11:25 SAK (Rec: 08/08/21 11:36 [facility] [id number]) PT Summary Assessment and Plan Potential Rehabilitation Potential Good Status of Condition at Evaluation Stable Summary Impairments Pain,ROM,Strength,Gait Assessment Summary Patient POD#1 right TKA, overall doing well, some nause . Required min assist to transfer sit to stand from chair, gait 70ft with FWW and CGA and cues for heelstrike right. Patient able to transfer stand to sit with CGA and sit to supine with SBA. She will have a friend in the home to help her as needed for first few days. She is scheduled to start outpatient PT in 1 week at [facility]. Anticipate her being ready for discharge after 1 further PT visit after lunch today, assure independence in HEP, improved transfer ability out of chair with cues for scooting further forward. Goals Bed Mobility Goal Independent Transfer Goal Independent Gait Goal Independent Gait Distance 100 Days to Meet Goals 1 Frequency of Treatment Frequency Of Treatment Twice a Day Treatment Plan Physical Therapy Treatment Plan Bed Mobility Training,Transfer Training,Gait Training, Therapeutic Exercise,Post Op Education,Discharge Planning, Hot or Cold Pack Weight Bearing Status Weight Bearing Status Weight Bear as Tolerated Recommendations To Nursing Amount of Assist Needed 1 Person Assist Discharge Recommendations PT Discharge Recommendations Home with Assistance Transportation Needs at Discharge Private Vehicle
--- NOTE | 2021-08-08 12:27 | PC.NURSE ---
Day shift: Pt has all personal belongings. Paperwork signed and all questions answered. Pt's friend is driving her home and will help with post-op knee care. MD scripts sent electronic by . Dressing remains CDI. CMS intact with good PPP. Passed PT and Ashok-Vac has been removed. D/c teachings done by SANDEEP Tyler. Per Pt she has oxycodone at home. LEft unit at approx 1300 in WC. Taken to car by LINDSAY Villavicencio.
--- NOTE | 2021-08-08 15:07 | CM.IDA ---
Initial DCP Assessment Note Pt is a 81 yo female, resident of [place], now POD#1 from Rt knee surgery by Dr Cornelius PCP: Marilyn Lyle Payer: SUNSHINE/Margaret Reviewed chart, pt discussed in multidisciplinary rounds this morning. Therapy has cleared pt for return home w/family to assist and pt has planned for home, DC order from Ortho has already been initiated this morning. Patient getting changed and eager to return home. No needs expected from DC planning team although will remain available in case this changes today. WILBERTO Martinez
== END 2021-08-08 13:18 | disposition home or self-care (01) ==
LOC: OR 12:56 → AC 12:58
PROVIDERS: PCP Physician Assistant Medical; Referring Provider Orthopaedic Surgery; Visit Provider Orthopaedic Surgery
PROC: 0SRC0JZ Replacement of Right Knee Joint with Synthetic Substitute, Open Approach (ICD-10-PCS; CPT 27447; principal; 2021-08-07 14:30)
DX: M17.11 Unilateral primary osteoarthritis, right knee (principal); J45.909 Unspecified asthma, uncomplicated; F41.9 Anxiety disorder, unspecified; M06.9 Rheumatoid arthritis, unspecified; Z86.73 Personal history of transient ischemic attack (TIA), and cerebral infarction without residual deficits
CPT/HCPCS: 27447; 36415; 73560; 85014; 85018; 94760; 97162; C1776; C9290; J0171; J0690; J1100; J2250; J2704; J3010

== ENCOUNTER → 2021-12-11 11:48 | Outpatient (CLI) | payer MEDICARE, OTHER, SELFPAY ==
[2021-08-07 19:47] VITALS: BMI 21.2
[2021-12-11 13:22] LABS: COVID19 -Nasal RAPID Negative (Negative)
== END ==
PROVIDERS: PCP Physician Assistant Medical; Visit Provider Nurse Practitioner Family
DX: Z20.822 Contact with and (suspected) exposure to COVID-19 (principal)
CPT/HCPCS: 87635

== ENCOUNTER → 2021-12-11 12:34 | Outpatient (CLI) | payer MEDICARE, OTHER, SELFPAY ==
[2021-08-07 19:47] VITALS: BMI 21.2
--- NOTE | 2021-12-11 12:38 | DI.MRI.S_ITS ---
PROCEDURE: MR SHOULDER RT WO CON INDICATIONS: Right shoulder swelling; artificial shoulder joint TECHNIQUE: Noncontrast oblique coronal T2 fast spin echo with fat saturation, oblique sagittal T1 spin echo and T2 fast spin echo with fat saturation, axial T1 spin echo and T2 fast spin echo with fat saturation through the shoulder. COMPARISON: [facility] [place], CR, XR SHOULDER 2+ VIEWS RIGHT, 11/27/2021, 11:33. [facility], MR, MR SHOULDER RT WO CON, 07/21/2020, 14:39. FINDINGS: Image quality: Images are degraded by susceptibility and motion artifact. Rotator cuff: Interval placement of a right shoulder arthroplasty. Bones: Moderate acromioclavicular joint degeneration. The remaining osseous structures are not well seen. Soft tissues: Large glenohumeral joint effusion. IMPRESSION: 1. Large glenohumeral joint effusion about the shoulder arthroplasty, which is nonspecific but can be seen in the setting of particle disease. Dictated by: Ankush Aguilera M.D. on 12/11/2021 at 15:12 Approved by: Ankush Aguilera M.D. on 12/11/2021 at 15:21
== END ==
PROVIDERS: PCP Physician Assistant Medical; Referring Provider Orthopaedic Surgery; Visit Provider Orthopaedic Surgery
DX: M25.411 Effusion, right shoulder (principal); M19.011 Primary osteoarthritis, right shoulder; Z96.611 Presence of right artificial shoulder joint; Z20.822 Contact with and (suspected) exposure to COVID-19
CPT/HCPCS: 73221; 87635; C9803

== ENCOUNTER 2021-12-13 07:31 | Day surgery (SDC) | payer MEDICARE, OTHER, SELFPAY ==
[2021-08-07 19:47] VITALS: BMI 21.2
[2021-12-11 08:30] VITALS: BMI 22.4
[2021-12-13 08:18] VITALS: BP 148/86; PULSE 57; RESP 16; TEMP 36.3; O2SAT 99; BMI 22.4
[2021-12-13] MEDS: LACTATED RINGERS 1,000 ML 42 ML IV (08:33)
--- NOTE | 2021-12-13 09:40 | SUR.PREOP ---
Dr Blevins informed patient will be alone tonight. Has neighbor to give ride home. Does have a button necklace in case of emergencies.
[2021-12-13] MEDS: ONDANSETRON 4 MG/2 ML INJ IV (09:46)
--- NOTE | 2021-12-13 09:49 | SUR.PREOP ---
Block start time [0951] . Monitoring initiated and maintained throughout procedure. Oxygen and medications given per anesthesiologist instructions. Patient remained stable throughout procedure, no adverse reactions noted. Block end time [1001].
--- NOTE | 2021-12-13 09:59 | PM.PREOP ---
Pre-operative Note COVID-19 Criteria for continued procedure: Possibility delay results in more complex future surgery or treatment, Increased loss of function, Continuing or worsening of significant or severe pain, Deterioration of the patient's condition or overall health and Delay expected to result in less-positive ultimate med/surg outcome Interval Note History & Physical reviewed/Exam performed by Physician: Yes Changes to H&P: No
--- NOTE | 2021-12-13 10:44 | SUR.OPER ---
Beach chair with Janessa/Mike shoulder positioner. Lower body on padded OR bed. Head in foam padded head cradle, secured with straps. Non-operative arm secured <90 degrees abduction. Pillow under knees. Safety belt at thigh. Cloth tape over blanket over lower legs.
[2021-12-13] MEDS: CEFAZOLIN 2 GM/20 ML SYRINGE IV (10:45)
[2021-12-13] MEDS: LIDOCAINE 1% W/EPI 20 ML INJ (10:54)
[2021-12-13] MEDS: SODIUM CHLORIDE IRRIG SOLUTION 3,000 ML, EPINEPHrine 1 MG IRR (10:55)
[2021-12-13 11:11] VITALS: BP 147/63; PULSE 60; RESP 15; TEMP 36; O2SAT 95
[2021-12-13 11:26] VITALS: BP 147/58; PULSE 56; RESP 17; O2SAT 94
[2021-12-13] MEDS: OXYCODONE IR 5 MG TABLET PO (11:27)
[2021-12-13] MEDS: ACETAMINOPHEN 325 MG TABLET 650 MG PO (11:27)
[2021-12-13] MEDS: ONDANSETRON 4 MG/2 ML INJ (11:27)
--- NOTE | 2021-12-13 11:27 | PM.OP.1 ---
Operative Date/Time/Diagnoses Date of procedure: 12/13/21 Time of procedure: 10:00 Pre-op diagnosis: Left shoulder effusion after a fall, status post shoulder arthroplasty Post-op diagnosis: same Procedure & Clinicians Procedure: Arthroscopic irrigation and debridement as well as arthroscopic biopsies to be sent for cultures and sensitivities. Same procedure as scheduled: Yes Indications: Right Shoulder effusion Surgeon: Truman Blevins Click Yes if Unassisted: Yes Anesthesia Type: General Operative Notes Findings: Large fluid collection to the anterior aspect of the shoulder. No sign of any loosening of the humeral component. No sign of any injury to the glenoid. Adipose tissue seen to the anterior aspect of the shoulder as well as the glenohumeral joint. No sign of any purulence. No sign of any loose bodies. Closure Type: primary Specimen(s): other (Fluid as well as soft tissue sent for cultures and sensitivities.) Estimated Blood Loss (mL): 5 Procedure in detail: On date of service, Patient was met in the holding area. The operative site was signed and witnessed by the OR staff. The surgeries once again discussed with the patient and any remaining questions they had were answered fully. Patient was taken back to the operating theater and placed on the operating table in a supine position. Great care was taken to ensure that all bony prominences were properly padded. Patient was then placed into the beach chair position. The head and neck were properly positioned and secured. A timeout was performed verifying patient's name, procedure, and the operative site. The upper extremity was then prepped and draped in the normal sterile fashion. Previously, the bony anatomy and portal sites were marked out as well as injected with Marcaine with epinephrine. An 11 blade was used to make an incision in the posterior aspect of the shoulder. 18 gauge spinal needle was placed into the posterior aspect of the shoulder into the glenohumeral joint. Significant amount of fluid was removed and sent to microbiology. Eleven blade was used to make an incision and the camera was placed. The Next under direct visualization, a anterior portal was made. Shaver was brought in anteriorly and a extensive debridement of the glenohumeral joint was performed. There was quite a bit of adipose tissue in the anterior aspect of the shoulder and this was debrided. 8 L of normal saline was irrigated throughout the glenohumeral joint and subacromial space. Shaver was used to debride the adipose tissue and some fraying to the labrum. As mentioned above no sign of any loosening of the humeral implant. No sign of any loose bodies. Once we felt that the glenohumeral joint was adequately irrigated and debrided, camera and shaver were removed. Portal were closed. Patient was extubated and taken to the PACU in stable condition. Complications: none Post-operative Condition: stable Disposition: PACU Plan for aftercare: Sling is just for comfort. Patient can engage in range of motion when she is comfortable.
[2021-12-13 11:37] VITALS: BP 133/75; PULSE 55; RESP 12; O2SAT 94
[2021-12-13 11:42] VITALS: BP 140/54; PULSE 56; RESP 12; O2SAT 94
== END 2021-12-13 12:08 | disposition home or self-care (01) ==
PROVIDERS: PCP Physician Assistant Medical; Referring Provider Orthopaedic Surgery; Visit Provider Orthopaedic Surgery
PROC: (CPT 29805; principal; 2021-12-13 09:15)
DX: M25.412 Effusion, left shoulder (principal); W19.XXXA Unspecified fall, initial encounter
CPT/HCPCS: 29822; 10021; 64450; 87070; 87075; 87205; J0171; J0690; J1100; J2250; J2405; J2704; J3010